=== PATIENT | male | born 1960 | race Caucasian/White ===

== ENCOUNTER 2024-06-24 14:06 | Inpatient (IN) | payer OTHER, SELFPAY ==
[2024-06-24 11:05] VITALS: BP 115/74
[2024-06-24 11:28] LABS: % Basophils 1.2 % (0-2); % Eosinophils 1.8 % (0-6); % Immature Granulocytes 0.4 % (0-0.5); % Lymphocytes 8.2 % (20.5-51.1); % Monocytes 16.8 % (1.7-9.3); % Neutrophils 71.6 % (42.2-75.2); Absolute Basophils 0.1 10^3/uL (0-0.2); Absolute Eosinophils 0.1 10^3/uL (0-0.7); Absolute Lymphocytes 0.5 10^3/uL (1.2-3.4); Absolute Neutrophils 4.1 10^3/uL (1.4-6.5); Hematocrit 31.5 % (39.0-52.0); Hemoglobin 8.9 g/dL (13.0-18.0); Mean Corp Hgb Conc. 28.3 g/dL (33.0-37.0); Mean Corpuscular Hgb 19.8 pg (27.0-31.0); Mean Platelet Volume 8.9 fL (7.4-10.4); Nucleated Red Blood Cells % 0.7 % (-); Platelet Count 213 10^3/uL (130-400); Red Cell Dist. Width 21.5 % (11.5-14.5); White Blood Cell Count 5.7 10^3/uL (4.8-10.8)
[2024-06-24 11:33] LABS: INR 1.63; PT 19.6 Sec (11.4-14.6)
[2024-06-24 11:48] LABS: ALT (SGPT) 35 U/L (0-50); AST (SGOT) 47 U/L (17-59); Albumin 3.7 g/dl (3.5-5.0); Alkaline Phosphatase 178 U/L (38-126); Blood Urea Nitrogen 34 mg/dl (9-20); Carbon Dioxide 24 mmol/L (22-30); Chloride 97 mmol/L (98-107); Glucose 88 mg/dl (70-99); Potassium 4.4 mmol/L (3.5-5.1); Sodium 131 mmol/L (135-145); Total Bilirubin 1.6 mg/dl (0.2-1.3); Total Protein 6.9 g/dl (6.3-8.2); eGFR 44.46
[2024-06-24 11:52] LABS: NT-proBNP 2160 pg/ml
--- NOTE | 2024-06-24 11:59 | ED.GENMED ---
History of Present Illness
<Mercy Ramírez PA-C - Last Filed: 06/24/24 18:10>
General
Chief Complaint: Breathing Problem
Source: patient
Exam Limitations: none
Time Seen by Provider: 06/24/24 11:30
Nursing documentation reviewed up to this point in time: agreed with
History of Present Illness
History of Present Illness:
This is a 64-year-old male with past medical history of A-fib on Eliquis, pacemaker in place, CHF, presents emergency department today with concerns of shortness of breath, generalized weakness, and lower extremity edema. Patient reports this has
been going on for months but notes that the past 2 weeks or so that his symptoms have gotten acutely worse. Patient currently follows with a confidential secretary from [facility]. He saw his confidential secretary around 4 weeks ago and described the symptoms and
they increase his Lasix to 40 mg twice daily and they also started him on Jardiance as well and notes that this does not improve his symptoms and if anything he feels worse. Patient states that the swelling now goes up to his thighs bilaterally.
He denies chest pain. He denies any wheezing
Past History
<Mercy Ramírez PA-C - Last Filed: 06/24/24 18:10>
Past History
ED Past Medical History: Cancer and Other
ED Past Surgical History: Other
Social History
Drug: None
Living: with family
Employment: Employed
Review of Systems
<Mercy Ramírez PA-C - Last Filed: 06/24/24 18:10>
Review of Systems
All Other Systems: ROS reviewed and negative except as documented in HPI and ROS
Phy Exam
<Mercy Ramírez PA-C - Last Filed: 06/24/24 18:10>
Physical Exam
Physical Exam:
General: Patient is well appearing and in no acute distress; non-toxic
Skin: Warm and dry, no rashes or lesions
Head: Normocephalic, atraumatic
Eyes: Sclera non-icteric. EOMs intact.
Cardiac: Regular rate and rhythm, no murmurs
Peripheral Vascular: Bilateral lower extremity edema extending up to mid thigh
Pulm: Normal respiratory effort, no wheezes, rales, rhonchi
Abdomen: No abdominal tenderness to palpation
Neuro: CN II-XII intact, no focal neurologic deficits.
Psychiatric: Appropriate mood and affect.
Scores
<Mercy Ramírez PA-C - Last Filed: 06/24/24 18:10>
Heart Failure Risk
Heart Failure Risk Score: Yes
History of Stroke or TIA: No
History of intubation for respiratory distress: No
Heart rate on ED arrival >/= 110: No
SaO2 <90% on arrival on room air: No
HR >/=110 during 3min walk test (or too ill to perform test): No
ECG has acute ischemic changes: No
Urea >/=12mmol/L (BUN 33.6mg/dL): Yes
Serum CO2>/=35mmol/L: No
Troponin I or T elevated to [place] Level (0.4mg/dL): No
NT-proBNP >/=5,000ng/L (5,000pg/ml): No
HF Risk Score: 1
Admission Status: MEDIUM RISK 5.1% Consider observation or discharge to home with homecare & f/u visit to PCP/Bugg[facility], or SNF for treatment
Course
<Mercy Ramírez PA-C - Last Filed: 06/24/24 18:10>
Orders/Labs/Results
Orders:
Orders
06/24/24 Lunch
2 Gram Sodium [Sodium, 2 Gram]
At Your Request: Full Participation
06/24/24 11:01
EKG [Electrocardiogram (*1)] Urgent
Reason for Study: Shortness of Breath
EKG- Treatment ONCE
CR Chest - 2 Views Urgent
Comment:
Reason For Exam: SOB
06/24/24 11:14
Complete Blood Count/With Diff Urgent
Comprehensive Metabolic Panel Urgent
Glycohemoglobin (HgbA1c) Urgent
Pro-BNP [NT-proBNP] Urgent
Prothrombin Time Urgent
TSH Urgent
Total Thyroxine Urgent
Troponin I Urgent
06/24/24 11:48
Interrogate Pacemaker- Treatment ONCE
06/24/24 12:34
Furosemide [Lasix] 40 mg IV NOW STA
06/24/24 13:36
Admit/Transfer Patient As Directed
Co-Sign Provider:
Level of Care: Inpatient admission
Assign to:: Telemetry
Physician / Group: Clark Schulte
Diagnosis: acute on chronic HFpEF
Reason for Telemetry: Acute Heart Failure
Date to Stop Telemetry: 06/27/24
Time to Stop Telemetry: 11:00
Reason for Hospitalization: acute on chronic HFpEF
Expected length of stay greater than two midnights?: Yes
ELOS- Estimated Length of Stay in days: 3
I certify the patient meets the requirements for IP care: Yes
PRN Pain Medication Management As Directed
May give lesser potent ordered pain med per pt: Yes
preference::
Protocol:: Medication orders for pain may be administered in a
manner that supports deferring to patient preference
when the pt is:
- Requesting an ordered lesser potent pain medication.
Least to most potent pain medications are defined
as: acetaminophen < NSAID < tramadol < opioids
(morphine, oxycodone, hydromorphone).
- Requesting a lesser dose of the same medication IF
ORDERED.
- Requesting a less intrusive route of administration
if both routes are prescribed by the provider (PO <
IV).
06/24/24 13:38
Code Status As Directed
Resuscitation Status: Full Code
06/24/24 15:10
Add On- LAB Routine
Tests Added?: TSH; T4; A1c
Echo 2D MMode Color/Doppler Routine
Reason for Study: heart failure
CARDIOLOGY CONSULT Routine
Consulting Provider: Calin Curiel
Was physician already notified: Yes
Reason for consult: AoC HFpEF
HF DIETARY CONSULT Routine
HF EDUCATOR CONSULT Routine
Comment:
Activity As Directed
Activity Level: As Tolerated
Intake/ Output As Directed
Frequency: Per unit guidelines
Patient Education As Directed
Type: CHF folder
Comment: give on admission. Document in Interdisciplinary Education record
Sleep Apnea Assessment by RN As Directed
Comment:
Physician Instructions:
Vital Signs As Directed
Frequency: Other
Additional Instructions:: Q12 or per unit guidelines if more frequent.
Weight As Directed
Frequency: Daily
Type of Scale: Standing Scale
Comment: Daily morning weight. If unable to stand, use balanced bed scale.
Weight As Directed
Frequency: Once
Type of Scale: Standing Scale
Comment: Upon Admission. If unable to stand, use balanced bed scale.
Pulse Ox/cont/shift [RESP] Routine
Quantity: 1
Special Instructions: Daily pulse oximetry at rest. If greater than 92% at rest also obtain pulse oximetry
while ambulating as tolerated.
06/24/24 15:51
Acetaminophen [Tylenol] 650 mg PO Q4HPRN PRN
06/24/24 16:00
Furosemide [Lasix] 80 mg IV BID AT 0800,1600
06/24/24 20:00
Apixaban [Eliquis] 5 mg PO BID
Metoprolol [Lopressor] 50 mg PO BID
Potassium Chloride [KCl] 20 meq PO BID
06/25/24 06:00
Cardiovascular Evaluation IN AM
Complete Blood Count/No Diff IN AM
Comprehensive Metabolic Panel IN AM
Magnesium IN AM
06/25/24 08:00
Dapagliflozin [Farxiga] 10 mg PO DAILY
Multivitamin [Theragran] 1 tablet PO DAILY
mesalamine [Lialda] See Dose Instructions PO DAILY
06/27/24 11:00
DC Protocol for Telemetry ONCE
Abnormal Lab Results
06/24/24
11:14
RBC 4.50 L 10^6/uL
(4.70-6.10)
Hgb 8.9 L g/dL
(13.0-18.0)
Hct 31.5 L %
(39.0-52.0)
MCV 70.0 L fL
(80.0-94.0)
MCH 19.8 L pg
(27.0-31.0)
MCHC 28.3 L g/dL
(33.0-37.0)
RDW 21.5 H %
(11.5-14.5)
Absolute Lymphs (auto) 0.5 L 10^3/uL
(1.2-3.4)
Absolute Monos (auto) 1.0 H 10^3/uL
(0.1-0.6)
Lymphocytes % 8.2 L %
(20.5-51.1)
Monocytes % 16.8 H %
(1.7-9.3)
PT 19.6 H Sec
(11.4-14.6)
Sodium 131 L mmol/L
(135-145)
Chloride 97 L mmol/L
(98-107)
BUN 34 H mg/dl
(9-20)
Creatinine 1.7 H mg/dL
(0.7-1.3)
Total Bilirubin 1.6 H mg/dl
(0.2-1.3)
Alkaline Phosphatase 178 H U/L
(38-126)
06/24/24 11:14
06/24/24 11:14
Vital Signs
Initial and Last Documented VS:
Initial Vital Signs
Pulse Resp BP Pulse Ox
87 20 115/74 94
06/24/24 11:05 06/24/24 11:05 06/24/24 11:05 06/24/24 11:05
Last Documented Vital Signs
Temp Pulse Resp BP Pulse Ox
97.4 F 66 18 125/79 93
06/24/24 15:58 06/24/24 15:58 06/24/24 15:58 06/24/24 15:58 06/24/24 15:58
<Efrain Littlejohn, DO - Last Filed: 06/24/24 12:12>
Orders/Labs/Results
Orders:
Orders
06/24/24 Lunch
2 Gram Sodium [Sodium, 2 Gram]
At Your Request: Full Participation
06/24/24 11:01
EKG [Electrocardiogram (*1)] Urgent
Reason for Study: Shortness of Breath
EKG- Treatment ONCE
CR Chest - 2 Views Urgent
Comment:
Reason For Exam: SOB
06/24/24 11:14
Complete Blood Count/With Diff Urgent
Comprehensive Metabolic Panel Urgent
Glycohemoglobin (HgbA1c) Urgent
Pro-BNP [NT-proBNP] Urgent
Prothrombin Time Urgent
TSH Urgent
Total Thyroxine Urgent
Troponin I Urgent
06/24/24 11:48
Interrogate Pacemaker- Treatment ONCE
06/24/24 12:34
Furosemide [Lasix] 40 mg IV NOW STA
06/24/24 13:36
Admit/Transfer Patient As Directed
Co-Sign Provider:
Level of Care: Inpatient admission
Assign to:: Telemetry
Physician / Group: Clark Schulte
Diagnosis: acute on chronic HFpEF
Reason for Telemetry: Acute Heart Failure
Date to Stop Telemetry: 06/27/24
Time to Stop Telemetry: 11:00
Reason for Hospitalization: acute on chronic HFpEF
Expected length of stay greater than two midnights?: Yes
ELOS- Estimated Length of Stay in days: 3
I certify the patient meets the requirements for IP care: Yes
PRN Pain Medication Management As Directed
May give lesser potent ordered pain med per pt: Yes
preference::
Protocol:: Medication orders for pain may be administered in a
manner that supports deferring to patient preference
when the pt is:
- Requesting an ordered lesser potent pain medication.
Least to most potent pain medications are defined
as: acetaminophen < NSAID < tramadol < opioids
(morphine, oxycodone, hydromorphone).
- Requesting a lesser dose of the same medication IF
ORDERED.
- Requesting a less intrusive route of administration
if both routes are prescribed by the provider (PO <
IV).
06/24/24 13:38
Code Status As Directed
Resuscitation Status: Full Code
06/24/24 15:10
Add On- LAB Routine
Tests Added?: TSH; T4; A1c
Echo 2D MMode Color/Doppler Routine
Reason for Study: heart failure
CARDIOLOGY CONSULT Routine
Consulting Provider: Calin Curiel
Was physician already notified: Yes
Reason for consult: AoC HFpEF
HF DIETARY CONSULT Routine
HF EDUCATOR CONSULT Routine
Comment:
Activity As Directed
Activity Level: As Tolerated
Intake/ Output As Directed
Frequency: Per unit guidelines
Patient Education As Directed
Type: CHF folder
Comment: give on admission. Document in Interdisciplinary Education record
Sleep Apnea Assessment by RN As Directed
Comment:
Physician Instructions:
Vital Signs As Directed
Frequency: Other
Additional Instructions:: Q12 or per unit guidelines if more frequent.
Weight As Directed
Frequency: Daily
Type of Scale: Standing Scale
Comment: Daily morning weight. If unable to stand, use balanced bed scale.
Weight As Directed
Frequency: Once
Type of Scale: Standing Scale
Comment: Upon Admission. If unable to stand, use balanced bed scale.
Pulse Ox/cont/shift [RESP] Routine
Quantity: 1
Special Instructions: Daily pulse oximetry at rest. If greater than 92% at rest also obtain pulse oximetry
while ambulating as tolerated.
06/24/24 15:51
Acetaminophen [Tylenol] 650 mg PO Q4HPRN PRN
06/24/24 16:00
Furosemide [Lasix] 80 mg IV BID AT 0800,1600
06/24/24 20:00
Apixaban [Eliquis] 5 mg PO BID
Metoprolol [Lopressor] 50 mg PO BID
Potassium Chloride [KCl] 20 meq PO BID
06/25/24 06:00
Cardiovascular Evaluation IN AM
Complete Blood Count/No Diff IN AM
Comprehensive Metabolic Panel IN AM
Magnesium IN AM
06/25/24 08:00
Dapagliflozin [Farxiga] 10 mg PO DAILY
Multivitamin [Theragran] 1 tablet PO DAILY
mesalamine [Lialda] See Dose Instructions PO DAILY
06/27/24 11:00
DC Protocol for Telemetry ONCE
Abnormal Lab Results
06/24/24
11:14
RBC 4.50 L 10^6/uL
(4.70-6.10)
Hgb 8.9 L g/dL
(13.0-18.0)
Hct 31.5 L %
(39.0-52.0)
MCV 70.0 L fL
(80.0-94.0)
MCH 19.8 L pg
(27.0-31.0)
MCHC 28.3 L g/dL
(33.0-37.0)
RDW 21.5 H %
(11.5-14.5)
Absolute Lymphs (auto) 0.5 L 10^3/uL
(1.2-3.4)
Absolute Monos (auto) 1.0 H 10^3/uL
(0.1-0.6)
Lymphocytes % 8.2 L %
(20.5-51.1)
Monocytes % 16.8 H %
(1.7-9.3)
PT 19.6 H Sec
(11.4-14.6)
Sodium 131 L mmol/L
(135-145)
Chloride 97 L mmol/L
(98-107)
BUN 34 H mg/dl
(9-20)
Creatinine 1.7 H mg/dL
(0.7-1.3)
Total Bilirubin 1.6 H mg/dl
(0.2-1.3)
Alkaline Phosphatase 178 H U/L
(38-126)
06/24/24 11:14
06/24/24 11:14
Vital Signs
Initial and Last Documented VS:
Initial Vital Signs
Pulse Resp BP Pulse Ox
87 20 115/74 94
06/24/24 11:05 06/24/24 11:05 06/24/24 11:05 06/24/24 11:05
Last Documented Vital Signs
Temp Pulse Resp BP Pulse Ox
97.4 F 66 18 125/79 93
06/24/24 15:58 06/24/24 15:58 06/24/24 15:58 06/24/24 15:58 06/24/24 15:58
<Mercy Ramírez PA-C - Last Filed: 06/24/24 18:10>
MDM/Problems Addressed
Differential Diagnosis Includes:
ddx include acute heart failure, symptomatic anemia, malignancy, ACS, pneumonia
MDM/Problems Addressed:
64-year-old male presents emergency department today with concerns of bilateral lower extremity edema dyspnea upon exertion, and generalized weakness for the past few months acutely worsening the past few weeks. He has been unresponsive to
increases in his medication at home. Patient states that he barely able to get dressed without significant some shortness of breath. Here in emergency department his proBNP is elevated he is fluid overloaded on exam he has mild interstitial edema
on chest x-ray. Will admit for IV diuresis
<Mercy Ramírez PA-C - Last Filed: 06/24/24 18:10>
*Critical Care Note
Total Time (30-74mins, 75-104mins- exclusive of procedures): Not Applicable
ED Attending Note
<Mercy Ramírez PA-C - Last Filed: 06/24/24 18:10>
-
Portions of this chart may have been created with voice recognition software.� Occasional wrong word or��sound alike� substitutions may have occurred due to the inherent limitations of voice recognition software.
<Efrain Littlejohn DO - Last Filed: 06/24/24 12:12>
ED Attending Note
Patient seen and examined by attending physician: Yes
I performed the substantive portion of visit, reviewed & personally made and approve the management plan that is documented in note by myself or TERRA.: Yes
ED Attending Note:
Seen with JOE examined independently 64-year-old male with AVR x 2 heart failure presents with fatigue shortness of breath dyspnea on exertion despite his meds being titrated by his confidential secretary here looks like he has acute on chronic anemia, pain
hard on his chest x-ray
Discharge Plan
Departure
Patient Disposition: Admit
Date of Disposition: 06/24/24
Time of Disposition: 12:44
Presentation/result/management discussed w/ accepting MD/DO: Hospitalist
Patient with high blood pressure during this ER visit?: No
Condition: Fair
Discharge Problem:
Acute on chronic heart failure, Acute kidney injury, Anemia
Interventions
Interventions:
*Risk Screen - Suicide Last Done: 06/24/24 12:11
*General Assessment Last Done: 06/24/24 12:11
*Neglect/Abuse Screening Last Done: 06/24/24 12:11
*ED- Fall Risk Assessment Last Done: 06/24/24 12:11
*ED COVID-19 Vaccine History Last Done: 06/24/24 12:11
*Nursing Disposition Last Done: 06/24/24 15:09
ED- Cardiac Assessment Last Done: 06/24/24 12:15
ED- Neurological Assessment Last Done: 06/24/24 12:14
ED- Pulmonary Assessment Last Done: 06/24/24 12:24
Discharge Date and Time
Discharge Date/Time: 06/24/24 15:10
[2024-06-24 12:11] VITALS: BP 112/72
[2024-06-24 12:13] LABS: Anisocytosis 2+; Hypochromasia 3+; Normal RBC Morphology No; Polychromasia 2+
[2024-06-24 12:14] LABS: Acanthocytes 1+; Ovalocytes 1+
[2024-06-24 12:15] VITALS: BP 112/72
[2024-06-24 12:17] LABS: Troponin I 0.022 ng/ml
[2024-06-24] MEDS: LASIX 40 MG IV (13:16)
--- NOTE | 2024-06-24 14:20 | CON.CAR ---
Addendum entered and electronically signed by Calin Curiel MD 06/24/24 20:31:
64-year-old man admitted with acute on chronic HFimpEF. He underwent surgical bioprosthetic aortic valve replacement in 2012, subsequently with heart failure with improved EF, initially in 2012 EF was 15 to 20% and subsequently 50 to 55% December
2020. He required TAVR and SAVR in August 2023. Pacemaker implantation 2021.
PMH: Ulcerative colitis, anemia with history of GI bleeding and now with persistent/permanent A-fib, HFimpEF, nonobstructive CAD at catheterization
PSH: SAVR May 2012, TAVR in SAVR August 2023, history of LV thrombectomy 2012, pacemaker 2021 (Medtronic), arthroscopic knee surgery, jaw surgery, herniorrhaphy
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
Outpatient meds: Apixaban, Jardiance, furosemide 80 twice daily, mesalamine, metoprolol tartrate 50 twice daily, potassium 20 twice daily
125/79, pulse 66, respiratory 18, sats 93%, Weight is 97.9 kg, no acute distress, lungs relatively clear, regular rate and rhythm, JVD elevated, soft systolic murmur, distant heart tones, abdomen benign, 1+ to 2+ edema
EKG: Atrial fibrillation, ventricular pacing
Chest x-ray: Massive cardiomegaly, rule out pericardial effusion, vascular congestion
Echo 06/24/2024: Moderate LVH, D-shaped septum, septal hypokinesis/contraction abnormality with severe inferoapical hypokinesis, EF 45-50%, MAC, mild MR, severely dilated left atrium, TAVR in SAVR, peak/mean gradient 12/6, trace AI could be
underestimated, severely dilated and hypokinetic RV, pacing wires, severe TR, moderate right atrial dilatation, pulmonary systolic pressure 56 mmHg, aorta is 4.5 cm
Hemoglobin 8.9, was 12.9 years ago, sodium 131, BUN and creatinine 34 and 1.7, troponin 0.02, proBNP 2160
Impression:
Acute on chronic heart failure with mildly reduced EF
TAVR in SAVR 2023
Nonischemic cardiomyopathy with improved EF, initial EF 15 to 20% prior to SAVR
RV dysfunction with moderate to severe pulmonary hypertension and severe tricuspid regurgitation
High-grade heart block with Medtronic pacemaker
Permanent atrial fibrillation
Ulcerative colitis with bleeding (which is why mechanical valve was not placed in 2012)
History of GI bleed
Nonobstructive CAD by catheterization 2012
Plan:
He presents with acute on chronic heart failure with mildly reduced EF, possibly related in large part to RV dysfunction, pulmonary hypertension and tricuspid regurgitation which might relate to pacemaker. His right heart is deteriorated
substantially since echo of 2020, and pulmonary artery systolic pressure has risen somewhat. It seems unlikely that he is WHO class I. I wonder if tricuspid regurgitation from pacing lead is playing a role in RV dysfunction.
Given this, will be difficult to optimize his volume status in the setting of right heart dysfunction.
For now, continue IV furosemide and dapagliflozin. Not clear that he is a good candidate for spironolactone given his presumed CKD although we do not know if there is an element of DOMI.
Unclear that tricuspid valve intervention would be of value in this situation. Unclear that transesophageal echo would be of much value. His IVC is dramatically dilated. We will continue to follow.
Will obtain old records.
Original Note:
Consultation
Consultation Request
Date/Time Consultation Requested: 06/24/2024, 1400
Date/Time Consultation Performed: 06/24/2024, 1420
Requesting Provider: Mercy Ramírez PA-C
Performing Provider: ERWIN Monroy for Dr. Curiel
Reason for Consultation: FERGUSON and fatigue
Medical History
-
Chief Complaint: FERGUSON, fatigue
History of Present Illness:
64-year-old male with history of bioprosthetic AVR at [facility] on 05/27/2012 with LV thrombus detected on SAMARIA prior to surgery and resected during surgery, EF 15 to 20% prior to AVR, improvement in LV function to EF 50 to 55% on echo 12/2020,
subsequent valve in valve TAVR August [address] [facility], atrial flutter/fibrillation status post multiple cardioversions, now with permanent atrial fibrillation, syncope with bradycardia and heart block status post permanent pacemaker 2021 (Medtronic)
at [facility], anemia w/ GI bleed due to ulcerative colitis 2007, Echo at that time of pacemaker in 2021 showed EF 65% with stable bioprosthetic valve mean gradient 12 mmHg. He was previously followed by Dr. Bellamy and was last seen in May
2022. More recently he has been followed by Dr. Josh Prater at [facility]. Patient reports he has not felt much better since the TAVR in August 2023 with increasing shortness of breath with exertion and lower extremity edema. He has had a 10 pound
weight gain over the past month with doubling of outpatient diuretic to Lasix 80 mg twice daily 3 weeks ago. He was subsequently started on Jardiance. He tells me his annual pacemaker check last week showed permanent atrial fibrillation. He
lives alone and was seen by family members 4 days ago who were concerned about his health and advised him to get medical care. He tells me he had a few things to get taking care of over the past few days but that his brother dropped him off here at
the ED for evaluation today.
ED evaluation:
Chest x-ray mild interstitial cardiogenic pulmonary edema, previous valve in valve TAVR
EKG: V paced
BUN/creatinine 34/1.7, NA 131, K4.4, hemoglobin 8.9
proBNP 2160
Troponin 0.022,
Past medical history:
Bioprosthetic AVR 05/27/2012 at [facility]
TAVR August 2023, [facility]
LV thrombus 2012 resected at time of bioprosthetic AV
Atrial fibrillation, now permanent
-A-fib prior to surgery and 2012, status post-SAMARIA cardioversion 07/2012
-Cardioversion 2020
Syncope with heart block status post permanent pacemaker 2021, Medtronic, at [facility]
Ulcerative colitis
Anemia
Heart failure with reduced EF
cardiomyopathy
Nonobstructive CAD per cath 05/2012
GI bleed
Past Medical History
Past Medical History: Other (As above)
Past Surgical History: Other (Bioprosthetic AVR 2012, pacemaker 02/2022, torn meniscus repair 2015, jaw surgery , right inguinal hernia repair 1993)
Social History
Tobacco: Former Smoker (Quit 20 years ago)
Alcohol: Occasional (A beer a couple times a week)
Living: Alone
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
Family History
Family History: Other (Father with hypertension, CAD)
Allergies / Home Medications
Allergy/AdvReac Type Severity Reaction Status Date / Time
amoxicillin Allergy Unknown Unknown Verified 12/24/20 07:28
�Medication �Instructions �Recorded �Confirmed �Type
metoprolol tartrate 50 mg tablet 50 mg PO BID 07/11/12 06/24/24 History
mesalamine 1.2 gram tablet,delayed 4.8 g PO DAILY 04/12/16 06/24/24 History
release (Lialda)
apixaban 5 mg tablet (Eliquis) 5 mg PO BID 12/24/20 06/24/24 History
acetaminophen 650 mg 1,300 mg PO [id number] PRN mild pain 06/24/24 06/24/24 History
tablet,extended release (Tylenol 8
Hour)
empagliflozin 10 mg tablet 10 mg PO DAILY 06/24/24 06/24/24 History
(Jardiance)
furosemide 40 mg tablet (Lasix) 80 mg PO BID 06/24/24 06/24/24 History
potassium chloride 20 mEq 20 meq PO BID 06/24/24 06/24/24 History
tablet,extended release
therapeutic multivitamin 1 tab PO DAILY 06/24/24 06/24/24 History
Review of Systems
-
History Source: Patient
Constitutional: No Symptoms
Physical Exam
Vital Signs
Pulse Resp BP Pulse Ox
63 14 120/83 97
06/24/24 12:15 06/24/24 12:15 06/24/24 13:16 06/24/24 12:15
Lab Results
06/24/24 11:14
06/24/24 11:14
Troponin I 0.022 ng/ml 06/24/24 11:14
Yuv-H-Acuoicicgzw Pept 2160 pg/ml 06/24/24 11:14
GEN: No distress, lying flat in bed awake, Ox3
HEENT: supple, anicteric, mmm
LUNGS: Rales at bases
CV: Reg, S1/S2, 2 out of 6 diastolic murmur at base, 3 out of 6 systolic ejection murmur left lower sternal border and apex
ABD: soft, BS+, NT/ND
EXT: 2+ bilateral lower extremity edema to thighs
NEURO: Gross non-focal
SKIN: No rash
Impression / Plan
-
PCP:
Primary learning developer, previously Dr. Bellamy, currently Dr. Josh Prater at [facility]
Impression:
Acute heart failure\\
Aortic valve disease status post bioprosthetic AVR 2012, #[id number] (at [facility]), subsequent valve in valve TAVR 08/2023 (at [facility])
Lower extremity edema
Dyspnea on exertion
Atrial fibrillation, permanent
Chronic oral anticoagulation
Permanent pacemaker, Medtronic
Nonobstructive CAD per cath 05/2012
Cardiomyopathy
Previous cardiovascular testing:
Echo 12/17/2020: EF 50 to 55%, mod LVH, mildly dilated RV with normal systolic function, severe LAE, well-seated bioprosthetic AV peak/mean 15/9 mmHg, mild to moderate TR, PAP 43 to 48 mmHg, proximal ascending aorta 4.5 cm
Echo 01/25: EF 50-55%, stable AVR, mean gradient 6, PAP 34-39
Echo 01/23, EF 50 to 55%, stable AVR, mean gradient 11
SAMARIA 07/20 EF 45%
Cardiac cath 05/2012, nonobstructive CAD, elevated filling pressures
Plan:
64-year-old male with history of bioprosthetic AVR at [facility] on 05/27/2012 with LV thrombus detected on SAMARIA prior to surgery and resected during surgery, EF 15 to 20% prior to AVR, improvement in LV function to EF 50 to 55% on echo 12/2020,
subsequent valve in valve TAVR August 2024 at [facility], atrial flutter/fibrillation status post multiple cardioversions, now with permanent atrial fibrillation, syncope with bradycardia and heart block status post permanent pacemaker 2021 (Medtronic)
at [facility], anemia w/ GI bleed due to ulcerative colitis 2007, Echo at that time of pacemaker in 2021 showed EF 65% with stable bioprosthetic valve mean gradient 12 mmHg. He was previously followed by Dr. Bellamy and was last seen in May
2022. More recently he has been followed by Dr. Josh Prater at [facility]. Patient reports he has not felt much better since the TAVR in August 2023 with increasing shortness of breath with exertion and lower extremity edema. He has had a 10 pound
weight gain over the past month with doubling of outpatient diuretic to Lasix 80 mg twice daily 3 weeks ago. He was subsequently started on Jardiance. He tells me his annual pacemaker check last week showed permanent atrial fibrillation. He
lives alone and was seen by family members 4 days ago who were concerned about his health and advised him to get medical care. He tells me he had a few things to get taking care of over the past few days but that his brother dropped him off here at
the ED for evaluation today.
1. Acute heart failure
-Volume overloaded on exam with significant lower extremity edema, crackles, proBNP 0 chest x-ray with mild interstitial pulmonary edema. Patient has not been responsive to up titration of outpatient diuretics and advancing of GDMT with recent
addition of Jardiance. Chronically on metoprolol tartrate 50 mg twice daily. Says he was previously on lisinopril but caused high blood pressure (?)
-Admit for IV diuresis
-Check echo
-Get records from current learning developer. I called office and requested.
-Continue Jardiance
-Consider adding JOEY/ARB/ARNI and spironolactone
-Monitor daily BMP and mag
-Daily weights, I/O
2. History of bioprosthetic AVR and valve in valve TAVR
-Check echo to assess status of prosthetic valves
-Getting records from previous learning developer
-SBE prophylaxis
3. Atrial fibrillation
-Pacemaker remotely interrogated in the ED shows that he has been in A-fib for at least the past year. Rates controlled.
-Previous history of cardioversions. Never had ablation. Unclear if he was ever on antiarrhythmic therapy.
-Continue oral anticoagulation with Eliquis. Denies bleeding concerns
-Rate control with metoprolol tartrate. Depending on LV function may switch to metoprolol succinate.
-Monitor on telemetry
-EKG personally reviewed: V paced
4. Hyperlipidemia
Check FLP
-Previously on atorvastatin
5. History of pacemaker
-Placed in 2021 when he presented with syncope and noted to have heart block
-Medtronic dual-chamber device
-Remote interrogation in ED shows permanent atrial fibrillation for at least the past year, V paced 96%, 10 years on battery
Data Reviewed
-
EKG: Tracing Personally Visualized and interpreted
Medical Tests (Nuc Med, Echo etc): Image Personally Visualized and interpreted
Labs: Labs Reviewed by me
--- NOTE | 2024-06-24 14:54 | HPS.HSE ---
Family Physician
-
Family Physician: Mario Merchant
Chief Complaint
-
Shortness of breath; weight gain; fatigue
History of Present Illness
Mario Kelly, 64-year-old male with a complicated cardiac history, has had worsening dyspnea on exertion, progressive weight gain which has been refractory to increased furosemide dosing and fatigue over the past couple of months. He has a history of
dilated aortic root for which he underwent open heart replacement in 2012; this failed and required a TAVR in 2023. He also has a history of atrial fibrillation, and has a pacemaker. Also started on empagliflozin a month or so ago. His furosemide
was increased from 40 mg BID to 80 mg BID a month ago for weight gain, but that did not help. He does not check his weights at home but reports worsening LE edema. Also reports that furosemide has not been making him urinate as much as he used to;
took 80 PO before coming to the ED this morning, and to go to the bathroom only once.
Medical History
Past Medical History
Past Medical History: Reports Other (HFpEF; AFib; pacemaker in place; dilated aortic root; ulcerative colitis; hyperlipidemia)
Past Surgical History: Reports Other (open heart aortic valve replacement 2012; pacemaker implant 2021; TAVR 2023; right inguinal hernia repair 1993; L torn meniscus repair 2015)
Social History
Tobacco: Former Smoker
Alcohol: Occasional
Drug: None
Family History
Family History: Not pertinent
Allergies / Home Medications
Allergies reflects when Allergies were last updated in [facility].
Home Medications with original date entered in [facility]
Allergy/Medication List:
Allergies
Allergy/AdvReac Type Severity Reaction Status Date / Time
amoxicillin Allergy Unknown Unknown Verified 12/24/20 07:28
Home Medications
metoprolol tartrate 50 mg tablet 50 mg PO BID 07/11/12
mesalamine 1.2 gram tablet,delayed release (Lialda) 4.8 g PO DAILY 04/12/16
apixaban 5 mg tablet (Eliquis) 5 mg PO BID 12/24/20
acetaminophen 650 mg tablet,extended release (Tylenol 8 Hour) 1,300 mg PO Q29PEIN PRN mild pain 06/24/24
empagliflozin 10 mg tablet (Jardiance) 10 mg PO DAILY 06/24/24
furosemide 40 mg tablet (Lasix) 80 mg PO BID 06/24/24
potassium chloride 20 mEq tablet,extended release 20 meq PO BID 06/24/24
therapeutic multivitamin 1 tab PO DAILY 06/24/24
Review of Systems
-
Constitutional: Reports Fatigue and Other (weight gain)
EENT: Reports No Symptoms
Respiratory: Reports Other (dyspnea on exertion)
Cardiac: Reports No Symptoms
Abdomen/GI: Reports No Symptoms
: Reports No Symptoms
Musculoskeletal: Reports No Symptoms
Skin: Reports No Symptoms
Neurological: Reports No Symptoms
Endocrine: Reports No Symptoms
Hematologic/Lymphatic: Reports No Symptoms
Psych: Reports No Symptoms
Physical Exam
Vital Signs
Vital Signs
Pulse Resp BP Pulse Ox
63 14 120/83 97
06/24/24 12:15 06/24/24 12:15 06/24/24 13:16 06/24/24 12:15
Physical Exam
General: No Apparent Distress and Comfortable
HEENT: NormoCephalic, Anicteric, Moist mucous membranes and Atraumatic
Respiratory: Non Labored Respirations and Other (decreased breath sound bilaterally at bases)
Cardiac: S1/S2 and Regular Rhythm; No Murmur, Rub or Gallop
GI: Soft, Non Tender and Distended
Musculoskeletal: No Clubbing, No Cyanosis, Edema, Left Lower Extremity (3+) and Edema, Right Lower Extremity (3+)
Skin: Warm, Dry and IV/Catheter Site
Neuro: Awake, Alert, Oriented, No Motor Deficits and No Sensory Deficits
Hematologic/Lymphatic: No Lymphadenopathy
Psych: Calm and Intact Judgment/Insight
Laboratory Results
-
06/24/24 11:14
06/24/24 11:14
Laboratory Results
PT 19.6 Sec (11.4-14.6) H 06/24/24 11:14
INR 1.63 06/24/24 11:14
Total Bilirubin 1.6 mg/dl (0.2-1.3) H 06/24/24 11:14
AST 47 U/L (17-59) 06/24/24 11:14
ALT 35 U/L (0-50) 06/24/24 11:14
Alkaline Phosphatase 178 U/L (38-126) H 06/24/24 11:14
Troponin I 0.022 ng/ml 06/24/24 11:14
Impression/Plan
-
Acute on chronic heart failure with preserved ejection fraction
- Hypervolumia on exam; pro-BNP 2160, CXR with pulmonary edema and severe cardiomegaly.
- IV furosemide 80 mg BID.
- Follow I&O and daily weight.
- 2 gram sodium diet.
- Continue SGLT2 and metoprolol.
- Check echocardiogram.
- Cardiology consultation.
Aortic valvular disease
History of aortic root dilation
Status-post open heart valve replacement 2012
Status-post TAVR 2023
- Echocardiogram.
- Follows cardiology team at [facility].
Permanent atrial fibrillation
Sinus bradycardia
Status-post pacemaker placement
- Continue metoprolol and apixaban.
- Follow on telemetry.
Hypokalemia
- Continue potassium supplementation.
- Follow CMP and Mg; replete as needed.
Hyponatremia
- Mild, and likely hypervolumic.
- Follow CMP.
Elevated creatinine
- Baseline unclear, although he denies CKD.
- If this is an DOMI, likely cardiorenal and should respond to diuresis.
- Follow CMP.
Microcytic anemia
- Of unclear etiology.
- Check iron studies and lysis labs.
Hyperbilirubinemia
Elevated alkaline phosphatase
- Of unclear etiology.
- Follow CMP.
Primary hypertension
- Normotensive and stable.
- Continue metoprolol and diuresis.
Hyperlipidemia
- Check lipids.
- Previously on statin for a couple of days and did not like how he felt.
Ulcerative colitis
- Stable and not in a flare.
- Continue mesalamine.
Chronic back pain
- Continue acetaminophen as needed.
Thromboprophylaxis
- Apixaban.
Code status
- Full.
[2024-06-24 15:57] LABS: Total Thyroxine 5.72 ug/dl (5.5-11.0)
[2024-06-24 15:58] VITALS: BP 125/79; BMI 29.3
[2024-06-24 16:11] LABS: TSH 4.63 uIU/ml (0.47-4.68)
--- NOTE | 2024-06-24 19:19 | PTCARENOTE ---
Received patient from ED, ambulated from strecher to bed. AAOx3, VSS. denies SOB, pain or discomfort. Oriented to unit.
[2024-06-24 19:59] VITALS: BP 121/72
[2024-06-24] MEDS: ELIQUIS 5 MG PO (20:16)
[2024-06-24] MEDS: LOPRESSOR 50 MG PO (20:16)
[2024-06-24] MEDS: KCL 20 MEQ PO (20:17)
[2024-06-24 23:55] VITALS: BP 126/67
[2024-06-25 03:35] VITALS: BP 119/74
--- NOTE | 2024-06-25 04:24 | DOWNTIME ---
There was a [employer] Client Insurance Clerk Downtime on 06/25/2024 from 0100 to 06/26/2023 at 0420 . Downtime documentation of patient's care, including medication administrations, has been reconciled in the electronic record per guidelines. Refer to the
patient's paper chart under the miscellaneous tab to see printed paper medication records and downtime forms.
[2024-06-25 06:00] VITALS: BMI 28.7
[2024-06-25 07:30] VITALS: BP 112/69
[2024-06-25 08:20] LABS: Hematocrit 30.7 % (39.0-52.0); Hemoglobin 8.8 g/dL (13.0-18.0); Mean Corp Hgb Conc. 28.7 g/dL (33.0-37.0); Mean Corpuscular Hgb 19.9 pg (27.0-31.0); Mean Corpuscular Volume 69.3 fL (80.0-94.0); Mean Platelet Volume 9.5 fL (7.4-10.4); Platelet Count 183 10^3/uL (130-400); Red Blood Cell Count 4.43 10^6/uL (4.70-6.10); Red Cell Dist. Width 21.1 % (11.5-14.5); Reticulocyte Count 2.1 % (0.4-2.8); White Blood Cell Count 4.9 10^3/uL (4.8-10.8)
[2024-06-25 08:48] LABS: ALT (SGPT) 32 U/L (0-50); AST (SGOT) 41 U/L (17-59); Albumin 3.5 g/dl (3.5-5.0); Alkaline Phosphatase 177 U/L (38-126); Blood Urea Nitrogen 34 mg/dl (9-20); Calcium 8.7 mg/dl (8.4-10.2); Carbon Dioxide 23 mmol/L (22-30); Chloride 99 mmol/L (98-107); Estimated Creatinine Clearance 59 ml/min; Glucose 78 mg/dl (70-99); HDL Cholesterol 22 mg/dl; Iron 27 ug/dl (49-181); LDH 328 U/L (120-246); LDL Cholesterol, Calculated 50 mg/dl; Magnesium 2.1 mg/dl (1.6-2.3); Potassium 4.1 mmol/L (3.5-5.1); Sodium 131 mmol/L (135-145); Total Bilirubin 1.6 mg/dl (0.2-1.3); Total Cholesterol 85 mg/dl (50-199); Total Protein 6.6 g/dl (6.3-8.2); Triglyceride 66 mg/dl (10-149); Very Low Density Lipoprotein 13 mg/dl (0-30); eGFR 56.13
[2024-06-25 08:57] LABS: Percent Saturation 6 % (20-50); Total Iron Binding Capacity 422 ug/dl (261-462)
[2024-06-25 09:16] LABS: Ferritin 21.2 ng/ml (17.9-464.0)
[2024-06-25 10:00] LABS: Glycohemoglobin (HgbA1c) 5.4 % (4.0-5.6)
--- NOTE | 2024-06-25 10:13 | W.PN.CARDCBS ---
Addendum entered and electronically signed by Cristino Bellamy MD 06/25/24 17:00:
I saw and examined the patient.
The Mapping Pilot's note was reviewed and I agree with the note.
Comment:
GEN: No distress, awake, Ox3
HEENT: supple, anicteric, mmm
LUNGS: CTA, no wheezes/rales
CV: Reg, S1/S2, 1/6 syst LSB, S3+
ABD: soft, BS+, + distended
EXT: +1 edema
NEURO: Gross non-focal
SKIN: No rash
Plan:
Clinically he is improving. I reviewed his echo and I suspect his biggest issue may be his tricuspid regurgitation. I wonder whether this is pacemaker mediated?
Creatinine is at 1 4. Continue Lasix 40 mg IV twice daily. We had a lengthy discussion about expectations of care and trying to optimize him the best we can while hospitalized. I am going to hold his Eliquis and proceed with a right heart cath in
a.m. to better evaluate his PA pressures and pulmonary capillary wedge pressure. I suspect we may need to establish a new dry weight for him.
I discussed this at length with him and his family.
He remains in rate controlled atrial fibrillation.
His trans catheter aortic valve in valve looks excellent via transthoracic echo with low gradient and no significant aortic regurgitation.
Original Note:
Today's Communication / Plan
-
RHC in AM
Hold Eliquis starting tonight
Cont Lasix 40 mg IV BID, but was taking Lasix 80 mg PO BID prior to admission
52 min in face to face and coordination of care
Impression / Plan
-
PCP: Dr. Merchant
Primary literacy specialist: previously Dr. Bellamy, currently Dr. Josh Prater at [facility]
Impression:
Admitted with SOB and edema 06/24/24
Acute HFmrEF
CM EF 45-50% by echo 06/24/24
Aortic valve disease status
s/p bioprosthetic AVR #[id number] [place] at [facility] 2012
then s/p valve in valve TAVR at [facility] 08/2023
Permanent Afib
Atrial fibrillation, permanent
Chronic Eliquis OAC
s/p Medtronic PPM
Nonobstructive CAD per cath 05/2012
Cardiomyopathy
SAMARIA 07/2012: EF 45%
Echo 01/2017, EF 50 to 55%, stable AVR, mean gradient 11
Echo 01/2019: EF 50-55%, stable AVR, mean gradient 6, PAP 34-39
Echo 12/17/20: EF 50 to 55%, mod LVH, mildly dilated RV with normal systolic function, severe LAE, well-seated bioprosthetic AV peak/mean 15/9 mmHg, mild to mod TR, PAP 43 to 48 mmHg, prox ascending aorta 4.5 cm
Echo 06/24/24: EF 45-50%, septal hypokinesis/contraction abnormality with severe inferoapical hypokinesis, mild MR, TAVR in SAVR peak/mean 12/6 mmHg with trace aortic regurgitation that could be underestimated due to acoustic shadowing, severely
dilated and hypokinetic RV with pacing wires identified and evidence of severe TR with marked RA dilatation
Plan:
-Weight is down 5 lbs overnight. Patient reports a previous dry weight of 206 lbs and at one point as low as 198 lbs.
-DOMI with Cre up to 1.7 on admission. Improved to 1.4 on 06/25/24
-Cont Lasix 40 mg IV BID. Patient was taking Lasix 80 mg PO BID prior to admission. Could consider increasing to Lasix 80 mg IV BID if diuresis slows.
-Echo noted above, there is sev TR. Patient reports similar TR, seemed to be new after PPM and there was a thought by her team at [facility] that the TR would improve with AVR, but it never did.
-Given severity of TR and ongoing symptoms talked with patient about RHC in AM and he is agreeable, will schedule.
-Patient was taking Lopressor 50 mg BID prior to admission and it has been continued, but with EF down at 45% will change to Coreg 6.25 mg BID, ordered by me 06/25/24
-Will hold off on adding JOEY/ARB/ARNI/aldosterone antagonist due to DOMI on admission
-Outpatient dose of Jardiance 10 mg daily changed to Farxiga 10 mg daily due to formulary changes at , but will resume Jardiance at d/c.
-TAVR in SAVR with trace aortic regurgitation on echo.
-Patient with at least persistent if not permanent Afib. Device check in the ER showed Afib for the last year and he had previous CV, but unclear if he ever tried AAD. No h/o ablation.
-Outpatient dose of Eliquis 5 mg BID (age 64, wt 95.8 kg, Cre 1.4) was continued, but will hold for RHC in AM
-LDL 50 and patient is not chronically on statin.
HPI: 64-year-old male with history of bioprosthetic AVR at [facility] on 05/27/2012 with LV thrombus detected on SAMARIA prior to surgery and resected during surgery, EF 15 to 20% prior to AVR, improvement in LV function to EF 50 to 55% on echo
12/2020, subsequent valve in valve TAVR August 2024 at [facility], atrial flutter/fibrillation status post multiple cardioversions, now with permanent atrial fibrillation, syncope with bradycardia and heart block status post permanent pacemaker 2021
(Medtronic) at [facility], anemia w/ GI bleed due to ulcerative colitis 2007, Echo at that time of pacemaker in 2021 showed EF 65% with stable bioprosthetic valve mean gradient 12 mmHg. He was previously followed by Dr. Bellamy and was last seen
in May 2022. More recently he has been followed by Dr. Josh Prater at [facility]. Patient reports he has not felt much better since the TAVR in August 2023 with increasing shortness of breath with exertion and lower extremity edema. He has had
a 10 pound weight gain over the past month with doubling of outpatient diuretic to Lasix 80 mg twice daily 3 weeks ago. He was subsequently started on Jardiance. He tells me his annual pacemaker check last week showed permanent atrial
fibrillation. He lives alone and was seen by family members 4 days ago who were concerned about his health and advised him to get medical care. He tells me he had a few things to get taking care of over the past few days but that his brother
dropped him off here at the ED for evaluation today.
Progress Note - Quantitative Equity Head
Subjective
Date of Service: June 25, 2024
He is less SOB, less edema, not at baseline
Objective
Labs:
06/25/24 07:18
06/25/24 07:18
Labs
Hgb 8.8 g/dL (13.0-18.0) L 06/25/24 07:18
Hct 30.7 % (39.0-52.0) L 06/25/24 07:18
Plt Count 183 10^3/uL (130-400) 06/25/24 07:18
PT 19.6 Sec (11.4-14.6) H 06/24/24 11:14
INR 1.63 06/24/24 11:14
Sodium 131 mmol/L (135-145) L 06/25/24 07:18
Potassium 4.1 mmol/L (3.5-5.1) 06/25/24 07:18
BUN 34 mg/dl (9-20) H 06/25/24 07:18
Creatinine 1.4 mg/dL (0.7-1.3) H 06/25/24 07:18
Glucose 78 mg/dl (70-99) 06/25/24 07:18
Troponins
06/24/24
11:14
Troponin I 0.022
Vital Signs and I&O:
Vital Signs
Temp Pulse Resp BP Pulse Ox
97.7 F 62 18 112/69 99
06/25/24 07:30 06/25/24 07:30 06/25/24 07:30 06/25/24 07:30 06/25/24 07:30
Vital Signs
Temp Pulse Resp BP Pulse Ox
97.7 F 62 18 112/69 99
06/25/24 07:30 06/25/24 07:30 06/25/24 07:30 06/25/24 07:30 06/25/24 07:30
Intake & Output
06/23/24 06/24/24 06/25/24 06/26/24
06:59 06:59 06:59 06:59
Intake Total 480 / 480
Balance 480 / 480
Physical Exam
Physical Exam
GEN: NAD. AAOx3
HEENT: MMM
LUNGS: RA. CTA B/L, no audible wheeze
CV: V paced on tele. Reg, systolic murmur
ABD: mildly distended
EXT: Trace to +1 B/L LE edema
NEURO: Gross non-focal
SKIN: No rash
[2024-06-25] MEDS: FARXIGA 10 MG PO (10:16)
[2024-06-25] MEDS: ELIQUIS 5 MG PO (10:17)
[2024-06-25] MEDS: LOPRESSOR 50 MG PO ×2 (10:17→19:56)
[2024-06-25] MEDS: KCL 20 MEQ PO ×2 (10:18→19:58)
[2024-06-25] MEDS: THERAGRAN 1 TABLET PO (10:18)
[2024-06-25] MEDS: LASIX 40 MG IV ×2 (10:18→16:57)
--- NOTE | 2024-06-25 10:30 | W.PN.HOSP.TC ---
Addendum entered and electronically signed by Clark Schulte DO 06/25/24 12:41:
CDI: History of chronic HFpEF, echo here with RV failure and new mild reduction of LVEF
Original Note:
Today's Communication/Plan
-
* IV diuresis.
* I&Os, daily weights.
* Oral iron.
Assessment / Plan
Assessment / Plan
Assessment
Mario Kelly, 64-year-old male with a complicated cardiac history, has had worsening dyspnea on exertion, progressive weight gain which has been refractory to increased furosemide dosing and fatigue over the past couple of months. He has a history of
dilated aortic root for which he underwent open heart replacement in 2012; this failed and required a TAVR in 2023. He also has a history of atrial fibrillation, and has a pacemaker. Also started on empagliflozin a month or so ago. His furosemide
was increased from 40 mg BID to 80 mg BID a month ago for weight gain, but that did not help. He does not check his weights at home but reports worsening LE edema. Also reports that furosemide has not been making him urinate as much as he used to;
took 80 PO before coming to the ED this morning, and to go to the bathroom only once.
Impression and plan
Acute on (known) chronic heart failure with preserved ejection fraction
Mildly reduced ejection fraction on echo this admission
- Hypervolemia on exam; pro-BNP 2160, CXR with pulmonary edema and severe cardiomegaly.
- IV furosemide 40 mg BID.
- Follow I&O and daily weight.
- 2 gram sodium diet.
- Continue SGLT2 and metoprolol.
- Echocardiogram with mildly reduced EF at 45-50%.
- Cardiology following.
Severe tricuspid regurgitation
Right pressure/ventricular volume overload likely secondary to above
- Per echocardiogram.
- Cardiology following.
Aortic valvular disease
History of aortic root dilation
Status-post SAVR 2012
Status-post [id number] 2024
- Echocardiogram with stable findings.
- Follows cardiology team at [facility].
Permanent atrial fibrillation
Sinus bradycardia
Status-post pacemaker placement
- Continue metoprolol and apixaban.
- Follow on telemetry.
Hypokalemia
- Continue potassium supplementation.
- Follow CMP and Mg; replete as needed.
Hyponatremia
- Mild, and likely hypervolumic.
- Follow CMP.
Elevated creatinine, improving
- Baseline unclear, although he denies CKD.
- If this is an DOMI, likely cardiorenal and should respond to diuresis.
- Follow CMP.
Iron deficiency anemia
- Of unclear etiology; possibly in setting of UC
- Oral iron daily this admission, then -- after discharge.
Hyperbilirubinemia
Elevated alkaline phosphatase
- Of unclear etiology.
- Follow CMP.
Primary hypertension
- Normotensive and stable.
- Continue metoprolol and diuresis.
Hyperlipidemia
- Check lipids.
- Previously on statin for a couple of days and did not like how he felt.
Ulcerative colitis
- Stable and not in a flare.
- Continue mesalamine.
Chronic back pain
- Continue acetaminophen as needed.
Thromboprophylaxis
- Apixaban.
Code status
- Full.
Anticipated Discharge: 24 - 48 hours
Subjective/Interval History
-
Date of Service: June 25, 2024
Stable overnight and urinating more.
Objective Data
-
Labs:
Laboratory Results
06/25/24
07:18
WBC 4.9
Hgb 8.8 L
Hct 30.7 L
Plt Count 183
Sodium 131 L
Potassium 4.1
Chloride 99
Carbon Dioxide 23
BUN 34 H
Creatinine 1.4 H
Glucose 78
Calcium 8.7
Total Bilirubin 1.6 H
AST 41
ALT 32
Alkaline Phosphatase 177 H
Vital Signs:
Vital Signs
Temp Pulse Resp BP Pulse Ox
97.7 F 62 18 112/69 99
06/25/24 07:30 06/25/24 10:17 06/25/24 07:30 06/25/24 10:17 06/25/24 07:30
I&O
06/24/24 06/25/24 06/26/24
06:59 06:59 06:59
Intake Total 480 / 480
Balance 480 / 480
Review of Systems
-
History Source: Patient
Constitutional: Reports No Symptoms
EENT: Reports No Symptoms Reported
Respiratory: Reports No Symptoms
Cardiac: Reports No Symptoms
Abdomen/GI: Reports No Symptoms
Genitourinary: Reports No Symptoms
Musculoskeletal: Reports No Symptoms
Skin: Reports No Symptoms
Neuro: Reports No Symptoms
Endocrine: Reports No Symptoms
Hematologic / Lymphatic: Reports No Symptoms
Allergy / Immunology: Reports No Symptoms
Physical Exam
-
General: No Apparent Distress and Comfortable
HEENT: Normocephalic, Atraumatic, Moist Mucous Membranes and No Ptosis
Respiratory: Clear to Auscultation and Non Labored Respirations
Cardiac: Regular Rhythm and S1/S2
GI: Soft, Nontender, Nondistended and No Hepatosplenomegaly
Genito-urinary: No Costovertebral Tender
Musculoskeletal: No Clubbing, No Cyanosis, Edema, Right Lower Extrem (2+) and Edema, Left Lower Extrem (2+)
Skin: Warm, Dry and IV Access / Catheter Site
Neuro: Awake, Alert, Oriented, No Motor Deficits and No Sensory Deficits
Hematologic / Lymphatic: No Lymphadenopathy
Psych: Calm
--- NOTE | 2024-06-25 11:11 | PN.CDI ---
CDI
- -
CDI:
Physician Documentation Request
Admit Date: 06/24/24 14:06
Dear Doctor Traci,
Patient is admitted for the management of heart failure.
Cardiology consultation refers to the heart failure as ' Acute on chronic heart failure with mildly reduced EF'
Hospitalist progress note as 'Acute on chronic heart failure with preserved ejection fraction'
06/24 Echo EF 45-50%
In an attempt to clarify potentially conflicting documentation, please clarify the type of CHF you are evaluating, treating or monitoring.
Type
Systolic
Diastolic
Combined Systolic/Diastolic
Other
Use of terms such as suspected, likely, concern for, or probable (associated with a specific diagnosis that is being evaluated, monitored, or treated as if it exists) are acceptable and can be coded in the inpatient setting, when documented at the
time of discharge.
Thank you,
Gege Zimmerman RN, BSN
CDI Specialist
tiger text
Please use your independent medical judgment in providing your response.
[2024-06-25 11:12] VITALS: BP 129/77
--- NOTE | 2024-06-25 12:57 | W.CARD.DEVCH ---
Cardiac Device Check
-
Device: Pacemaker
Racing Secretary And Handicapper: Medtronic
The patient's device was interrogated with assistance of the device signs sales representative followed by a complete physician review. The device had normal function. No abnormalities seen.
Remote interrogation in ED shows permanent atrial fibrillation for at least the past year, V paced 96%, 10 years on battery
[2024-06-25 15:10] VITALS: BP 109/70
[2024-06-25] MEDS: FERRLECIT 110 MG IV (15:12)
--- NOTE | 2024-06-25 16:16 | CM ---
Patient seen bedside, initial assessment completed. Admitted for shortness of breath; weight gain; fatigue.
Patient reports that he lives alone in single story home- 1 step to enter from front and through the garage. Patient is independent w/ ambulating, no device required. Patient has a shower chair and grab bars in the bathroom. No SNF/VN/PT hx. No
current home or OP services at this time.
Address, points of contact and insurance verified
PCP: Mario Starkey
Pharmacy: [facility]
Plan: Anticipate home; no needs
[2024-06-25 19:22] VITALS: BP 110/68
[2024-06-25 23:23] VITALS: BP 121/70
[2024-06-26] VITALS (14 sets, daily range): BP systolic 102–124; BP diastolic 57–75; BMI 28.3
--- NOTE | 2024-06-26 08:35 | ITS.CL.CATH ---
Casket Inspector - Catheterization
Cardiac Catheterization
Procedure Report:
RIGHT HEART CATHETERIZATION
Date of Procedure: June 26, 2024
Referring: Dr. Abner Bellamy
INDICATION: Shortness of breath and renal insufficiency with severe tricuspid regurgitation
Hemodynamics (mmHg):
RA (m) : 23
RV (s/d,m) : 58/13, 17
PA (s/d, m) : 55/20, 33
PCWP (m) : 22
Noninvasive BP: 116/68, 88
Cardiac Output: 4.9 L/min and Cardiac Index : 2.2 L/min/m-2
Systemic vascular resistance: 13.2 Wood units or 1061 [id number](-5)
Pulmonary vascular resistance: 2.2 Wood units or 180 [id number](-5)
RADIATION SUMMARY: Fluoro Time (min): 1.5, Dose (mGy): 23, DAP (Gy.cm2) : 4.1
CONCLUSION:
1. Modestly elevated right and left ventricular filling pressures
Copy to: Dr. Abner Bellamy
[2024-06-26 08:54] LABS: Hematocrit 29.7 % (39.0-52.0); Hemoglobin 8.3 g/dL (13.0-18.0); Mean Corp Hgb Conc. 27.9 g/dL (33.0-37.0); Mean Corpuscular Hgb 19.6 pg (27.0-31.0); Platelet Count 184 10^3/uL (130-400); Red Blood Cell Count 4.24 10^6/uL (4.70-6.10); Red Cell Dist. Width 21.4 % (11.5-14.5); White Blood Cell Count 5.1 10^3/uL (4.8-10.8)
[2024-06-26 09:14] LABS: Blood Urea Nitrogen 30 mg/dl (9-20); Calcium 8.8 mg/dl (8.4-10.2); Carbon Dioxide 27 mmol/L (22-30); Chloride 101 mmol/L (98-107); Estimated Creatinine Clearance 63 ml/min; Glucose 90 mg/dl (70-99); Sodium 135 mmol/L (135-145); eGFR > 60.00
--- NOTE | 2024-06-26 10:13 | PTCARENOTE ---
Received report from Helen in manager lab. Pt arrived back to rm [id number] at 0830. Pt AAOX3, denying any pain or SOB. Remains V-paced on telemetry. Right femoral site CDI, positive pulse, no noted hematoma, right leg pink, warm, site checks protocol
initiated. Instructed pt on bedrest order x 2 hrs- pt verbalized understanding. Call anguiano within reach, will monitor closely.
--- NOTE | 2024-06-26 10:27 | W.PN.HOSP.TC ---
Today's Communication/Plan
-
* IV diuresis.
* I&Os, daily weights.
* IV iron.
* Cath today.
Assessment / Plan
Assessment / Plan
Assessment
Mario Kelly, 64-year-old male with a complicated cardiac history, has had worsening dyspnea on exertion, progressive weight gain which has been refractory to increased furosemide dosing and fatigue over the past couple of months. He has a history of
dilated aortic root for which he underwent open heart replacement in 2012; this failed and required a TAVR in 2023. He also has a history of atrial fibrillation, and has a pacemaker. Also started on empagliflozin a month or so ago. His furosemide
was increased from 40 mg BID to 80 mg BID a month ago for weight gain, but that did not help. He does not check his weights at home but reports worsening LE edema. Also reports that furosemide has not been making him urinate as much as he used to;
took 80 PO before coming to the ED this morning, and to go to the bathroom only once.
Impression and plan
Acute on (known) chronic heart failure with preserved ejection fraction
Mildly reduced ejection fraction on echo this admission
- Hypervolemia on exam; pro-BNP 2160, CXR with pulmonary edema and severe cardiomegaly.
- IV furosemide 40 mg BID.
- Follow I&O and daily weight.
- 2 gram sodium diet.
- Continue SGLT2 and metoprolol.
- Echocardiogram with mildly reduced EF at 45-50%.
- Cardiology following.
Severe tricuspid regurgitation
Right pressure/ventricular volume overload likely secondary to above
- Per echocardiogram.
- Cardiology following.
Aortic valvular disease
History of aortic root dilation
Status-post SAVR 2012
Status-post [id number] 2023
- Echocardiogram with stable findings.
- Follows cardiology team at [facility].
Permanent atrial fibrillation
Sinus bradycardia
Status-post pacemaker placement
- Continue metoprolol and apixaban.
- Follow on telemetry.
Hypokalemia
- Continue potassium supplementation.
- Follow CMP and Mg; replete as needed.
Hyponatremia
- Mild, and likely hypervolumic.
- Follow CMP.
Elevated creatinine, improving
- Baseline unclear, although he denies CKD.
- If this is an DOMI, likely cardiorenal and should respond to diuresis.
- Follow CMP.
Iron deficiency anemia
- Of unclear etiology; possibly in setting of UC
- Oral iron daily this admission, then -W- after discharge.
Hyperbilirubinemia
Elevated alkaline phosphatase
- Of unclear etiology.
- Follow CMP.
Primary hypertension
- Normotensive and stable.
- Continue metoprolol and diuresis.
Hyperlipidemia
- Check lipids.
- Previously on statin for a couple of days and did not like how he felt.
Ulcerative colitis
- Stable and not in a flare.
- Continue mesalamine.
Chronic back pain
- Continue acetaminophen as needed.
Thromboprophylaxis
- Apixaban.
Code status
- Full.
Anticipated Discharge: 24 - 48 hours
Subjective/Interval History
-
Date of Service: June 26, 2024
Doing well and stable.
Objective Data
-
Labs:
Laboratory Results
06/26/24
08:37
WBC 5.1
Hgb 8.3 L
Hct 29.7 L
Plt Count 184
Sodium 135
Potassium 4.0
Chloride 101
Carbon Dioxide 27
BUN 30 H
Creatinine 1.3
Glucose 90
Calcium 8.8
Vital Signs:
Vital Signs
Temp Pulse Resp BP Pulse Ox
97.9 F 63 18 123/64 96
06/26/24 09:30 06/26/24 09:30 06/26/24 09:30 06/26/24 09:30 06/26/24 09:30
I&O
06/25/24 06/26/24 06/27/24
06:59 06:59 06:59
Intake Total 480 / 480 1080 / 1080
Output Total 1900 / 1900
Balance 480 / 480 -820 / -820
Review of Systems
-
History Source: Patient
Constitutional: Reports No Symptoms
EENT: Reports No Symptoms Reported
Respiratory: Reports No Symptoms
Cardiac: Reports No Symptoms
Abdomen/GI: Reports No Symptoms
Genitourinary: Reports No Symptoms
Musculoskeletal: Reports No Symptoms
Skin: Reports No Symptoms
Neuro: Reports No Symptoms
Endocrine: Reports No Symptoms
Hematologic / Lymphatic: Reports No Symptoms
Allergy / Immunology: Reports No Symptoms
Physical Exam
-
General: No Apparent Distress and Comfortable
HEENT: Normocephalic, Atraumatic, Moist Mucous Membranes and No Ptosis
Respiratory: Clear to Auscultation and Non Labored Respirations
Cardiac: Regular Rhythm and S1/S2
GI: Soft, Nontender, Nondistended and No Hepatosplenomegaly
Genito-urinary: No Costovertebral Tender
Musculoskeletal: No Clubbing, No Cyanosis, Edema, Right Lower Extrem (2+) and Edema, Left Lower Extrem (2+)
Skin: Warm, Dry and IV Access / Catheter Site
Neuro: Awake, Alert, Oriented, No Motor Deficits and No Sensory Deficits
Hematologic / Lymphatic: No Lymphadenopathy
Psych: Calm
[2024-06-26] MEDS: FARXIGA 10 MG PO (10:40)
[2024-06-26] MEDS: KCL 20 MEQ PO ×2 (10:40→20:22)
[2024-06-26] MEDS: THERAGRAN 1 TABLET PO (10:40)
[2024-06-26] MEDS: LOPRESSOR 50 MG PO ×2 (10:40→20:22)
[2024-06-26] MEDS: LASIX 40 MG IV ×2 (10:40→16:38)
[2024-06-26] MEDS: FLUSH (NSS) 1 FLUSH IV (10:41)
[2024-06-26] MEDS: FERRLECIT 110 MG IV (15:31)
--- NOTE | 2024-06-26 15:33 | PTCARENOTE ---
Admin IV Iron for PATEL Ariza. Pt has IV in right AC, started infusion without incident.
[2024-06-27 03:54] VITALS: BP 111/66
[2024-06-27 06:00] VITALS: BMI 27.6
[2024-06-27 07:00] VITALS: BP 112/71
[2024-06-27 07:23] LABS: Hematocrit 29.7 % (39.0-52.0); Hemoglobin 8.5 g/dL (13.0-18.0); Mean Corp Hgb Conc. 28.6 g/dL (33.0-37.0); Mean Corpuscular Hgb 19.9 pg (27.0-31.0); Mean Corpuscular Volume 69.6 fL (80.0-94.0); Mean Platelet Volume 9.6 fL (7.4-10.4); Platelet Count 213 10^3/uL (130-400); Red Blood Cell Count 4.27 10^6/uL (4.70-6.10); Red Cell Dist. Width 21.5 % (11.5-14.5); White Blood Cell Count 5.6 10^3/uL (4.8-10.8)
[2024-06-27 08:33] LABS: Blood Urea Nitrogen 28 mg/dl (9-20); Calcium 8.7 mg/dl (8.4-10.2); Carbon Dioxide 26 mmol/L (22-30); Chloride 100 mmol/L (98-107); Estimated Creatinine Clearance 63 ml/min; Glucose 84 mg/dl (70-99); Potassium 4.6 mmol/L (3.5-5.1); Sodium 133 mmol/L (135-145); eGFR > 60.00
[2024-06-27] MEDS: KCL 20 MEQ PO ×2 (09:15→20:03)
[2024-06-27] MEDS: THERAGRAN 1 TABLET PO (09:15)
[2024-06-27] MEDS: LOPRESSOR 50 MG PO ×2 (09:15→20:03)
[2024-06-27] MEDS: FARXIGA 10 MG PO (09:16)
[2024-06-27] MEDS: LASIX 40 MG IV ×2 (09:16→15:39)
--- NOTE | 2024-06-27 10:25 | W.PN.HOSP.TC ---
Today's Communication/Plan
-
* Resume apixaban.
* IV diuresis.
* I&Os, daily weights.
* IV iron.
Assessment / Plan
Assessment / Plan
Assessment
Mario Kelly, 64-year-old male with a complicated cardiac history, has had worsening dyspnea on exertion, progressive weight gain which has been refractory to increased furosemide dosing and fatigue over the past couple of months. He has a history of
dilated aortic root for which he underwent open heart replacement in 2012; this failed and required a TAVR in 2023. He also has a history of atrial fibrillation, and has a pacemaker. Also started on empagliflozin a month or so ago. His furosemide
was increased from 40 mg BID to 80 mg BID a month ago for weight gain, but that did not help. He does not check his weights at home but reports worsening LE edema. Also reports that furosemide has not been making him urinate as much as he used to;
took 80 PO before coming to the ED this morning, and to go to the bathroom only once.
Impression and plan
Acute on (known) chronic heart failure with preserved ejection fraction
Mildly reduced ejection fraction on echo this admission
- Hypervolemia on exam; pro-BNP 2160, CXR with pulmonary edema and severe cardiomegaly.
- IV furosemide 40 mg BID.
- Follow I&O and daily weight.
- 2 gram sodium diet.
- Continue SGLT2 and metoprolol.
- Echocardiogram with mildly reduced EF at 45-50%.
- Need to establish his dry weight (patient does not know).
- Cardiology following.
Severe tricuspid regurgitation
Right pressure/ventricular volume overload likely secondary to above
- Per echocardiogram.
- Needs to be addressed, possibly as outpatient after discharge.
- Cardiology following.
Aortic valvular disease
History of aortic root dilation
Status-post SAVR 2012
Status-post [id number] 2023
- Echocardiogram with stable findings.
- Follows cardiology team at [facility].
Permanent atrial fibrillation
Sinus bradycardia
Status-post pacemaker placement
- Continue metoprolol and apixaban.
- Follow on telemetry.
Hypokalemia
- Continue potassium supplementation.
- Follow CMP and Mg; replete as needed.
Hyponatremia
- Mild, and likely hypervolumic.
- Follow CMP.
Elevated creatinine, improving
- Baseline unclear, although he denies CKD.
- If this is an DOMI, likely cardiorenal and should respond to diuresis.
- Follow CMP.
Iron deficiency anemia
- Of unclear etiology; possibly in setting of UC
- IV iron daily this admission, then oral M-- after discharge.
Hyperbilirubinemia
Elevated alkaline phosphatase
- Of unclear etiology.
- Follow CMP.
Primary hypertension
- Normotensive and stable.
- Continue metoprolol and diuresis.
Hyperlipidemia
- Check lipids.
- Previously on statin for a couple of days and did not like how he felt.
Ulcerative colitis
- Stable and not in a flare.
- Continue mesalamine.
Chronic back pain
- Continue acetaminophen as needed.
Thromboprophylaxis
- Apixaban.
Code status
- Full.
Anticipated Discharge: 24 - 48 hours
Subjective/Interval History
-
Date of Service: June 27, 2024
Legs much less swollen and no longer painful.
Objective Data
-
Labs:
Laboratory Results
06/27/24
06:58
WBC 5.6
Hgb 8.5 L
Hct 29.7 L
Plt Count 213
Sodium 133 L
Potassium 4.6
Chloride 100
Carbon Dioxide 26
BUN 28 H
Creatinine 1.3
Glucose 84
Calcium 8.7
Vital Signs:
Vital Signs
Temp Pulse Resp BP Pulse Ox
97.4 F 69 14 112/71 93
06/27/24 07:00 06/27/24 07:00 06/27/24 07:00 06/27/24 09:15 06/27/24 07:00
I&O
06/26/24 06/27/24 06/28/24
06:59 06:59 06:59
Intake Total 1080 / 1080 1810 / 1810
Output Total 1900 / 1900 3375 / 3375
Balance -820 / -820 -1565 / -1565
Review of Systems
-
History Source: Patient
Constitutional: Reports No Symptoms
EENT: Reports No Symptoms Reported
Respiratory: Reports No Symptoms
Cardiac: Reports No Symptoms
Abdomen/GI: Reports No Symptoms
Genitourinary: Reports No Symptoms
Musculoskeletal: Reports No Symptoms
Skin: Reports No Symptoms
Neuro: Reports No Symptoms
Endocrine: Reports No Symptoms
Hematologic / Lymphatic: Reports No Symptoms
Allergy / Immunology: Reports No Symptoms
Physical Exam
-
General: No Apparent Distress and Comfortable
HEENT: Normocephalic, Atraumatic, Moist Mucous Membranes and No Ptosis
Respiratory: Clear to Auscultation and Non Labored Respirations
Cardiac: Regular Rhythm and S1/S2
GI: Soft, Nontender, Nondistended and No Hepatosplenomegaly
Genito-urinary: No Costovertebral Tender
Musculoskeletal: No Clubbing, No Cyanosis, Edema, Right Lower Extrem (2+) and Edema, Left Lower Extrem (2+)
Skin: Warm, Dry and IV Access / Catheter Site
Neuro: Awake, Alert, Oriented, No Motor Deficits and No Sensory Deficits
Hematologic / Lymphatic: No Lymphadenopathy
Psych: Calm
[2024-06-27 11:00] VITALS: BP 108/68
--- NOTE | 2024-06-27 11:42 | W.PN.CARDCBS ---
Addendum entered and electronically signed by Cristino Bellamy MD 06/27/24 16:26:
I saw and examined the patient.
The Stadium Manager's note was reviewed and I agree with the note.
Comment:
GEN: No distress, awake, Ox3
HEENT: supple, anicteric, mmm
LUNGS: CTA, no wheezes/rales
CV: Irreg, S1/S2, 1/6 syst LSB, no gallop
ABD: soft, BS+, NT/mild distended
EXT: No edema
NEURO: Gross non-focal
SKIN: No rash
Plan:
He continues to diurese and weight down to 203 pounds. Right heart cath results reviewed. Would continue to attempt to diurese another 5 to 10 pounds if possible.
Creatinine overall stable at 1.3. He does have some mild hyponatremia.
Continue rate control strategy for A-fib. Continue metoprolol and Eliquis.
Continue Farxiga.
I suspect the main etiology for his heart failure symptoms is a severe tricuspid regurgitation. This may be pacemaker mediated.
Original Note:
Today's Communication / Plan
-
-cont IV diuresis
Impression / Plan
-
PCP: Dr. Merchant
Primary caterer helper: previously Dr. Bellamy, currently Dr. Josh Prater at [facility]
Impression:
Admitted with SOB and edema 06/24/24
Acute HFmrEF
CM EF 45-50% by echo 06/24/24
Aortic valve disease status
s/p bioprosthetic AVR #27 Berry-Carcamo at 2012
then s/p valve in valve TAVR at [facility] 08/2023
Permanent Afib
Atrial fibrillation, permanent
Chronic Eliquis OAC
s/p Medtronic PPM
Nonobstructive CAD per cath 05/2012
Cardiomyopathy
SAMARIA 07/2012: EF 45%
Echo 01/2017, EF 50 to 55%, stable AVR, mean gradient 11
Echo 01/2019: EF 50-55%, stable AVR, mean gradient 6, PAP 34-39
Echo 12/17/20: EF 50 to 55%, mod LVH, mildly dilated RV with normal systolic function, severe LAE, well-seated bioprosthetic AV peak/mean 15/9 mmHg, mild to mod TR, PAP 43 to 48 mmHg, prox ascending aorta 4.5 cm
Echo 06/24/24: EF 45-50%, septal hypokinesis/contraction abnormality with severe inferoapical hypokinesis, mild MR, TAVR in SAVR peak/mean 12/6 mmHg with trace aortic regurgitation that could be underestimated due to acoustic shadowing, severely
dilated and hypokinetic RV with pacing wires identified and evidence of severe TR with marked RA dilatation
RHC 06/24/2024: RA 23, PA 55/20, PCWP 22, CO 4.9, CI 2.2
Plan:
-RHC 06/24/2024 with elevated filling pressures
-Cont Lasix 40 mg IV BID. Patient was taking Lasix 80 mg PO BID prior to admission.
-Weight is down 5 lbs overnight to 203 lbs, wt down 13 lbs since admit. Patient reports a previous dry weight of 206 lbs and at one point as low as 198 lbs.
-DOMI with Cre up to 1.7 on admission. Improved to 1.3 on 06/27/2024
-Echo noted above, EF 45-50% with sev TR. Patient reports similar TR, seemed to be new after PPM and there was a thought by her team at [facility] that the TR would improve with AVR, but it never did.
-beta alma changed from Metoprolol tartrate to Coreg due to LV dysfxn, on Coreg 6.25 mg bid
-Will hold off on adding JOEY/ARB/ARNI/aldosterone antagonist due to DOMI on admission
-Outpatient dose of Jardiance 10 mg daily changed to Farxiga 10 mg daily due to formulary changes at , but will resume Jardiance at d/c.
-TAVR in SAVR with trace aortic regurgitation on echo.
-Patient with at least persistent if not permanent Afib. Device check in the ER showed Afib for the last year and he had previous CV, but unclear if he ever tried AAD. No h/o ablation.
-Outpatient dose of Eliquis 5 mg BID (age 64, wt 95.8 kg, Cre 1.4)
-LDL 50 and patient is not chronically on statin.
HPI: 64-year-old male with history of bioprosthetic AVR at [facility] on 05/27/2012 with LV thrombus detected on SAMARIA prior to surgery and resected during surgery, EF 15 to 20% prior to AVR, improvement in LV function to EF 50 to 55% on echo
12/2020, subsequent valve in valve TAVR August 2024 at [facility], atrial flutter/fibrillation status post multiple cardioversions, now with permanent atrial fibrillation, syncope with bradycardia and heart block status post permanent pacemaker 2021
(Medtronic) at [facility], anemia w/ GI bleed due to ulcerative colitis 2007, Echo at that time of pacemaker in 2021 showed EF 65% with stable bioprosthetic valve mean gradient 12 mmHg. He was previously followed by Dr. Bellamy and was last seen
in May 2022. More recently he has been followed by Dr. Josh Prater at [facility]. Patient reports he has not felt much better since the TAVR in August 2023 with increasing shortness of breath with exertion and lower extremity edema. He has had
a 10 pound weight gain over the past month with doubling of outpatient diuretic to Lasix 80 mg twice daily 3 weeks ago. He was subsequently started on Jardiance. He tells me his annual pacemaker check last week showed permanent atrial
fibrillation. He lives alone and was seen by family members 4 days ago who were concerned about his health and advised him to get medical care. He tells me he had a few things to get taking care of over the past few days but that his brother
dropped him off here at the ED for evaluation today.
Progress Note - Dye Boarding Machine Operator
Subjective
Date of Service: June 27, 2024
LE edema and FERGUSON improved
elevated R&L heart filling pressures on RHC 06/26/2024
Objective
Labs:
06/27/24 06:58
06/27/24 06:58
Labs
Hgb 8.5 g/dL (13.0-18.0) L 06/27/24 06:58
Hct 29.7 % (39.0-52.0) L 06/27/24 06:58
Plt Count 213 10^3/uL (130-400) 06/27/24 06:58
PT 19.6 Sec (11.4-14.6) H 06/24/24 11:14
INR 1.63 06/24/24 11:14
Sodium 133 mmol/L (135-145) L 06/27/24 06:58
Potassium 4.6 mmol/L (3.5-5.1) 06/27/24 06:58
BUN 28 mg/dl (9-20) H 06/27/24 06:58
Creatinine 1.3 mg/dL (0.7-1.3) 06/27/24 06:58
Glucose 84 mg/dl (70-99) 06/27/24 06:58
Troponins
06/24/24
11:14
Troponin I 0.022
Vital Signs and I&O:
Vital Signs
Temp Pulse Resp BP Pulse Ox
98.1 F 67 18 108/68 97
06/27/24 11:00 06/27/24 11:00 06/27/24 11:00 06/27/24 11:00 06/27/24 11:00
Vital Signs
Temp Pulse Resp BP Pulse Ox
98.1 F 67 18 108/68 97
06/27/24 11:00 06/27/24 11:00 06/27/24 11:00 06/27/24 11:00 06/27/24 11:00
Intake & Output
06/25/24 06/26/24 06/27/24 06/28/24
06:59 06:59 06:59 06:59
Intake Total 480 / 480 1080 / 1080 1810 / 1810
Output Total 1900 / 1900 3375 / 3375
Balance 480 / 480 -820 / -820 -1565 / -1565
Physical Exam
Physical Exam
GEN: No distress, awake, Ox3
HEENT: supple, anicteric, mmm
LUNGS: ralesB/L bases
CV: Reg, S1/S2, 2/6 syst LLSB and apex
ABD: soft, BS+, NT/ND
EXT: tr LE edema
NEURO: Gross non-focal
SKIN: No rash
--- NOTE | 2024-06-27 13:20 | CM ---
Chart reviewed. Care ongoing at this time.
Plan is for patient to d/c home, no needs
[2024-06-27 15:00] VITALS: BP 110/69
[2024-06-27] MEDS: FERRLECIT 110 MG IV (15:39)
[2024-06-27 19:32] VITALS: BP 93/54
[2024-06-27] MEDS: ELIQUIS 5 MG PO (20:03)
[2024-06-27 23:29] VITALS: BP 108/64
[2024-06-28] VITALS (7 sets, daily range): BP systolic 93–114; BP diastolic 55–70; BMI 27.6
[2024-06-28] MEDS: ANESTHETIC LOZENGE 1 LOZENGE PO (00:03)
[2024-06-28] MEDS: ROBITUSSIN 100 MG PO (00:03)
[2024-06-28 08:04] LABS: Blood Urea Nitrogen 25 mg/dl (9-20); Calcium 8.6 mg/dl (8.4-10.2); Carbon Dioxide 28 mmol/L (22-30); Chloride 99 mmol/L (98-107); Estimated Creatinine Clearance 63 ml/min; Glucose 80 mg/dl (70-99); Potassium 4.2 mmol/L (3.5-5.1); Sodium 133 mmol/L (135-145); eGFR > 60.00
--- NOTE | 2024-06-28 08:39 | W.PN.CARDCBS ---
Today's Communication / Plan
-
He continues to diurese and weight down almost another lb, remains 203 pounds. Right heart cath results with PCWP 22.
-Would continue to attempt to diurese another 5 to 10 pounds if possible.
-His HF symptoms appear related to severe TR, may be pacemaker mediated.
-Patient reports similar TR, seemed to be new after PPM, felt by team at [facility] that the TR would improve with AVR, but it never did.
-Cont Lasix 40 mg IV BID. Patient was taking Lasix 80 mg PO BID prior to admission.
-Wt down 13 lbs since admit. Patient reports a previous dry weight of 206 lbs and at one point as low as 198 lbs.
Creatinine remains stable at 1.3. Remains mildly hyponatremic.
Continue rate control strategy for A-fib.
-Continue metoprolol and Eliquis.
Impression / Plan
-
.
PCP: Dr. Merchant
Primary ore crusher: previously Dr. Bellamy, currently Dr. Josh Prater at [facility]
Impression:
Admitted with SOB and edema 06/24/24
Acute HFmrEF
CM EF 45-50% by echo 06/24/24
Aortic valve disease status
s/p bioprosthetic AVR #27 Berry-Carcamo at [facility] 2012
then s/p valve in valve TAVR at [facility] 08/2023
Permanent Afib
Atrial fibrillation, permanent
Chronic Eliquis OAC
s/p Medtronic PPM
Nonobstructive CAD per cath 05/2012
Cardiomyopathy
SAMARIA 07/2012: EF 45%
Echo 01/2017, EF 50 to 55%, stable AVR, mean gradient 11
Echo 01/2019: EF 50-55%, stable AVR, mean gradient 6, PAP 34-39
Echo 12/17/20: EF 50 to 55%, mod LVH, mildly dilated RV with normal systolic function, severe LAE, well-seated bioprosthetic AV peak/mean 15/9 mmHg, mild to mod TR, PAP 43 to 48 mmHg, prox ascending aorta 4.5 cm
Echo 06/24/24: EF 45-50%, septal hypokinesis/contraction abnormality with severe inferoapical hypokinesis, mild MR, TAVR in SAVR peak/mean 12/6 mmHg with trace aortic regurgitation that could be underestimated due to acoustic shadowing, severely
dilated and hypokinetic RV with pacing wires identified and evidence of severe TR with marked RA dilatation
RHC 06/24/2024: RA 23, PA 55/20, PCWP 22, CO 4.9, CI 2.2
-LDL 50 and patient is not chronically on statin.
Plan:
He continues to diurese and weight down almost another lb, remains 203 pounds. Right heart cath results with PCWP 22.
-Would continue to attempt to diurese another 5 to 10 pounds if possible.
-His HF symptoms appear related to severe TR, may be pacemaker mediated.
-Patient reports similar TR, seemed to be new after PPM, felt by team at [facility] that the TR would improve with AVR, but it never did.
-Cont Lasix 40 mg IV BID. Patient was taking Lasix 80 mg PO BID prior to admission.
-Wt down 13 lbs since admit. Patient reports a previous dry weight of 206 lbs and at one point as low as 198 lbs.
Creatinine remains stable at 1.3. Remains mildly hyponatremic.
Continue rate control strategy for A-fib.
-Continue metoprolol and Eliquis.
Continue Farxiga. Outpatient dose of Jardiance 10 mg daily changed to Farxiga 10 mg daily due to formulary changes at , but will resume Jardiance at d/c.
HPI: 64-year-old male with history of bioprosthetic AVR at [facility] on 05/27/2012 with LV thrombus detected on SAMARIA prior to surgery and resected during surgery, EF 15 to 20% prior to AVR, improvement in LV function to EF 50 to 55% on echo
12/2020, subsequent valve in valve TAVR August 2024 at [facility], atrial flutter/fibrillation status post multiple cardioversions, now with permanent atrial fibrillation, syncope with bradycardia and heart block status post permanent pacemaker 2021
(Medtronic) at [facility], anemia w/ GI bleed due to ulcerative colitis 2007, Echo at that time of pacemaker in 2021 showed EF 65% with stable bioprosthetic valve mean gradient 12 mmHg. He was previously followed by Dr. Bellamy and was last seen
in May 2022. More recently he has been followed by Dr. Josh Prater at [facility]. Patient reports he has not felt much better since the TAVR in August 2023 with increasing shortness of breath with exertion and lower extremity edema. He has had
a 10 pound weight gain over the past month with doubling of outpatient diuretic to Lasix 80 mg twice daily 3 weeks ago. He was subsequently started on Jardiance. He tells me his annual pacemaker check last week showed permanent atrial
fibrillation. He lives alone and was seen by family members 4 days ago who were concerned about his health and advised him to get medical care. He tells me he had a few things to get taking care of over the past few days but that his brother
dropped him off here at the ED for evaluation today.
Progress Note - Supervisor Speech
Subjective
Date of Service: June 28, 2024
Pt seen and examined. Breathing better. No cp.
Objective
Labs:
06/27/24 06:58
06/28/24 06:30
Labs
Hgb 8.5 g/dL (13.0-18.0) L 06/27/24 06:58
Hct 29.7 % (39.0-52.0) L 06/27/24 06:58
Plt Count 213 10^3/uL (130-400) 06/27/24 06:58
PT 19.6 Sec (11.4-14.6) H 06/24/24 11:14
INR 1.63 06/24/24 11:14
Sodium 133 mmol/L (135-145) L 06/28/24 06:30
Potassium 4.2 mmol/L (3.5-5.1) 06/28/24 06:30
BUN 25 mg/dl (9-20) H 06/28/24 06:30
Creatinine 1.3 mg/dL (0.7-1.3) 06/28/24 06:30
Glucose 80 mg/dl (70-99) 06/28/24 06:30
Vital Signs and I&O:
Vital Signs
Temp Pulse Resp BP Pulse Ox
97.5 F 67 13 114/70 96
06/28/24 07:00 06/28/24 07:00 06/28/24 07:00 06/28/24 07:00 06/28/24 07:00
Vital Signs
Temp Pulse Resp BP Pulse Ox
97.5 F 67 13 114/70 96
06/28/24 07:00 06/28/24 07:00 06/28/24 07:00 06/28/24 07:00 06/28/24 07:00
Intake & Output
06/26/24 06/27/24 06/28/24 06/29/24
06:59 06:59 06:59 06:59
Intake Total 1080 / 1080 1810 / 1810 1440 / 1440
Output Total 1900 / 1900 3375 / 3375 2255 / 2255
Balance -820 / -820 -1565 / -1565 -815 / -815
Physical Exam
Physical Exam
General: No acute distress, AAOX3
Neck: Negative JVD
Heart: Irregularly irregular, Negative S3 positive S1/S2, Negative S4, No murmur
Lungs: CTA b/l, negative wheezes/rales/rhonchi
Abd: Positive BS, NT/ND, neg rebound/rigidity/guarding
Ext: Negative cyanosis/clubbing. mild edema
Neuro: nonfocal
[2024-06-28] MEDS: KCL 20 MEQ PO ×2 (10:37→19:58)
[2024-06-28] MEDS: LASIX 40 MG IV ×2 (10:37→15:42)
[2024-06-28] MEDS: LOPRESSOR 50 MG PO ×2 (10:37→19:58)
[2024-06-28] MEDS: THERAGRAN 1 TABLET PO (10:37)
[2024-06-28] MEDS: ELIQUIS 5 MG PO ×2 (10:37→19:56)
[2024-06-28] MEDS: FLUSH (NSS) 2 FLUSH IV (10:38)
[2024-06-28] MEDS: FARXIGA 10 MG PO (12:13)
--- NOTE | 2024-06-28 13:42 | W.PN.HOSP.TC ---
Today's Communication/Plan
-
Continue IV diuresis
Uptitrate GDMT as possible
IV iron
OOB as possible
Assessment / Plan
Assessment / Plan
#Acute on chronic CHF
#H/O HFpEF with new BiV failure
#Severe tricuspid regurgitation
#Pulmonary hypertension
-Has known HFpEF with previous bicuspid AV requiring replacement x 2; TTE with LVEF 45%, RV dysfunction
-Suspicion for pacemaker associated disruption of the tricuspid valve contributing to RV overload
-Home medications included SGLT2i and loop diuretic, diuretics progressively increased recently
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
-On IV Lasix 40 mg twice daily with adequate diuresis, persistent net negative I's/O's been downtrending weight
-Per cardiology, dry weight may be as low as 198 pounds per previous documentation
-Remains in warm and wet phenotype, on room air
Plan
-Continue with IV Lasix 40 mg twice daily, trend BMP + I's and O's + weight
-Continue with SGLT2 inhibitor and beta-alma, consider low-dose ACEi for GDMT
-Continue with IV iron per ferric HF trial
-May ultimately require intervention to tricuspid valve though likely as OP
-Continue with telemetry
-Monitor on RA
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
#History of critical aortic stenosis due to bicuspid aortic valve
#Aortic root dilation/thoracic aortic aneurysm
-Echocardiogram here without significant progression
-Follows with [facility] cardiology though wants to transition back to [facility]
#Permanent atrial fibrillation
-No known history of ablation or other EP intervention
-Home medications include metoprolol and Eliquis
-No signs of RVR at this time
#Iron deficiency anemia
#Ulcerative colitis without flare
-Home medications include mesalamine for maintenance; no signs of UC flare
-Receiving IV iron as above, hemoglobin stable
-Will transition oral iron after 5 days Ferrlecit
-Will need outpatient colonoscopy in other age-related cancer
#Dyslipidemia
-No known ASCVD history
-He remains on statin therapy
#S/p PPM for high-grade AV block
#Chronic low back pain on
DVT prophylaxis: Home Eliquis
Diet: 2 g sodium restricted
CODE STATUS: Full code
Disposition: Home when medically stable
Anticipated Discharge: > 48 hours
Subjective/Interval History
-
Date of Service: June 28, 2024
Seen and examined at the bedside. No acute events reported overnight. AFVSS on room air
Renal function stable, volume status appears improved daily. Net negative I's and O's with downtrending weight
Denies any new complaints today. States he would like to transition back to [facility] cardiology after discharge
Objective Data
-
Labs:
Laboratory Results
06/28/24
06:30
Sodium 133 L
Potassium 4.2
Chloride 99
Carbon Dioxide 28
BUN 25 H
Creatinine 1.3
Glucose 80
Calcium 8.6
Vital Signs:
Vital Signs
Temp Pulse Resp BP Pulse Ox
97.4 F 70 12 107/63 95
06/28/24 11:00 06/28/24 11:00 06/28/24 11:00 06/28/24 11:00 06/28/24 11:00
I&O
06/27/24 06/28/24 06/29/24
06:59 06:59 06:59
Intake Total 1810 / 1810 1440 / 1440
Output Total 3375 / 3375 2255 / 2255
Balance -1565 / -1565 -815 / -815
Review of Systems
-
History Source: Patient
All other systems: Reviewed and negative
Physical Exam
-
General: Well Developed, Well Nourished, No Apparent Distress and Comfortable
HEENT: Normocephalic, Atraumatic and Moist Mucous Membranes
Respiratory: Clear to Auscultation and Non Labored Respirations
Cardiac: Regular Rhythm, S1/S2, Murmur and JVD; Negative Rub or Gallop
GI: Soft, Nontender, Nondistended and Normal Bowel Sounds
Musculoskeletal: No Clubbing, No Cyanosis and No Edema
Skin: Warm, Dry and Lesions (Telangiectatic lesions on bilateral buccal skin); Negative Rash
Neuro: AO x 3 and Nonfocal/Grossly Intact
Psych: Calm
Data Reviewed
-
Labs: Labs Reviewed by me and Discussed with Patient
[2024-06-28] MEDS: FERRLECIT 110 MG IV (15:40)
[2024-06-29] VITALS (7 sets, daily range): BP systolic 94–113; BP diastolic 56–71; BMI 27.3
[2024-06-29 06:34] LABS: Blood Urea Nitrogen 26 mg/dl (9-20); Calcium 8.8 mg/dl (8.4-10.2); Carbon Dioxide 29 mmol/L (22-30); Chloride 99 mmol/L (98-107); Estimated Creatinine Clearance 59 ml/min; Glucose 87 mg/dl (70-99); Magnesium 2.1 mg/dl (1.6-2.3); Potassium 4.3 mmol/L (3.5-5.1); Sodium 134 mmol/L (135-145); eGFR 56.13
[2024-06-29] MEDS: KCL 20 MEQ PO ×2 (08:12→20:59)
[2024-06-29] MEDS: THERAGRAN 1 TABLET PO (08:12)
[2024-06-29] MEDS: FARXIGA 10 MG PO (08:12)
[2024-06-29] MEDS: ELIQUIS 5 MG PO ×2 (08:12→20:59)
[2024-06-29] MEDS: LOPRESSOR 50 MG PO ×2 (08:12→21:02)
[2024-06-29] MEDS: LASIX 40 MG IV ×2 (10:30→16:32)
--- NOTE | 2024-06-29 11:55 | W.PN.HOSP.TC ---
Today's Communication/Plan
-
Anticipate transition to oral Lasix within next 24 hours
Continue with SGLT2 inhibitor
Encourage out of bed activity
Consider low-dose JOEY if hemodynamics allow
Trend BMP
Assessment / Plan
Assessment / Plan
#Acute on chronic CHF
#H/O HFpEF with new BiV failure
#Severe tricuspid regurgitation
#Pulmonary hypertension
-Has known HFpEF with previous bicuspid AV requiring replacement x 2; TTE with LVEF 45%, RV dysfunction
-Suspicion for pacemaker associated disruption of the tricuspid valve contributing to RV overload
-Home medications included SGLT2i and loop diuretic, diuretics progressively increased recently
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
-On IV Lasix 40 mg twice daily with adequate diuresis, persistent net negative I's/O's been downtrending weight
-Per cardiology, dry weight may be as low as 198 pounds per previous documentation
-Remains in warm and wet phenotype, on room air
Plan
-Continue with IV Lasix 40 mg twice daily, trend BMP + I's and O's + weight
-Continue with SGLT2 inhibitor and beta-alma; consider low-dose ACEi for GDMT
-Continue with IV iron per ferric HF trial
-May ultimately require intervention to tricuspid valve though likely as OP
-Continue with telemetry
-Monitor on RA
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
#History of critical aortic stenosis due to bicuspid aortic valve
#Aortic root dilation/thoracic aortic aneurysm
-Echocardiogram here without significant progression
-Follows with [facility] cardiology though wants to transition back to [place]
#Permanent atrial fibrillation
-No known history of ablation or other EP intervention
-Home medications include metoprolol and Eliquis
-No signs of RVR at this time
#Iron deficiency anemia
#Ulcerative colitis without flare
-Home medications include mesalamine for maintenance; no signs of UC flare
-Receiving IV iron as above, hemoglobin stable
-Will transition oral iron after 5 days Ferrlecit
-Will need outpatient colonoscopy in other age-related cancer
#Dyslipidemia
-No known ASCVD history
-He remains on statin therapy
#S/p PPM for high-grade AV block
#Chronic low back pain on
DVT prophylaxis: Home Eliquis
Diet: 2 g sodium restricted
CODE STATUS: Full code
Disposition: Home when medically stable
Anticipated Discharge: 24 - 48 hours
Subjective/Interval History
-
Date of Service: June 29, 2024
Seen and examined at the bedside. No acute events reported overnight. AFVSS this morning
Creatinine with slight increase to 1.4. Patient states he was able to walk 4 times around the halls yesterday, minimal shortness of breath or fatigue
As of this morning he feels well and denies any new complaints
Objective Data
-
Labs:
Laboratory Results
06/29/24
05:46
Sodium 134 L
Potassium 4.3
Chloride 99
Carbon Dioxide 29
BUN 26 H
Creatinine 1.4 H
Glucose 87
Calcium 8.8
Vital Signs:
Vital Signs
Temp Pulse Resp BP Pulse Ox
97.9 F 66 16 108/63 100
06/29/24 11:00 06/29/24 11:00 06/29/24 11:00 06/29/24 11:00 06/29/24 11:00
I&O
06/28/24 06/29/24 06/30/24
06:59 06:59 06:59
Intake Total 1440 / 1440 710 / 710
Output Total 2255 / 2255 2450 / 2450
Balance -815 / -815 -1740 / -1740
Review of Systems
-
History Source: Patient
All other systems: Reviewed and negative
Physical Exam
-
General: Well Developed, Well Nourished, No Apparent Distress and Appears Chronically Ill
HEENT: Normocephalic, Atraumatic and Moist Mucous Membranes
Respiratory: Clear to Auscultation and Non Labored Respirations
Cardiac: Regular Rhythm, S1/S2, Murmur and JVD; Negative Rub or Gallop
GI: Soft, Nontender, Nondistended and Normal Bowel Sounds
Musculoskeletal: No Clubbing, No Cyanosis and Other (1+ lower extremity edema)
Skin: Warm, Dry and Normal Turgor; Negative Rash
Neuro: AO x 3 and Nonfocal/Grossly Intact; Negative Tremors
Psych: Calm
Data Reviewed
-
Labs: Labs Reviewed by me and Discussed with Patient
[2024-06-29] MEDS: NON-FORMULARY ITEM 4.8 GRAMS PO (13:03)
[2024-06-29] MEDS: FERRLECIT 110 MG IV (13:04)
--- NOTE | 2024-06-29 13:34 | W.PN.CARDCBS ---
Today's Communication / Plan
-
Will attempt to diurese with IV Lasix for another 24 hours. Creatinine at 1.4 and will continue to follow.
Increase activity.
Continue metoprolol, Eliquis, and Farxiga.
Hopeful for discharge in a.m.
Impression / Plan
-
.
PCP: Dr. Merchant
Primary housekeeping coordinator: previously Dr. Bellamy, currently Dr. Josh Prater at [facility]
Impression:
Admitted with SOB and edema 06/24/24
Acute HFmrEF
CM EF 45-50% by echo 06/24/24
Aortic valve disease status
s/p bioprosthetic AVR #27 [place] at [facility] 2012
then s/p valve in valve TAVR at [facility] 08/2023
Permanent Afib
Atrial fibrillation, permanent
Chronic Eliquis OAC
s/p Medtronic PPM
Nonobstructive CAD per cath 05/2012
Cardiomyopathy
SAMARIA 07/2012: EF 45%
Echo 01/2017, EF 50 to 55%, stable AVR, mean gradient 11
Echo 01/2019: EF 50-55%, stable AVR, mean gradient 6, PAP 34-39
Echo 12/17/20: EF 50 to 55%, mod LVH, mildly dilated RV with normal systolic function, severe LAE, well-seated bioprosthetic AV peak/mean 15/9 mmHg, mild to mod TR, PAP 43 to 48 mmHg, prox ascending aorta 4.5 cm
Echo 06/24/24: EF 45-50%, septal hypokinesis/contraction abnormality with severe inferoapical hypokinesis, mild MR, TAVR in SAVR peak/mean 12/6 mmHg with trace aortic regurgitation that could be underestimated due to acoustic shadowing, severely
dilated and hypokinetic RV with pacing wires identified and evidence of severe TR with marked RA dilatation
RHC 06/24/2024: RA 23, PA 55/20, PCWP 22, CO 4.9, CI 2.2
-LDL 50 and patient is not chronically on statin.
Plan:
He continues to diurese and weight down to 201. Right heart cath results with PCWP 22.
-Would continue to attempt to diurese to 199 if possible
-His HF symptoms appear related to severe TR, may be pacemaker mediated.
-Patient reports similar TR, seemed to be new after PPM, felt by team at [facility] that the TR would improve with AVR, but it never did.
-Cont Lasix 40 mg IV BID. Patient was taking Lasix 80 mg PO BID prior to admission.
-Wt down 13 lbs since admit. Patient reports a previous dry weight of 206 lbs and at one point as low as 198 lbs.
Creatinine up to 1.4. follow. Remains mildly hyponatremic.
Continue rate control strategy for A-fib.
-Continue metoprolol and Eliquis.
Continue Farxiga. Outpatient dose of Jardiance 10 mg daily changed to Farxiga 10 mg daily due to formulary changes at , but will resume Jardiance at d/c.
HPI: 64-year-old male with history of bioprosthetic AVR at [facility] on 05/27/2012 with LV thrombus detected on SAMARIA prior to surgery and resected during surgery, EF 15 to 20% prior to AVR, improvement in LV function to EF 50 to 55% on echo
12/2020, subsequent valve in valve TAVR August [address] [facility], atrial flutter/fibrillation status post multiple cardioversions, now with permanent atrial fibrillation, syncope with bradycardia and heart block status post permanent pacemaker 2021
(Medtronic) at [facility], anemia w/ GI bleed due to ulcerative colitis 2007, Echo at that time of pacemaker in 2021 showed EF 65% with stable bioprosthetic valve mean gradient 12 mmHg. He was previously followed by Dr. Bellamy and was last seen
in May 2022. More recently he has been followed by Dr. Josh Prater at [facility]. Patient reports he has not felt much better since the TAVR in August 2023 with increasing shortness of breath with exertion and lower extremity edema. He has had
a 10 pound weight gain over the past month with doubling of outpatient diuretic to Lasix 80 mg twice daily 3 weeks ago. He was subsequently started on Jardiance. He tells me his annual pacemaker check last week showed permanent atrial
fibrillation. He lives alone and was seen by family members 4 days ago who were concerned about his health and advised him to get medical care. He tells me he had a few things to get taking care of over the past few days but that his brother
dropped him off here at the ED for evaluation today.
Progress Note - Traveling Operator
Subjective
Date of Service: June 29, 2024
Overall is feeling better. Still with some abdominal bloating.
Objective
Labs:
06/27/24 06:58
06/29/24 05:46
Labs
Hgb 8.5 g/dL (13.0-18.0) L 06/27/24 06:58
Hct 29.7 % (39.0-52.0) L 06/27/24 06:58
Plt Count 213 10^3/uL (130-400) 06/27/24 06:58
PT 19.6 Sec (11.4-14.6) H 06/24/24 11:14
INR 1.63 06/24/24 11:14
Sodium 134 mmol/L (135-145) L 06/29/24 05:46
Potassium 4.3 mmol/L (3.5-5.1) 06/29/24 05:46
BUN 26 mg/dl (9-20) H 06/29/24 05:46
Creatinine 1.4 mg/dL (0.7-1.3) H 06/29/24 05:46
Glucose 87 mg/dl (70-99) 06/29/24 05:46
Vital Signs and I&O:
Vital Signs
Temp Pulse Resp BP Pulse Ox
97.9 F 66 16 108/63 100
03/23/25 11:00 06/29/24 11:00 06/29/24 11:00 06/29/24 11:00 06/29/24 11:00
Vital Signs
Temp Pulse Resp BP Pulse Ox
97.9 F 66 16 108/63 100
06/29/24 11:00 06/29/24 11:00 06/29/24 11:00 06/29/24 11:00 06/29/24 11:00
Intake & Output
06/27/24 06/28/24 06/29/24 06/30/24
06:59 06:59 06:59 06:59
Intake Total 1810 / 1810 1440 / 1440 710 / 710
Output Total 3375 / 3375 2255 / 2255 2450 / 2450
Balance -1565 / -1565 -815 / -815 -1740 / -1740
Physical Exam
Physical Exam
GEN: No distress, awake, Ox3
HEENT: supple, anicteric, mmm
LUNGS: CTA, no wheezes/rales
CV: Irreg, S1/S2, 1/6 syst LSB, no gallop
ABD: soft, BS+, NT/ND
EXT: No edema
NEURO: Gross non-focal
SKIN: No rash
[2024-06-30 03:55] VITALS: BP 103/62
[2024-06-30 06:00] VITALS: BMI 26.9
[2024-06-30 07:25] VITALS: BP 109/67
[2024-06-30 08:45] LABS: Blood Urea Nitrogen 25 mg/dl (9-20); Carbon Dioxide 27 mmol/L (22-30); Chloride 99 mmol/L (98-107); Estimated Creatinine Clearance 59 ml/min; Glucose 133 mg/dl (70-99); Magnesium 2.1 mg/dl (1.6-2.3); Potassium 4.5 mmol/L (3.5-5.1); Sodium 135 mmol/L (135-145); eGFR 56.13
[2024-06-30] MEDS: KCL 20 MEQ PO (08:54)
[2024-06-30] MEDS: FARXIGA 10 MG PO (08:54)
[2024-06-30] MEDS: THERAGRAN 1 TABLET PO (08:54)
[2024-06-30] MEDS: NON-FORMULARY ITEM 4.8 GRAMS PO (08:54)
[2024-06-30] MEDS: ELIQUIS 5 MG PO (08:54)
[2024-06-30] MEDS: LOPRESSOR 50 MG PO (08:54)
[2024-06-30] MEDS: LASIX 80 MG PO (08:56)
[2024-06-30] MEDS: LASIX IV (09:04)
[2024-06-30 11:11] VITALS: BP 110/71
--- NOTE | 2024-06-30 12:44 | W.PN.HOSP.TC ---
Addendum entered and electronically signed by Primo Aviles MD, Resident 06/30/24 16:30:
CDI: Acute kidney injury, resolved
Addendum entered and electronically signed by Nnamdi Higginbotham MD 06/30/24 15:39:
Transition to oral diuretic reticulocyte's and continue SGLT2 inhibitor. Follow heart failure diet outpatient cardiology in PCP follow-up.
Original Note:
Today's Communication/Plan
-
* Switch to oral furosemide.
* Anticipated discharge today.
Assessment / Plan
Assessment / Plan
Assessment
Mario Kelly, 64-year-old male with a complicated cardiac history, has had worsening dyspnea on exertion, progressive weight gain which has been refractory to increased furosemide dosing and fatigue over the past couple of months. He has a history of
dilated aortic root for which he underwent open heart replacement in 2012; this failed and required a TAVR in 2023. He also has a history of atrial fibrillation, and has a pacemaker. Also started on empagliflozin a month or so ago. His furosemide
was increased from 40 mg BID to 80 mg BID a month ago for weight gain, but that did not help. He does not check his weights at home but reports worsening LE edema. Also reports that furosemide has not been making him urinate as much as he used to;
took 80 PO before coming to the ED this morning, and to go to the bathroom only once.
Impression and plan
Acute on (known) chronic heart failure with preserved ejection fraction
Mildly reduced ejection fraction on echo this admission
- Hypervolemia on exam; pro-BNP 2160, CXR with pulmonary edema and severe cardiomegaly.
- IV furosemide 40 mg BID; transition to oral.
- Follow I&O and daily weight.
- 2 gram sodium diet.
- Continue SGLT2 and metoprolol.
- Echocardiogram with mildly reduced EF at 45-50%.
- Need to establish his dry weight (patient does not know).
- Cardiology following.
Severe tricuspid regurgitation
Right pressure/ventricular volume overload likely secondary to above
- Per echocardiogram.
- Needs to be addressed, possibly as outpatient after discharge.
- Cardiology following.
Aortic valvular disease
History of aortic root dilation
Status-post SAVR 2012
Status-post [id number] 2023
- Echocardiogram with stable findings.
- Follows cardiology team at [facility].
Permanent atrial fibrillation
Sinus bradycardia
Status-post pacemaker placement
- Continue metoprolol and apixaban.
- Follow on telemetry.
Hypokalemia
- Continue potassium supplementation.
- Follow CMP and Mg; replete as needed.
Hyponatremia
- Mild, and likely hypervolumic.
- Follow CMP.
Elevated creatinine, improving
- Baseline unclear, although he denies CKD.
- If this is an DOMI, likely cardiorenal and should respond to diuresis.
- Follow CMP.
Iron deficiency anemia
- Of unclear etiology; possibly in setting of UC
- IV iron daily this admission, then oral -- after discharge.
Hyperbilirubinemia
Elevated alkaline phosphatase
- Of unclear etiology.
- Follow CMP.
Primary hypertension
- Normotensive and stable.
- Continue metoprolol and diuresis.
Hyperlipidemia
- Check lipids.
- Previously on statin for a couple of days and did not like how he felt.
Ulcerative colitis
- Stable and not in a flare.
- Continue mesalamine.
Chronic back pain
- Continue acetaminophen as needed.
Thromboprophylaxis
- Apixaban.
Code status
- Full.
Anticipated Discharge: Today
Subjective/Interval History
-
Date of Service: June 30, 2024
Stable.
Objective Data
-
Labs:
Laboratory Results
06/30/24
07:52
Sodium 135
Potassium 4.5
Chloride 99
Carbon Dioxide 27
BUN 25 H
Creatinine 1.4 H
Glucose 133 H
Calcium 9.0
Vital Signs:
Vital Signs
Temp Pulse Resp BP Pulse Ox
98.1 F 65 18 110/71 98
06/30/24 11:11 06/30/24 11:11 06/30/24 11:11 06/30/24 11:11 06/30/24 11:11
I&O
06/29/24 06/30/24 07/01/24
06:59 06:59 06:59
Intake Total 710 / 710 1070 / 1070
Output Total 2450 / 2450 2625 / 2625
Balance -1740 / -1740 -1555 / -1555
Review of Systems
-
History Source: Patient
All other systems: Reviewed and negative
Physical Exam
-
General: Well Developed, Well Nourished, No Apparent Distress and Appears Chronically Ill
HEENT: Normocephalic, Atraumatic and Moist Mucous Membranes
Respiratory: Clear to Auscultation and Non Labored Respirations
Cardiac: Regular Rhythm, S1/S2, Murmur and JVD; Negative Rub or Gallop
GI: Soft, Nontender, Nondistended and Normal Bowel Sounds
Musculoskeletal: No Clubbing, No Cyanosis and Other (1+ lower extremity edema)
Skin: Warm, Dry and Normal Turgor; Negative Rash
Neuro: AO x 3 and Nonfocal/Grossly Intact; Negative Tremors
Psych: Calm
--- NOTE | 2024-06-30 13:13 | W.DCSUMMARY ---
Documented by User: Primo Aviles MD, Resident 06/30/24 14:46
Discharge Summary
Discharge Data
Date of Admission: 06/24/24
Date of Discharge: 06/30/24
-
Pending Results: No
Hospital Course
Primary discharge diagnosis
* Acute mildly reduced ejection fraction
* Severe tricuspid regurgitation
* Right pressure/ventricular volume overload secondary to above
Secondary discharge diagnoses
- Aortic valvular disease
- History of aortic root dilation
- Status-post SAVR 2012
- Status-post [id number] 2023
- Permanent atrial fibrillation
- Sinus bradycardia
- Status-post pacemaker placement
- Hypokalemia
- Hyponatremia
- Hyperbilirubinemia
- Elevated alkaline phosphatase
- Primary hypertension
- Hyperlipidemia
- Ulcerative colitis
- Chronic back pain
Hospital course
Mario Kelly, 64-year-old male with a complicated cardiac history, was admitted to the hospital on 06-24-24 with dyspnea on exertion, increased bilateral lower extremity swelling, progressive weight gain which has been refractory to increased
furosemide dosing and fatigue over the past couple of months. Echocardiogram was consistent with and EF of 45-50%, severe tricuspid regurgitation, severely dilated and hypokinetic right ventricle. Cathaterization was consistent with modestly
elevated biventricular filling pressures. He received intravenous diuresis, and lost about 20 lbs this admission. He remained hemodynamically stable throughout the admission, and blood work unremarkable. Importance of medication adherence as an
outpatient was strongly emphasized. Follow-up with primary and cardiology in under 1 week. Recommended to consider an JOEY/ARB as an outpatient if tolerated.
Discharge Plan
-
Patient Disposition: Home (Routine Discharge)
Discharge Diagnosis/Procedures: Acute heart failure with mildly reduced ejection fraction
Severe tricuspid regurgitation
Right pressure/ventricular volume overload likely secondary to above
Aortic valvular disease
History of aortic root dilation
Status-post SAVR 2012
Status-post [id number] 2023
Permanent atrial fibrillation
Sinus bradycardia
Status-post pacemaker placement
Condition: Good
Diet: 2 Gram Sodium and Restrict fluids to 64 oz
Activity: No restrictions
Driving Restrictions: As prior to admission
Bathing Restrictions: None
Blood Work: BMP and Mg in 1 week
Others Tests: Advanced heart failure consultation outpatient.
Specialty Instructions: Weigh Daily- Call MD for wt gain/loss 3 lbs overnight/5 lbs in 1 week
Instructions: *PCP/Other Consumer Lender Heart Failure Instructions
Referrals:
Mario Merchant MD [Family Provider] - in less than 1 week
Cristino Bellamy MD [Active] - 07/02/24 11:20 am (You are scheduled to see Dr. Bellamy physician drafter assistant, Verena, in the [facility] office on 07/02/2024 at 11:20 AM. Please call [phone] if you need to reschedule)
Additional Discharge Medication Instructions: -Your previous dose of Lopressor (metoprolol tartrate) 50 mg twice a day was changed to Toprol XL (metoprolol succinate) 25 mg twice a day to help with heart failure
Prescriptions:
New
metoprolol succinate [Toprol XL] 25 mg tablet extended release 24 hr
25 mg PO BID Qty: 60 11RF
Continued
mesalamine [Lialda] 1.2 GM tablet,delayed release (DR/EC)
4.8 g PO DAILY
Eliquis 5 MG tablet
5 mg PO BID
furosemide [Lasix] 40 mg Tablet
80 mg PO BID
therapeutic multivitamin Tablet
1 tab PO DAILY
acetaminophen [Tylenol 8 Hour] 650 mg Tablet Extended Release
1,300 mg PO [id number] PRN (Reason: mild pain)
potassium chloride 20 mEq Tablet Extended Release
20 meq PO BID
Jardiance 10 mg Tablet
10 mg PO DAILY
Discontinued
metoprolol tartrate 50 MG tablet
50 mg PO BID
Discharge Orders:
Discharge Patient (As Directed); Ordered 06/30/24
Ordered By: Primo Aviles
Discharge Date and Time
Print Language: AUSTRALIAN

Documented by User: Nnamdi Higginbotham MD 06/30/24 15:38
Discharge Summary
Discharge Data
Date of Admission: 06/24/24
Date of Discharge: 06/30/24
Discharge Plan
-
Patient Disposition: Home (Routine Discharge)
Discharge Diagnosis/Procedures: Acute heart failure with mildly reduced ejection fraction
Severe tricuspid regurgitation
Right pressure/ventricular volume overload likely secondary to above
Aortic valvular disease
History of aortic root dilation
Status-post SAVR 2012
Status-post [id number] 2023
Permanent atrial fibrillation
Sinus bradycardia
Status-post pacemaker placement
Condition: Good
Diet: 2 Gram Sodium and Restrict fluids to 64 oz
Activity: No restrictions
Driving Restrictions: As prior to admission
Bathing Restrictions: None
Blood Work: BMP and Mg in 1 week
Others Tests: Advanced heart failure consultation outpatient.
Specialty Instructions: Weigh Daily- Call MD for wt gain/loss 3 lbs overnight/5 lbs in 1 week
Instructions: *PCP/Other Consumer Lender Heart Failure Instructions
Referrals:
Mario Merchant MD [Family Provider] - in less than 1 week
Cristino Bellamy MD [Active] - 07/02/24 11:20 am (You are scheduled to see Dr. Bellamy physician drafter assistant, Verena, in the [facility] office on 07/02/2024 at 11:20 AM. Please call [phone] if you need to reschedule)
Additional Discharge Medication Instructions: -Your previous dose of Lopressor (metoprolol tartrate) 50 mg twice a day was changed to Toprol XL (metoprolol succinate) 25 mg twice a day to help with heart failure
Prescriptions:
New
metoprolol succinate [Toprol XL] 25 mg tablet extended release 24 hr
25 mg PO BID Qty: 60 11RF
Continued
mesalamine [Lialda] 1.2 GM tablet,delayed release (DR/EC)
4.8 g PO DAILY
Eliquis 5 MG tablet
5 mg PO BID
furosemide [Lasix] 40 mg Tablet
80 mg PO BID
therapeutic multivitamin Tablet
1 tab PO DAILY
acetaminophen [Tylenol 8 Hour] 650 mg Tablet Extended Release
1,300 mg PO [id number] PRN (Reason: mild pain)
potassium chloride 20 mEq Tablet Extended Release
20 meq PO BID
Jardiance 10 mg Tablet
10 mg PO DAILY
Discontinued
metoprolol tartrate 50 MG tablet
50 mg PO BID
Discharge Orders:
Discharge Patient (As Directed); Ordered 06/30/24
Ordered By: Primo Aviles
Discharge Date and Time
Print Language: AUSTRAL[place]
--- NOTE | 2024-06-30 13:47 | W.PN.CARDCBS ---
Addendum entered and electronically signed by Marisol López DO 06/30/24 17:39:
I saw and examined the patient.
The Car Jockey's note was reviewed and I agree with the note.
Comment: Patient was seen and examined. Overall states that he is walking the halls several times with mild shortness of breath or chest pain. On room air. Transition to oral Lasix as of this morning
General: No acute distress, AAOX3
Heart: Irregularly irregular positive S1/S2,Positive pacemaker
Lungs: CTA b/l, negative wheezes/rales/rhonchi
Abd: Positive BS, NT/ND, neg rebound/rigidity/guarding
Ext: Trace pedal edema
Neuro: nonfocal
Plan:
HFmrEF
- echocardiogram this admission noting EF 45-50% with stable TAVR and SAVR and peak/mean transaortic gradients 12/6 mmHg and trace AI with mild MR with RV dilatation and dysfunction and severe TR.
- Right heart catheterization 06/24/2024 with PA pressures 55/20, wedge 22, RA 23, cardiac index 2.2.
- He has done well with IV diuretics and appears relatively euvolemic. He has lost approximately 14 pounds
-Transition to Lasix 80 mg twice daily with plans for outpatient follow-up in the office and repeat lab work.
- Continue optimization of goal-directed medical therapy and heart failure monitoring.
- History of persistent atrial fibrillation over the last year on Eliquis anticoagulation. Will continue rate control strategy for now and discuss options as an outpatient.
-Consider outpatient pulmonary evaluation for sleep apnea if not recently done
-Stable for discharge home with outpatient cardiac follow-up
Original Note:
Today's Communication / Plan
-
Changed Lopressor to Toprol XL
Lasix 80 mg PO BID
1 week HF f/u appt made as patient not going home with VN
Impression / Plan
-
PCP: Dr. Merchant
Primary finance teacher: previously Dr. Bellamy, currently Dr. Josh Prater at [facility] and asking to switch back to Dr. Bellamy
Impression:
Admitted with SOB and edema 06/24/24
Acute HFmrEF
CM EF 45-50% by echo 06/24/24
Aortic valve disease status
s/p bioprosthetic AVR #[id number] [facility] at [facility] 2012
then s/p valve in valve TAVR at [facility] 08/2023
Permanent Afib
Atrial fibrillation, permanent
Chronic Eliquis OAC
s/p Medtronic PPM
Nonobstructive CAD per cath 05/2012
Cardiomyopathy
SAMARIA 07/2012: EF 45%
Echo 01/2017, EF 50 to 55%, stable AVR, mean gradient 11
Echo 01/2019: EF 50-55%, stable AVR, mean gradient 6, PAP 34-39
Echo 12/17/20: EF 50 to 55%, mod LVH, mildly dilated RV with normal systolic function, severe LAE, well-seated bioprosthetic AV peak/mean 15/9 mmHg, mild to mod TR, PAP 43 to 48 mmHg, prox ascending aorta 4.5 cm
Echo 06/24/24: EF 45-50%, septal hypokinesis/contraction abnormality with severe inferoapical hypokinesis, mild MR, TAVR in SAVR peak/mean 12/6 mmHg with trace aortic regurgitation that could be underestimated due to acoustic shadowing, severely
dilated and hypokinetic RV with pacing wires identified and evidence of severe TR with marked RA dilatation
[facility] 06/24/2024: RA 23, PA 55/20, PCWP 22, CO 4.9, CI 2.2
Plan:
-Weight is down 19 lbs this admission and patient has symptomatically improved. Patient reports that lowest dry weight in the past was 198 lbs and he weighs 197 lbs on 06/30/24.
-Cont daily weights at home, this was written on d/c instructions for patient
-Cre as high as 1.7 this admission and then improved with diuresis. Cre 1.4 on 06/30/24. Patient was following at [facility] for the last several years and so will need to establish new baselines, but suspect he has CKD.
-Recommend Lasix 80 mg PO BID upon d/c to home, this was his preadmission dose as well and then he diuresed nicely with Lasix 40 mg IV BID
-Patient had RHC 06/24/24 and PCWP was 22 and CI 2.2.
-Echo noted above, there is sev TR. Patient reports similar TR, seemed to be new after PPM and there was a thought by his team at [facility] that the TR would improve with AVR, but it never did.
-Patient was taking Lopressor 50 mg BID prior to admission and it has been continued, but with EF down at 45% will change to Toprol XL 25 mg BID on 06/30/24. Changed on d/c instructions, instructions written for patient and e-scribed to his pharmacy
-Will hold off on adding JOEY/ARB/ARNI/aldosterone antagonist due to DOMI on admission
-Outpatient dose of Jardiance 10 mg daily changed to Farxiga 10 mg daily due to formulary changes at , but will resume Jardiance at d/c.
-TAVR in SAVR with trace aortic regurgitation on echo.
-Patient with at least persistent if not permanent Afib. Device check in the ER showed Afib for the last year and he had previous CV, but unclear if he ever tried AAD. No h/o ablation.
-Outpatient dose of Eliquis 5 mg BID (age 64, wt 95.8 kg, Cre 1.4) was continued
-LDL 50 and patient is not chronically on statin.
-Stable for d/c from cardiac perspective, reviewed with hospitalist resident
HPI: 64-year-old male with history of bioprosthetic AVR at [facility] on 05/27/2012 with LV thrombus detected on SAMARIA prior to surgery and resected during surgery, EF 15 to 20% prior to AVR, improvement in LV function to EF 50 to 55% on echo
12/2020, subsequent valve in valve TAVR August 2024 at [facility], atrial flutter/fibrillation status post multiple cardioversions, now with permanent atrial fibrillation, syncope with bradycardia and heart block status post permanent pacemaker 2021
(Medtronic) at [facility], anemia w/ GI bleed due to ulcerative colitis 2007, Echo at that time of pacemaker in 2021 showed EF 65% with stable bioprosthetic valve mean gradient 12 mmHg. He was previously followed by Dr. Bellamy and was last seen
in May 2022. More recently he has been followed by Dr. Josh Prater at [facility]. Patient reports he has not felt much better since the TAVR in August 2023 with increasing shortness of breath with exertion and lower extremity edema. He has had
a 10 pound weight gain over the past month with doubling of outpatient diuretic to Lasix 80 mg twice daily 3 weeks ago. He was subsequently started on Jardiance. He tells me his annual pacemaker check last week showed permanent atrial
fibrillation. He lives alone and was seen by family members 4 days ago who were concerned about his health and advised him to get medical care. He tells me he had a few things to get taking care of over the past few days but that his brother
dropped him off here at the ED for evaluation today.
Progress Note - Manager Er
Subjective
Date of Service: June 30, 2024
Feeling better compared to admission
Objective
Labs:
06/27/24 06:58
06/30/24 07:52
Labs
Hgb 8.5 g/dL (13.0-18.0) L 06/27/24 06:58
Hct 29.7 % (39.0-52.0) L 06/27/24 06:58
Plt Count 213 10^3/uL (130-400) 06/27/24 06:58
PT 19.6 Sec (11.4-14.6) H 06/24/24 11:14
INR 1.63 06/24/24 11:14
Sodium 135 mmol/L (135-145) 06/30/24 07:52
Potassium 4.5 mmol/L (3.5-5.1) 06/30/24 07:52
BUN 25 mg/dl (9-20) H 06/30/24 07:52
Creatinine 1.4 mg/dL (0.7-1.3) H 06/30/24 07:52
Glucose 133 mg/dl (70-99) H 06/30/24 07:52
Vital Signs and I&O:
Vital Signs
Temp Pulse Resp BP Pulse Ox
98.1 F 65 18 110/71 98
06/30/24 11:11 06/30/24 11:11 06/30/24 11:11 06/30/24 11:11 06/30/24 11:11
Vital Signs
Temp Pulse Resp BP Pulse Ox
98.1 F 65 18 110/71 98
06/30/24 11:11 06/30/24 11:11 06/30/24 11:11 06/30/24 11:11 06/30/24 11:11
Intake & Output
06/28/24 06/29/24 06/30/24 07/01/24
06:59 06:59 06:59 06:59
Intake Total 1440 / 1440 710 / 710 1070 / 1070
Output Total 2255 / 2255 2450 / 2450 2625 / 2625
Balance -815 / -815 -1740 / -1740 -1555 / -1555
Physical Exam
Physical Exam
GEN: NAD. AAOx3
HEENT: MMM
LUNGS: RA.
CV: V paced on tele.
ABD: ND
EXT: No edema
NEURO: Gross non-focal
SKIN: No rash
--- NOTE | 2024-06-30 15:08 | CM ---
Chart reviewed. Patient is stable for d/c today
No CM needs identified at this time
Plan: Home; no needs
--- NOTE | 2024-06-30 15:34 | PN.CDI ---
CDI
- -
CDI:
Physician Documentation Request
Admit Date: 06/24/24 14:06
Dear Doctor Traci
Hospitalist progress notes stes 'elevated creatinine improving, .....he denies CKD, FI this is an DOMI likely cardiorenal.....'
eGFR and creatinine results:
06/24/24 06/25/24 06/26/24
11:14 07:18 08:37
Creatinine 1.7 H 1.4 H 1.3
eGFR 44.46 56.13 > 60.00
06/27/24 06/28/24 06/29/24
06:58 06:30 05:46
Creatinine 1.3 1.3 1.4 H
eGFR > 60.00 > 60.00 56.13
06/30/24
07:52
Creatinine 1.4 H
eGFR 56.13
If possible, Please clarify which of the following accurately represents the patient's renal status:
____ - Acute renal failure (with type, if appropriate on chronic kidney disease (CKD) - please provide stage - see criteria)
____ - Acute kidney injury (non-traumatic) - only
____ - CKD, please provide stage - see criteria
____ - Other
Criteria for DOMI*
1 Increase in serum creatinine by > or = to 0.3 mg/dL (> or = to 26.5 micromol/L) within 48 hours, OR
2 Increase in serum creatinine to > or = to 1.5 times baseline, which is known or presumed to have occurred within 7 days, OR
3 Urine volume < 0.5 nL/kg/hour for six hours
Stages of Chronic Kidney Disease*
Level Description GFR
G1 Normal or High >90
G2 Mildly decreased 60-89
G3a Mildly to moderately decreased 45-59
G3b Moderately to severely decreased 30-44
G4 Severely decreased 15-29
G5 Kidney failure <15
Use of terms such as suspected, likely, concern for, or probable (associated with a specific diagnosis that is being evaluated, monitored, or treated as if it exists) are acceptable and can be coded in the inpatient setting, when documented at the
time of discharge.
Thank you,
Gege Zimmerman RN BSN
CDI Specialist
tiger text
Please use your independent medical judgment in providing your response.
*Source: Kidney Disease: Improving Global Outcomes (KDIGO) 2012
[2024-06-30 15:40] VITALS: BP 98/61
--- NOTE | 2024-07-01 10:19 | W.HF.CON ---
Heart Failure
- LV Function
Left ventricular function study result: LV Ejection fraction 41-49%
Ejection Fraction Percentage: 45-50
- ARNI
Patient already on ARNI: No
Heart Failure ARNI Not Indicated: LV Ejection Fraction >/= 40%
- ACEI/ARB
Patient already on ACEI/ARB: No
Heart Failure ACEI/ARB Not Indicated: LV Ejection Fraction > 40%
- Beta Idalmis
Patient already on Evidence Based Beta Idalmis: Yes
- Mineralocorticord Receptor Antagonist
Patient already on MRA: No
Heart Failure MRA Not Indicated: LV Ejection Fraction > 40%
- SGLT-2 Inhibitor
Patient already on SGLT-2 Inhibitor: Yes
- Afib Anticoagulation
Patient already on Anticoagulation for Afib: Yes
- NYHA CHF Classification
NYHA CHF Classification Level: Class III - Symptoms w/ min exertion, interferes w/ nml daily activity
- ACC/AHA Stage
ACC/AHA Stage: Stage C: Symptomatic Heart Failure
== END 2024-06-30 17:05 | disposition home or self-care (01) | DRG 286 ==
LOC: 4 EAST ACU 14:06
PROVIDERS: Internal Medicine Interventional Cardiology; Physician Assistant Medical; Student in an Organized Health Care Education/Training Program; ADMITTING PHYSICIAN Internal Medicine; ATTENDING PHYSICIAN Hospitalist; CONSULT PHYSICIAN Internal Medicine Cardiovascular Disease; EMERGENCY PHYSICIAN Emergency Medicine; FAMILY PHYSICIAN Family Medicine
PROC: 4B02XSZ Measurement of Cardiac Pacemaker, External Approach (ICD-10-PCS; 2024-06-25)
PROC: 4A023N6 Measurement of Cardiac Sampling and Pressure, Right Heart, Percutaneous Approach (ICD-10-PCS; 2024-06-26)
DX: I13.0 Hypertensive heart and chronic kidney disease with heart failure and stage 1 through stage 4 chronic kidney disease, or unspecified chronic kidney disease (principal); I50.21 Acute systolic (congestive) heart failure; I50.32 Chronic diastolic (congestive) heart failure; I48.21 Permanent atrial fibrillation; E87.1 Hypo-osmolality and hyponatremia; R17 Unspecified jaundice; N17.9 Acute kidney failure, unspecified; N18.9 Chronic kidney disease, unspecified; R00.1 Bradycardia, unspecified; Z95.0 Presence of cardiac pacemaker; E78.5 Hyperlipidemia, unspecified; Z95.3 Presence of xenogenic heart valve; D50.9 Iron deficiency anemia, unspecified; Z87.891 Personal history of nicotine dependence; I77.810 Thoracic aortic ectasia; Z79.01 Long term (current) use of anticoagulants; Z79.84 Long term (current) use of oral hypoglycemic drugs; Z79.899 Other long term (current) drug therapy; I25.10 Atherosclerotic heart disease of native coronary artery without angina pectoris; Z82.49 Family history of ischemic heart disease and other diseases of the circulatory system; I42.8 Other cardiomyopathies; I08.3 Combined rheumatic disorders of mitral, aortic and tricuspid valves; E87.6 Hypokalemia; R74.8 Abnormal levels of other serum enzymes; G89.29 Other chronic pain; I45.9 Conduction disorder, unspecified; I27.20 Pulmonary hypertension, unspecified; Z88.0 Allergy status to penicillin
CPT/HCPCS: 71046; 80048; 80053; 80061; 82728; 83036; 83540; 83550; 83615; 83735; 83880; 84436; 84443; 84484; 85025; 85027; 85045; 85610; 93005; 93306; 93451; 96374; 97161; 99285; C1894; J2916

== ENCOUNTER 2024-08-12 23:14 | Inpatient (IN) | payer OTHER, SELFPAY ==
[2024-08-12 15:40] VITALS: BMI 23.6
[2024-08-12 15:45] VITALS: BP 112/64
--- NOTE | 2024-08-12 15:45 | ED.GENMED ---
ED Provider Triage
<Talia Rivas PA-C - Last Filed: 08/12/24 15:53>
-
Attestation: A medical screening examination has been initiated by a qualified medical provider. Based on the assessment performed at this time, it has been determined that an emergent medical condition may exist and the patient has been informed
that further medical evaluation and possible additional diagnostic testing may be needed.
HPI: 64-year-old male presenting with bilateral lower extremity swelling. Swelling and pain started on 07/30 and has been progressively worsening. He reports driving back from [place] on 07/28 with very minimal breaks prior to onset of leg swelling.
Patient admitted at a hospital in [place] from 08/07-08/09 and discharged after IV diuresis. Patient reports little improvement in symptoms. Patient having trouble ambulating due to pain. Patient denies fever, chills, chest pain, shortness of breath.
He is currently anticoagulated on Eliquis and compliant with medication.
GENERAL: Alert , in no apparent distress
EYE: No visual abnormalities.
NECK: Trachea midline
ENT: No visible abnormalities.
LUNGS: No acute respiratory distress
NEUROLOGICAL: Alert and oriented
SKIN: Skin intact. No visible changes.
MUSCULOSKELETAL: Pitting edema bilateral lower extremities.
PSYCH: Normal and appropriate interaction.
Will check labs, proBNP, ultrasound of bilateral lower extremities to rule out DVT.
This is a medical evaluation conducted in person to initiate diagnostic evaluation and provide initial therapeutics. Please see further documentation by the treating clinician.
History of Present Illness
<Talia Rivas PA-C - Last Filed: 08/12/24 15:53>
General
Chief Complaint: Swelling
Time Seen by Provider: 08/12/24 17:26
<Karl Barajas PA-C - Last Filed: 08/12/24 20:25>
General
Source: patient
Exam Limitations: none
History of Present Illness
History of Present Illness:
64-year-old male presents with increasing leg swelling and discomfort. He has a history of CHF, A-fib on Eliquis. He notes a recent car trip back from [place]. He was admitted to a hospital in [place], [place] last week for fluid retention. He states
he was getting IV diuretics. He was discharged about 4 days ago but since then has had increasing swelling in his legs. He denies orthopnea. No chest pain. He denies cough fever or shortness of breath. Last admission was in June of this year
which was for volume overload and acute kidney injury. At that time he had an ejection fraction of 40 to 45%
Past History
<Talia Rivas PA-C - Last Filed: 08/12/24 15:53>
Past History
ED Past Medical History: Cancer and Other
ED Past Surgical History: Other
Social History
Drug: None
Living: with family
Employment: Employed
Phy Exam
<Karl Barajas PA-C - Last Filed: 08/12/24 20:25>
Physical Exam
Physical Exam:
General: Well-appearing male no acute respiratory distress
HEENT normocephalic atraumatic
Heart: Regular rate and rhythm
Lungs: No obvious rales
Extremities significant pitting edema spreading into the mid shins bilaterally. There are dopplerable pulses to bilateral feet
Skin: Warm no rash
Scores
<Karl Barajas PA-C - Last Filed: 08/12/24 20:25>
Heart Failure Risk
Heart Failure Risk Score: Not Applicable
Course
<Talia Rivas PA-C - Last Filed: 08/12/24 15:53>
Orders/Labs/Results
Orders:
Orders
08/12/24 15:48
US Periph Venous LOWER Ext Seth Urgent
Comment: recent travel
Reason For Exam: b/l lower extremity swelling
08/12/24 16:01
Complete Blood Count/With Diff Urgent
Comprehensive Metabolic Panel Urgent
NT-proBNP Urgent
08/12/24 18:04
CR Chest - 2 Views Urgent
Comment:
Reason For Exam: volume overloaded
08/12/24 20:21
Furosemide [Lasix] 80 mg IV NOW STA
Abnormal Lab Results
08/12/24
16:01
RBC 3.89 L 10^6/uL
(4.70-6.10)
Hgb 10.8 L g/dL
(13.0-18.0)
Hct 33.3 L %
(39.0-52.0)
MCHC 32.4 L g/dL
(33.0-37.0)
RDW 25.8 H %
(11.5-14.5)
Abs Immat Gran (auto) 0.1 H 10^3/uL
(0-0.05)
Absolute Neuts (auto) 7.4 H 10^3/uL
(1.4-6.5)
Absolute Lymphs (auto) 0.6 L 10^3/uL
(1.2-3.4)
Absolute Monos (auto) 1.0 H 10^3/uL
(0.1-0.6)
Neutrophils % 78.6 H %
(42.2-75.2)
Lymphocytes % 6.3 L %
(20.5-51.1)
Monocytes % 10.6 H %
(1.7-9.3)
BUN 39 H mg/dl
(9-20)
Total Bilirubin 1.6 H mg/dl
(0.2-1.3)
Alkaline Phosphatase 227 H U/L
(38-126)
08/12/24 16:01
08/12/24 16:01
Vital Signs
Initial and Last Documented VS:
Initial Vital Signs
Temp Pulse Resp BP Pulse Ox
98 F 60 16 112/64 100
08/12/24 15:45 08/12/24 15:45 08/12/24 15:45 08/12/24 15:45 08/12/24 15:45
Last Documented Vital Signs
Temp Pulse Resp BP Pulse Ox
98 F 62 16 117/70 97
08/12/24 15:45 08/12/24 17:55 08/12/24 17:55 08/12/24 17:55 08/12/24 17:55
<Karl Barajas PA-C - Last Filed: 08/12/24 20:25>
Orders/Labs/Results
Orders:
Orders
08/12/24 15:48
US Periph Venous LOWER Ext Seth Urgent
Comment: recent travel
Reason For Exam: b/l lower extremity swelling
08/12/24 16:01
Complete Blood Count/With Diff Urgent
Comprehensive Metabolic Panel Urgent
NT-proBNP Urgent
08/12/24 18:04
CR Chest - 2 Views Urgent
Comment:
Reason For Exam: volume overloaded
08/12/24 20:21
Furosemide [Lasix] 80 mg IV NOW STA
Abnormal Lab Results
08/12/24
16:01
RBC 3.89 L 10^6/uL
(4.70-6.10)
Hgb 10.8 L g/dL
(13.0-18.0)
Hct 33.3 L %
(39.0-52.0)
MCHC 32.4 L g/dL
(33.0-37.0)
RDW 25.8 H %
(11.5-14.5)
Abs Immat Gran (auto) 0.1 H 10^3/uL
(0-0.05)
Absolute Neuts (auto) 7.4 H 10^3/uL
(1.4-6.5)
Absolute Lymphs (auto) 0.6 L 10^3/uL
(1.2-3.4)
Absolute Monos (auto) 1.0 H 10^3/uL
(0.1-0.6)
Neutrophils % 78.6 H %
(42.2-75.2)
Lymphocytes % 6.3 L %
(20.5-51.1)
Monocytes % 10.6 H %
(1.7-9.3)
BUN 39 H mg/dl
(9-20)
Total Bilirubin 1.6 H mg/dl
(0.2-1.3)
Alkaline Phosphatase 227 H U/L
(38-126)
08/12/24 16:01
08/12/24 16:01
Vital Signs
Initial and Last Documented VS:
Initial Vital Signs
Temp Pulse Resp BP Pulse Ox
98 F 60 16 112/64 100
08/12/24 15:45 08/12/24 15:45 08/12/24 15:45 08/12/24 15:45 08/12/24 15:45
Last Documented Vital Signs
Temp Pulse Resp BP Pulse Ox
98 F 62 16 117/70 97
08/12/24 15:45 08/12/24 17:55 08/12/24 17:55 08/12/24 17:55 08/12/24 17:55
[place];Karl Barajas PA-C - Last Filed: 08/12/24 20:25>
MDM/Problems Addressed
Differential Diagnosis Includes:
Leg swelling and calf pain. Consider volume overload versus DVT however unlikely as he is on Eliquis. 2 weeks ago patient had extended car trip from [place]. Is uncertain whether or not he was taking his Lasix at that time. He states he has not
missed any doses of his Eliquis however. Ultrasound of the legs pending to evaluate for DVT. BNP is higher than it has been. Chest x-ray pending. Patient does admit to taking his Lasix 80 mg twice a day over the past week without any significant
difference.
<Karl Barajas PA-C - Last Filed: 08/12/24 20:25>
*Critical Care Note
Total Time (30-74mins, 75-104mins- exclusive of procedures): Not Applicable
<Karl Barajas PA-C - Last Filed: 08/12/24 20:25>
Update Note
Update Note:
BNP elevated. Chest x-ray shows cardiomegaly with mild interstitial edema. Despite use of Lasix twice a day his legs continue to swell and cause pain. Venous ultrasound is negative for DVT. Suspect CHF. Lasix ordered. Admit to hospital
ED Attending Note
<Talia Rivas PA-C - Last Filed: 08/12/24 15:53>
-
Portions of this chart may have been created with voice recognition software.� Occasional wrong word or��sound alike� substitutions may have occurred due to the inherent limitations of voice recognition software.
Discharge Plan
Departure
Patient Disposition: Admit
Date of Disposition: 08/12/24
Time of Disposition: 20:24
Presentation/result/management discussed w/ accepting MD/DO: Hospitalist
Discharge Problem:
CHF (congestive heart failure)
Prescriptions:
No Action
mesalamine [Lialda] 1.2 GM tablet,delayed release (DR/EC)
4.8 g PO DAILY
Eliquis 5 MG tablet
5 mg PO BID
furosemide [Lasix] 40 mg Tablet
80 mg PO BID
therapeutic multivitamin Tablet
1 tab PO DAILY
acetaminophen [Tylenol 8 Hour] 650 mg Tablet Extended Release
1,300 mg PO [id number] PRN (Reason: mild pain)
potassium chloride 20 mEq Tablet Extended Release
20 meq PO BID
Jardiance 10 mg Tablet
10 mg PO DAILY
metoprolol succinate [Toprol XL] 25 mg tablet extended release 24 hr
25 mg PO BID Qty: 60 11RF
Referrals:
Mario Merchant MD [Family Provider] -
Interventions
Interventions:
*Risk Screen - Suicide Last Done: 08/12/24 15:45
*General Assessment Last Done: 08/12/24 15:45
*Neglect/Abuse Screening Last Done: 08/12/24 15:45
*ED- Fall Risk Assessment Last Done: 08/12/24 18:49
*ED COVID-19 Vaccine History Last Done: 08/12/24 18:49
ED- Pulmonary Assessment Last Done: 08/12/24 18:49
ED-Skin Assessment Last Done: 08/12/24 18:49
Discharge Date and Time
Print Language: TURKMEN
[2024-08-12 16:21] LABS: % Basophils 1.2 % (0-2); % Eosinophils 2.8 % (0-6); % Immature Granulocytes 0.5 % (0-0.5); % Lymphocytes 6.3 % (20.5-51.1); % Monocytes 10.6 % (1.7-9.3); % Neutrophils 78.6 % (42.2-75.2); Absolute Basophils 0.1 10^3/uL (0-0.2); Absolute Eosinophils 0.3 10^3/uL (0-0.7); Absolute Immature Granulocytes 0.1 10^3/uL (0-0.05); Absolute Lymphocytes 0.6 10^3/uL (1.2-3.4); Absolute Neutrophils 7.4 10^3/uL (1.4-6.5); Hematocrit 33.3 % (39.0-52.0); Hemoglobin 10.8 g/dL (13.0-18.0); Mean Corp Hgb Conc. 32.4 g/dL (33.0-37.0); Mean Corpuscular Hgb 27.8 pg (27.0-31.0); Mean Corpuscular Volume 85.6 fL (80.0-94.0); Nucleated Red Blood Cells % 0 % (-); Platelet Count 352 10^3/uL (130-400); Red Blood Cell Count 3.89 10^6/uL (4.70-6.10); Red Cell Dist. Width 25.8 % (11.5-14.5); White Blood Cell Count 9.4 10^3/uL (4.8-10.8)
[2024-08-12 16:30] LABS: NT-proBNP 4610 pg/ml
[2024-08-12 16:36] LABS: ALT (SGPT) 39 U/L (0-50); AST (SGOT) 55 U/L (17-59); Albumin 3.5 g/dl (3.5-5.0); Alkaline Phosphatase 227 U/L (38-126); Blood Urea Nitrogen 39 mg/dl (9-20); Calcium 8.9 mg/dl (8.4-10.2); Carbon Dioxide 25 mmol/L (22-30); Chloride 100 mmol/L (98-107); Glucose 89 mg/dl (70-99); Potassium 3.9 mmol/L (3.5-5.1); Sodium 138 mmol/L (135-145); Total Bilirubin 1.6 mg/dl (0.2-1.3); eGFR > 60.00
[2024-08-12 16:46] LABS: Anisocytosis 1+; Normal RBC Morphology No
[2024-08-12 16:47] LABS: Macrocytosis 1+
[2024-08-12 16:48] LABS: Hypochromasia 1+; Ovalocytes 1+
[2024-08-12 16:49] LABS: Polychromasia Slight
[2024-08-12 17:55] VITALS: BP 117/70
[2024-08-12 20:50] VITALS: BP 123/73
[2024-08-12] MEDS: LASIX 80 MG IV (20:55)
[2024-08-12 21:50] VITALS: BP 115/72
--- NOTE | 2024-08-12 21:54 | HPS.HSE ---
Addendum entered and electronically signed by Rex Woodward DO 08/12/24 23:40:
Patient seen and examined independently. Agree with findings and plan as set forth by ERIWN Whalen.
Patient is a 64y M with PMH significant for cardiomyopathy, HFmrEF, A-Fib and TAVR who presents to ED complaining of LE swelling, weakness and ambulatory dysfunction. Patient was hospitalized here in June for CHF and diuresed about 20 lbs at
that time. He states that he flew to [place] in July to purchase a vehicle. He drive back to [place] on 07/28 with few stops along the way. He admits to eating fast food during his trip for convenience. Patient drove to his home in [facility] (outside
of [place]). he noted discomfort in his feet, difficulty walking and swelling. He was seen at Urgent Care and then hospitalized at [facility] where he was diuresed for a few days.
Patient drove to [place] this AM (he is followed by Cardiology here) and presented to the ED.
Ass:
Acute on Chronic HFmrEF
LE Edema
Benign Hypertension
Aortic Valve Disease s/p AVR and then TAVR
Permanent Atrial Fibrillation
Ulcerative Colitis
Chronic Anemia
Plan:
Admit for further evaluation and treatment.
US negative for DVT in the ED.
IV diuresis with Lasix 40mg BID and follow daily weights, I/Os, etc.
Cardiology evaluation for additional recommendations.
Check ABIs.
Continue usual CV med regimen.
Education re: CHF, fluid and salt restrictions, etc.
Follow for clinical improvement.
Addendum entered and electronically signed by ERWIN Whalen 08/12/24 23:22:
#Bilateral great toe/second toes bluish in color unclear possible PAD/PVD
Will check bilateral arterial Dopplers and FARHEEN ultrasound
Original Note:
Family Physician
-
Family Physician: Mario Merchant
Chief Complaint
-
Bilateral leg edema, shortness of breath
History of Present Illness
64-year-old male complaining of bilateral lower extremity swelling that started on 07/30 and has been progressively worsening. He reports he flew down to [place] about a 4-hour flight did not get up and walk around he then drove an hour and a half to
buy a low rider truck. He states he rented a car and slept in the parking lot and then bought the truck in the a.m. while parked in the parking lot he states he ate fast food. He reports driving back from [place] on 07/28 with minimal breaks only to
stop at a gas station to get a set up snack and void. He had brief admission in [place] on was discharged after IV diuresis. He reports little improvement in symptoms he has been having trouble ambulating due to pain. He has +2 nonpitting
edema to bilateral feet just below legs with burst capillary vessels. His great toes and second toes are slight bluish in color, slightly cool and with less sensation he states.
The patient had recent admission 06/24 - 06/30/2024 with [facility], bilateral lower leg edema, progressive weight gain refractory to increase furosemide over the past couple months he was noted to have EF of 45 to 50%, severe TR severely dilated and
hypokinetic right ventricle. He had heart cath consistent with modestly elevated biventricular filling pressures he was treated with IV diuresis and lost 20 pounds during that admission. Metoprolol succinate 25 XL twice daily was added to his drug
regimen in place of metoprolol tartrate 50 mg twice daily. It was emphasized strict medication adherence and follow-up with cardiology. Patient has past medical history of chronic CHF reduced EF 45-50%, severe TR, aortic valvular disease, aortic
root dilation, status post AVR 2012 and TAVR in 2023, permanent A-fib, sinus bradycardia, permanent pacemaker, hyperbilirubinemia elevated alk phos, HTN�benign, HLD, ulcerative colitis, chronic back pain, chronic anemia microcytic/normocytic
Medical History
Past Medical History
Past Medical History: Reports Other (HFpEF; AFib; pacemaker in place; dilated aortic root; ulcerative colitis; hyperlipidemia)
Past Surgical History: Reports Other (open heart aortic valve replacement 2012; pacemaker implant 2021; TAVR 2023; right inguinal hernia repair 1993; L torn meniscus repair 2015)
Social History
Tobacco: Former Smoker (25 years 2-3 ppd quit 21 years ago)
Alcohol: Binge drinker (Patient drinks 4 beers every Sunday)
Drug: None
Personal: Single
Living: Alone
Employment: Retired
Family History
Family History: Other (Mother living healthy father living age 89 hypertension)
Allergies / Home Medications
Allergies reflects when Allergies were last updated in [facility].
Home Medications with original date entered in [facility]
Allergy/Medication List:
Allergies
Allergy/AdvReac Type Severity Reaction Status Date / Time
amoxicillin Allergy Unknown Verified 06/24/24 15:45
Home Medications
mesalamine 1.2 gram tablet,delayed release (Lialda) 4.8 g PO DAILY Gastrointestinal Issue 04/12/16
apixaban 5 mg tablet (Eliquis) 5 mg PO BID Blood Clot Prevention/Tx 12/24/20
acetaminophen 650 mg tablet,extended release (Tylenol 8 Hour) 1,300 mg PO [id number] PRN mild pain 06/24/24
empagliflozin 10 mg tablet (Jardiance) 10 mg PO DAILY Diabetes 06/24/24
furosemide 40 mg tablet (Lasix) 80 mg PO BID Fluid Retention/Swelling 06/24/24
potassium chloride 20 mEq tablet,extended release 20 meq PO BID Electrolyte Repletion 06/24/24
ascorbic acid (vitamin C) 1,000 mg tablet 1,000 mg PO DAILY 08/12/24
aspirin 81 mg tablet,delayed release (Zhao Low Dose Aspirin) 81 mg PO DAILY 08/12/24
metoprolol succinate 25 mg tablet,extended release 24 hr (Toprol XL) 50 mg PO BID Heart Failure 08/12/24
Review of Systems
-
History Source: Patient
A 12 point ROS was completed and negative except as noted: Yes
Constitutional: Reports Weight Gain; Denies Chills
EENT: Denies Sore Throat or Runny Nose
Respiratory: Reports Trouble Breathing (sob); Denies Cough
Cardiac: Denies Chest Pain, Diaphoresis or Palpitations
Abdomen/GI: Denies Abdominal Pain, Nausea, Vomiting, Diarrhea, Constipated, Bloody Stools or Black Stools
: Denies Dysuria, Frequency, Flank Pain, Incontinence, Difficulty Voiding, Urgency or Bleeding
Musculoskeletal: Reports Joint Pain and Edema (+2 nonpitting edema knees to feet with fine red rash just under skin likely capillary bursting due to edema, bilateral great toes and second toes slightly bluish and cold but with sensation)
Skin: Denies Itching or Rash
Neurological: Denies Dizzy or Headache
Endocrine: Reports No Symptoms
Hematologic/Lymphatic: Reports No Symptoms
Psych: Reports Calm
Physical Exam
Vital Signs
Vital Signs
Temp Pulse Resp BP Pulse Ox
98.2 F 62 10 123/73 98
08/12/24 20:50 08/12/24 21:15 08/12/24 21:15 08/12/24 20:55 08/12/24 20:50
Physical Exam
General: Comfortable, Conversant and Pain; No Fever or Chills
HEENT: NormoCephalic, Anicteric, Moist mucous membranes, PERRLA, [place] Conjunctivae and No Ptosis
Respiratory: Clear; No Wheezes, Rales or Rhonchi
Cardiac: S1/S2, Regular Rhythm, Murmur and Peripheral Edema (+2 nonpitting edema knees to feet with fine red rash just under skin likely capillary bursting due to edema, bilateral great toes and second toes slightly bluish and cold but with
sensation); No Rub or Gallop
GI: Soft, Non Tender, Non Distended, Normal Bowel Sounds and No Hepatosplenomegaly
Rectal: Deferred by Provider
Genito-urinary: Deferred by me
Musculoskeletal: No Clubbing, No Cyanosis, Edema, Left Lower Extremity (+2 nonpitting edema knees to feet with fine red rash just under skin likely capillary bursting due to edema, bilateral great toes and second toes slightly bluish and cold but
with sensation) and Edema, Right Lower Extremity (+2 nonpitting edema knees to feet with fine red rash just under skin likely capillary bursting due to edema, bilateral great toes and second toes slightly bluish and cold but with sensation); No
Edema, Left Upper Extremity or Edema, Right Upper Extremity
Skin: Warm and Dry; No Rash
Neuro: AO x 3, No Motor Deficits, Nonfocal/grossly intact, Cranial Nerves Intact and No Sensory Deficits; No Slurred Speech, Facial Droop, Tremors or Sedated
Psych: Calm
Laboratory Results
-
08/12/24 16:01
08/12/24 16:01
Laboratory Results
Total Bilirubin 1.6 mg/dl (0.2-1.3) H 08/12/24 16:01
AST 55 U/L (17-59) 08/12/24 16:01
ALT 39 U/L (0-50) 08/12/24 16:01
Alkaline Phosphatase 227 U/L (38-126) H 08/12/24 16:01
Data Reviewed
-
Lab Data: Labs Reviewed by me
Impression/Plan
-
Impression/plan:
Admit to telemetry
#Acute on chronic heart failure with reduced ejection fraction
BNP 4610 > 2160 on 06/24/2024
Wt 81.2Kg< 89.7kg june 2024
- -Intake and output, daily weights
-2 g sodium diet
-Continue Toprol XL 25 mg twice daily
-IV Lasix 80 mg given in ER, Iv lasix 40 mg bid ( patient on prior furosemide 80 mg twice daily)
- Consult [facility] cardiology
- Patient counseled on fluid restriction, salt restriction, binge drinking beer he stated he rather not live then not be able to drink I advised him to spread out his 12 drinks over 7 days versus over 3 however I did financial counselor him on cessation of
alcohol use and the damage it causes
CXR:
1. Severe cardiomegaly with suggestion of mild interstitial cardiogenic pulmonary edema.
2. Mildly decreased bilateral lung volumes with mild subsegmental atelectasis/scarring in the lower lungs.
3. Left-sided cardiac pacemaker in place.
4. Previous aortic valve replacement.
Peripheral vascular ultrasound: Negative DVT
#Binge alcohol use
Patient typically drinks 4 beers every Sunday last drink was on Sunday 2 days ago
- Patient counseled on fluid restriction, salt restriction, binge drinking beer he stated 'I rather not live then not be able to drink and eat how I want' I advised him to spread out his 12 drinks over 7 days versus over 3, however I did financial counselor him
on cessation of alcohol use and the damage it causes
-MSAS screen with protocol, iv thiamine folate, prn ativan
#HTN�benign
BP 123/73
-Continue Toprol XL 25 mg twice daily
#HLD
- Patient was placed on statin during recent admission did not like how he felt therefore stopped
#Aortic valvular disease/severe TR
#History of aortic root dilation
#Status-post open heart valve replacement 2012
#Status-post TAVR 2023, prior AVR 2012
- - Follows cardiology team at [facility].
2D echo 06/24/2024:
EF 45-50%, moderate LVH, RV pressure/volume overload
Septal hypokinesis/contraction abnormality with severe inferoapical hypokinesis
Thickened mitral leaflets, mitral annular calcification, mild regurgitation and severely dilated left atrium
TAVR in SAVR, peak/mean gradient 12/6 mmHg, trace aortic regurgitation
Severely dilated and hypokinetic right ventricle with pacing wires
Severe tricuspid regurgitation with marked right atrial dilatation,
PASP 56 mmHg
The aorta at the sinuses of Valsalva is 4.5 cm
#PULM HTN
#Permanent atrial fibrillation
-Continue metoprolol XL 25 mg twice daily, Eliquis 5 mg twice daily
#Sinus bradycardia
Status-post pacemaker placement
#Normocytic anemia
#Microcytic anemia/Iron deficiency anemia new Dx June 2024
#History of ULCERATIVE COLITIS without flare
Iron 23, TIBC 6%June admission
- Received 5 days of IV iron
-Recommend outpatient colonoscopy
- Continue Lialda
#Hyperbilirubinemia
#Elevated alkaline phosphatase
- Of unclear etiology.
- AST 227 > was 177 on 06/25/2024
#Chronic back pain
- Continue acetaminophen as needed.
DVT prophylaxis
- Continue Eliquis 5 mg twice daily
DNR per patient states his emergency contact is now his brother Ildefonso Kelly instead of his mother due to her age
[2024-08-13] VITALS (9 sets, daily range): BP systolic 99–124; BP diastolic 53–73; BMI 25.6
[2024-08-13] MEDS: THIAMINE INJECTION 200 MG IV ×4 (01:59→23:13)
[2024-08-13 02:35] LABS: INR 1.64; PT 19.6 Sec (11.4-14.6)
[2024-08-13 02:36] LABS: APTT 47.5 Sec (23.4-35.0)
[2024-08-13 02:41] LABS: GGTP 217 U/L (15-73); Magnesium 2.3 mg/dl (1.6-2.3); Phosphorus 4.9 mg/dl (2.5-4.5)
[2024-08-13 02:48] LABS: B-Hydroxybutyrate 2.56 mmol/L (0.02-0.27)
--- NOTE | 2024-08-13 02:49 | PTCARENOTE ---
pt arrived from ED via stretcher accompanied by ED staff. pt ambulated from stretcher to bed with RW with standby assist. VSS, no complaints at this time. call anguiano within reach, will continue to monitor.
[2024-08-13 03:13] LABS: Alcohol None Detected
[2024-08-13 04:34] LABS: Urine Albumin Negative (Neg - Trace); Urine Bilirubin Negative (Negative); Urine Character Clear (Clear); Urine Color Yellow; Urine Glucose Negative (Negative); Urine Ketone 1+ (Negative); Urine Leukocyte Negative (Negative); Urine Nitrite Negative (Negative); Urine Occult Blood Negative (Negative); Urine Specific Gravity 1.015 (<1.030); Urine Urobilinogen Negative (Neg - 1+)
[2024-08-13 05:15] LABS: Amphetamines Negative (Negative); Barbiturates Negative (Negative); Benzodiazepines Negative (Negative); Buprenorphine Negative (Negative); Cocaine Negative (Negative); Marijuana Negative (Negative); Methadone Negative (Negative); Methamphetamines Negative (Negative); Opiates Negative (Negative); Phencyclidine Negative (Negative); Tricyclic Antidepressants Negative (Negative)
[2024-08-13 07:26] LABS: % Basophils 1.2 % (0-2); % Immature Granulocytes 0.7 % (0-0.5); % Lymphocytes 9.3 % (20.5-51.1); % Monocytes 11.3 % (1.7-9.3); % Neutrophils 72.5 % (42.2-75.2); Absolute Basophils 0.1 10^3/uL (0-0.2); Absolute Eosinophils 0.3 10^3/uL (0-0.7); Absolute Lymphocytes 0.6 10^3/uL (1.2-3.4); Absolute Monocytes 0.7 10^3/uL (0.1-0.6); Absolute Neutrophils 4.4 10^3/uL (1.4-6.5); Hematocrit 32.5 % (39.0-52.0); Hemoglobin 10.3 g/dL (13.0-18.0); Mean Corp Hgb Conc. 31.7 g/dL (33.0-37.0); Mean Corpuscular Hgb 27.4 pg (27.0-31.0); Mean Corpuscular Volume 86.4 fL (80.0-94.0); Nucleated Red Blood Cells % 0 % (-); Platelet Count 309 10^3/uL (130-400); Red Blood Cell Count 3.76 10^6/uL (4.70-6.10); Red Cell Dist. Width 25.9 % (11.5-14.5)
[2024-08-13 07:52] LABS: ALT (SGPT) 29 U/L (0-50); AST (SGOT) 35 U/L (17-59); Alkaline Phosphatase 187 U/L (38-126); Blood Urea Nitrogen 34 mg/dl (9-20); Calcium 8.8 mg/dl (8.4-10.2); Carbon Dioxide 23 mmol/L (22-30); Chloride 104 mmol/L (98-107); Estimated Creatinine Clearance 68 ml/min; Glucose 69 mg/dl (70-99); Potassium 3.7 mmol/L (3.5-5.1); Sodium 137 mmol/L (135-145); Total Bilirubin 1.4 mg/dl (0.2-1.3); Total Protein 5.9 g/dl (6.3-8.2); eGFR > 60.00
--- NOTE | 2024-08-13 08:41 | W.PN.HOSP.TC ---
Addendum entered and electronically signed by Huber Roger MD 08/13/24 22:39:
Attending Addendum-
I saw and evaluated the patient. I reviewed the resident�s note and agree with findings and plan as documented in the resident�s note. Sub: feels that swelling has decreased but more to go. Denies SOB CP palps. Full 12 point ROS reviewed and
negative except as documented Exam: Vitals reviewed in chart GEN-NAD heart RRR 06/12 SM @ RUSB abd obese soft NT ND LE 2+ pitting edema
#Acute on chronic heart failure mid-range ejection fraction exacerbation
- Intake and output, daily weights fluid restrict
-Continue Toprol XL 25 mg twice daily
-increase IV Lasix to 80 BID (patient on prior furosemide 80 mg twice daily)
- echo 06/2024- ef 45-50%
- cards input appreciated
-cont jardiance->farxiga
#AUD
-MSAS screen with protocol, iv thiamine folate, prn ativan
#HTN�benign
-Continue Toprol XL 25 mg twice daily
#Aortic valvular disease/severe TR
#History of aortic root dilation
#Status-post TAVR 2023, prior AVR 2012
- Follows cardiology team at [facility].
#PULM HTN
#Permanent atrial fibrillation
-Continue metoprolol XL 25 mg twice daily, Eliquis 5 mg twice daily
# SSS
Status-post pacemaker placement
#Microcytic anemia/Iron deficiency anemia new June 2024
#History of ULCERATIVE COLITIS without flare- Continue mesalamine
#Chronic back pain
- Continue acetaminophen as needed.
DVT prophylaxis
- Continue Eliquis 5 mg twice daily
CODE- full->DNR
PCP-Blore
ACP
Patient consented to discuss, was alone, time spent explanation of advance directives, changes in health status, patient�s health care wishes if the patient becomes unable to make health decisions, goals of care, code status, and prognosis 'If i
cant live with good QOL i dont want to live at all' change to DNR- 16 minutes
Time spent coordinating care, review of plan of care with resident, personally reviewed previous records in EMR, med rec, labs, radiology, d/w nursing, total time documented is exclusive of any additional time listed that was spent in advance care
planning discussion -�53 minutes
Original Note:
Today's Communication/Plan
-
Continue diuresis
Cardiology consult
Assessment / Plan
Assessment / Plan
Impression
Patient is a 64-year-old male with past medical history of cardiomyopathy, heart failure with mildly reduced ejection fraction, atrial fibrillation, bradycardia with pacemaker in place, history of TAVR and ulcerative colitis. Presented in emergency
with bilateral swelling of legs. Working diagnosis acute exacerbation of heart failure.
Assessment and plan
1. Acute exacerbation of heart failure with mildly reduced ejection fraction
History of chronic heart failure with mildly reduced ejection fraction of 45 to 45%
History of bioprosthetic aortic valve replacement in 2012 and TAVR in 2023
Presented with increased work of breathing and bilateral lower extremity edema
Received 80 mg of Lasix in ER-currently breathing comfortably on room air
Last echo June 2024, ejection fraction 40 to 45% weight 188 pounds, which is below his baseline of 198
Continue Lasix 40 mg twice daily
Regarding GDMT, patient is not on any JOEY/ARB/aldosterone receptor agonist due to DOMI on previous admission
On [facility], metoprolol succinate extended release
Continue to monitor daily weights, input and output
Cardiology recs appreciated
2. Bilateral lower extremity edema
Started post long trip to [place], with minimal breaks, and salty food
Patient remained compliant to his Lasix dose of 80 mg twice daily
Bilateral pitting edema of legs with red rash on both legs along with itching, possibly due to fluid retention
No DVT --confirmed with peripheral vascular ultrasound
Continue diuresis
3. Permanent atrial fibrillation
Past history of paroxysmal atrial fibrillation and flutter-had multiple cardioversions
And permanent atrial fibrillation from a year
On rate control with metoprolol and anticoagulation with Eliquis
Heart rate stable
4.Alcohol use disorder
Drinks 4 beers every Sunday
Does not want to quit
Patient on MSAS protocol-last drink 2 days ago
Continue to monitor for any withdrawal signs
Other medical conditions.
Ulcerative colitis-stable on mesalamine
Chronic anemia-hemoglobin 10.3-continue to monitor
Essential hypertension-continue home medications
Hyperlipidemia-patient practicing lifestyle modifications, discontinued atorvastatin
DVT prophylaxis-Eliquis
CODE STATUS-DNR
Anticipated Discharge: 24 - 48 hours
Subjective/Interval History
-
Date of Service: August 13, 2024
Patient feels well, denies any shortness of breath, orthopnea, abdominal pain, fever or any other issues.
Feels a little bit overwhelmed
Objective Data
-
Labs:
Laboratory Results
08/13/24 08/13/24
02:09 06:40
WBC 6.0
Hgb 10.3 L
Hct 32.5 L
Plt Count 309
PT 19.6 H
INR 1.64
APTT 47.5 H
Sodium 137
Potassium 3.7
Chloride 104
Carbon Dioxide 23
BUN 34 H
Creatinine 1.2
Glucose 69 L
Calcium 8.8
Total Bilirubin 1.4 H
AST 35
ALT 29
Alkaline Phosphatase 187 H
Vital Signs:
Vital Signs
Temp Pulse Resp BP Pulse Ox
97.9 F 64 16 110/53 100
08/13/24 03:42 08/13/24 03:42 08/13/24 03:42 08/13/24 03:42 08/13/24 03:42
I&O
08/12/24 08/13/24 08/14/24
06:59 06:59 06:59
Intake Total 600 / 600
Output Total 1175 / 1175
Balance -575 / -575
Review of Systems
-
All other systems: Reviewed and negative
Physical Exam
-
General: Well Developed, Well Nourished and Other (Sitting propped up in bed, breathing on room air, no increased work of breathing)
HEENT: Normocephalic, Atraumatic, Moist Mucous Membranes and Other (No JVD)
Respiratory: Decreased Breath Sounds (Bilaterally at the lung bases, no wheezes, rales or rhonchi)
Cardiac: Regular Rhythm, JVD (No JVD) and Other (No murmur rub or gallop)
GI: Soft, Nontender and Normal Bowel Sounds
Musculoskeletal: Edema, Right Lower Extrem, Edema, Left Lower Extrem and Other (Nonpitting edema, bilateral red rash in both legs, bluish big toe and second toe on both feet, arthritic changes in both hands)
Skin: Warm and Dry
Neuro: Awake, Oriented and No Motor Deficits
Psych: Calm
[2024-08-13] MEDS: LASIX 40 MG IV (08:44)
[2024-08-13] MEDS: FARXIGA 10 MG PO (08:47)
[2024-08-13] MEDS: VITAMIN C 1000 MG PO (08:47)
[2024-08-13] MEDS: KCL 20 MEQ PO ×2 (08:47→19:31)
[2024-08-13] MEDS: FOLVITE 1 MG PO (08:47)
[2024-08-13] MEDS: ELIQUIS 5 MG PO ×2 (08:48→19:30)
[2024-08-13] MEDS: TOPROL XL PO (08:48)
[2024-08-13] MEDS: ASPIR LOW (ENTERIC COATED) 81 MG PO (08:48)
--- NOTE | 2024-08-13 09:02 | CON.CAR ---
Addendum entered and electronically signed by Clark Ibarra MD 08/13/24 12:09:
I saw and examined the patient.
The WORKERS' COMPENSATION CLAIMS EXAMINER or PA's note was reviewed and I agree with the note.
Comment: General: Well developed, well nourished in NAD.
Neck: Supple, no JVD, HJR, carotids +2 B/L, no bruits bilaterally.
Heart: Non displaced PMI, RRR, no murmurs, No S3, S4, no rubs.
Lungs: Scattered rhonchi at the bases
Extremities: Moderate lower extremity edema bilaterally.
Neuro: Grossly nonfocal, awake, alert and oriented x3.
Mario has a history of chronic systolic CHF and ejection fraction 45 to 50% on echo in June 2024, status post bioprosthetic AVR in 2012 then in valve TAVR are in 2023, permanent A-fib on chronic Eliquis, status post Medtronic pacer. He was admitted
with CHF in June 2024 in August 2024. He flew to [place] to buy a truck and drove home. He reports eating fast food and medical noncompliance on the way home. His lower extremity edema was so painful he used crutches. He was then admitted in [place]
with CHF. He Felicia drove to [place] and is admitted for CHF. Will increase Lasix to 80 mg IV twice daily as he is on 80 mg p.o. twice daily at home. Will need to follow renal function closely with creatinine of 1.2.
Original Note:
Consultation
Consultation Request
Date/Time Consultation Requested: 08/12/24 at 2253
Date/Time Consultation Performed: 08/13/24 at 0937
Requesting Provider: Dr. Roger
Performing Provider: Dr. Ibarra
Reason for Consultation: Acute HF, sev TR
Medical History
-
History of Present Illness:
Patient came to the ER yesterday with increased SOB and was admitted with acute HF and cardiology is now consulted. Patient used to follow with Dr. Bellamy, but moved from the area and started to follow at [facility] and had a tissue AVR there in 2012, he
had nonobstructive CAD at that time. Patient then switched to [facility] and had a PPM placed for bradycardia 02/2022. Patient reports he was recommended a valve in valve TAVR that was performed 08/2023 and at that time he had TR, but there was a
thought that his TR would get better with TAVR. Patient says that his TR never got any better and so he decided to come back to [facility] 06/2024 to re-establish care with our group. Patient was diuresed during his admission for 14 lbs and had a d/c
weight of 197 lbs on 06/30/24. Patient was seen in the office 07/02/24 and was taking Lasix 80 mg PO BID. Patient is compliant with daily weights and weight was 194 to 197 lbs following d/c, then patient took a one-way flight to [place] to buy a truck
07/28/24 and drove himself home in the truck. He reports eating fast food and medication noncompliance in that time. When he returned home he was ambulating with crutches due to painful LE edema and went to an urgent care who referred him to a
hospital in [place] and he was admitted from 08/07/24 until 08/09/24 with acute HF. Patient says he has continued to take Lasix 80 mg PO BID since then, but has not been as good about recording weights and overall has not felt better which resulted in
him bringing himself back to [facility], patient lives 1 hr 45 min from this hospital. Weight on admission was 188 lbs which is below previous dry weight but pro-BNP 4610 is higher than previous. Patient is not sure if he has lost any caloric weight and
he thinks he has been eating like normal. No chest pain.
PM:
Recent admission for acute HF to a hospital in [place], [place] 08/07/24 until 08/09/24
Recent admission for acute HF to [facility] 06/24/24 until 06/30/24
Chronic HFmrEF
NICM EF 45-50% by echo 06/24/24
Aortic valve disease status
s/p bioprosthetic AVR #27 Berry-Carcamo at [facility] 2012
then s/p valve in valve TAVR at [facility] 08/2023
Permanent Afib
Chronic Eliquis OAC
s/p Medtronic PPM place at [facility] 02/2022
Nonobstructive CAD per cath 05/2012
Past Medical History
Past Medical History: Other (As above)
Past Surgical History: Other (Bioprosthetic AVR at [facility] in 2012 and then TAVR at [facility] in 08/2023, pacemaker at [facility] 02/2022, torn meniscus repair 2015, jaw surgery , right inguinal hernia repair 1993)
Social History
Tobacco: Former Smoker (Quit 20 years ago)
Alcohol: Occasional (A beer a couple times a week)
Living: Alone
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
Family History
Family History: Other (Father with hypertension, CAD)
Allergies / Home Medications
Allergy/AdvReac Type Severity Reaction Status Date / Time
amoxicillin Allergy Unknown Verified 06/24/24 15:45
�Medication �Instructions �Recorded �Confirmed �Type
mesalamine 1.2 gram tablet,delayed 4.8 g PO DAILY Gastrointestinal 04/12/16 08/12/24 History
release (Lialda) Issue
apixaban 5 mg tablet (Eliquis) 5 mg PO BID Blood Clot 12/24/20 08/12/24 History
Prevention/Tx
acetaminophen 650 mg 1,300 mg PO [id number] PRN mild pain 06/24/24 08/12/24 History
tablet,extended release (Tylenol 8
Hour)
empagliflozin 10 mg tablet 10 mg PO DAILY Diabetes 06/24/24 08/12/24 History
(Jardiance)
furosemide 40 mg tablet (Lasix) 80 mg PO BID Fluid 06/24/24 08/12/24 History
Retention/Swelling
potassium chloride 20 mEq 20 meq PO BID Electrolyte Repletion 06/24/24 08/12/24 History
tablet,extended release
ascorbic acid (vitamin C) 1,000 mg 1,000 mg PO DAILY 08/12/24 08/12/24 History
tablet
aspirin 81 mg tablet,delayed 81 mg PO DAILY 08/12/24 08/12/24 History
release (Zhao Low Dose Aspirin)
metoprolol succinate 25 mg 50 mg PO BID Heart Failure 08/12/24 08/12/24 History
tablet,extended release 24 hr
(Toprol XL)
Review of Systems
-
History Source: Patient
All other systems: Negative unless noted
Physical Exam
Vital Signs
Temp Pulse Resp BP Pulse Ox
98 F 60 18 99/58 97
08/13/24 07:57 08/13/24 08:48 08/13/24 07:57 08/13/24 08:48 08/13/24 07:57
GEN: NAD. AAOx3
HEENT: MMM
LUNGS: RA. Few bibasilar rales without wheeze
CV: V paced on tele. Reg, 04/14 syst LSB, S3+
ABD: ND
EXT: +1 hard, nonpitting B/L malleolar edema
NEURO: Gross non-focal
SKIN: No rash
Lab Results
08/13/24 06:40
08/13/24 06:40
Zfi-I-Ynioxzjtysk Pept 4610 pg/ml 08/12/24 16:01
Impression / Plan
-
PCP: Dr. Merchant
Primary metrologist: previously Dr. Josh Prater at [facility] and now back to Dr. Bellamy
Impression:
Admitted with acute HF 08/12/24
Recent admission for acute HF to a hospital in [place], [place] 08/07/24 until 08/09/24
Recent admission for acute HF to [facility] 06/24/24 until 06/30/24
Acute on chronic HFmrEF
NICM EF 45-50% by echo 06/24/24
Aortic valve disease status
s/p bioprosthetic AVR #27 Berry-Carcamo at [facility] 2012
then s/p valve in valve TAVR at [facility] 08/2023
Permanent Afib
Chronic Eliquis OAC
s/p Medtronic PPM place at [facility] 02/2022
Nonobstructive CAD per cath 05/2012
SAMARIA 07/2012: EF 45%
Echo 01/2017, EF 50 to 55%, stable AVR, mean gradient 11
Echo 01/2019: EF 50-55%, stable AVR, mean gradient 6, PAP 34-39
Echo 12/17/20: EF 50 to 55%, mod LVH, mildly dilated RV with normal systolic function, severe LAE, well-seated bioprosthetic AV peak/mean 15/9 mmHg, mild to mod TR, PAP 43 to 48 mmHg, prox ascending aorta 4.5 cm
Echo 06/24/24: EF 45-50%, septal hypokinesis/contraction abnormality with severe inferoapical hypokinesis, mild MR, TAVR in SAVR peak/mean 12/6 mmHg with trace aortic regurgitation that could be underestimated due to acoustic shadowing, severely
dilated and hypokinetic RV with pacing wires identified and evidence of severe TR with marked RA dilatation
RHC 06/24/2024: RA 23, PA 55/20, PCWP 22, CO 4.9, CI 2.2
Plan:
-Patient came to the ER yesterday with increased SOB and was admitted with acute HF and cardiology is now consulted. Patient used to follow with Dr. Bellamy, but moved from the area and started to follow at [facility] and had a tissue AVR there in 2012,
he had nonobstructive CAD at that time. Patient then switched to [facility] and had a PPM placed for bradycardia 02/2022. Patient reports he was recommended a valve in valve TAVR that was performed 08/2023 and at that time he had TR, but there was a
thought that his TR would get better with TAVR. Patient says that his TR never got any better and so he decided to come back to [facility] 06/2024 to re-establish care with our group. Patient was diuresed during his admission for 14 lbs and had a d/c
weight of 197 lbs on 06/30/24. Patient was seen in the office 07/02/24 and was taking Lasix 80 mg PO BID. Patient is compliant with daily weights and weight was 194 to 197 lbs following d/c, then patient took a one-way flight to [place] to buy a truck
07/28/24 and drove himself home in the truck. He reports eating fast food and medication noncompliance in that time. When he returned home he was ambulating with crutches due to painful LE edema and went to an urgent care who referred him to a
hospital in [place] and he was admitted from 08/07/24 until 08/09/24 with acute HF. Patient says he has continued to take Lasix 80 mg PO BID since then, but has not been as good about recording weights and overall has not felt better which resulted in
him bringing himself back to [facility], patient lives 1 hr 45 min from this hospital. Weight on admission was 188 lbs which is below previous dry weight but pro-BNP 4610 is higher than previous. Patient is not sure if he has lost any caloric weight and
he thinks he has been eating like normal. No chest pain.
-Check ECG, no ECG checked so far this admission for acute HF. Cont on tele
-Cre 1.3 on admission and now 1.2 on labs reviewed by me. Patient has had DOMI during previous admission with IV diuresis.
-Patient had RHC 06/26/24 and PCWP was 22 mmHg which correlated with a weight of 208 lbs. Patient now weighs 188 lbs on 08/13/24
-Lasix 40 mg IV BID ordered and will increase to 80 mg IV BID starting 08/13/24 PM. Patient was taking Lasix 80 mg PO BID prior to admission
-EF 45-50% by echo 06/24/24. Consider repeating echo given this is his 3rd HF admission in 2 months and to reassess TR and right heart.
-Echo noted above with severe TR. Patient reports TR seemed to be new after PPM and there was a thought by his team at [facility] that the TR would improve with TAVR, but it never did.
-Outpatient dose of Toprol XL 50 mg BID has been continued
-Patient was not taking JOEY/ARB/ARNI/aldosterone antagonist due to DOMI on previous admission. We should try to add losartan 25 mg daily this admission
-Outpatient dose of Jardiance 10 mg daily changed to Farxiga 10 mg daily due to formulary changes at , but will resume Jardiance at d/c.
-TAVR in SAVR with trace aortic regurgitation on echo.
-Patient with permanent Afib. No previous attempts at AAD or ablation as far as patient knows.
-Outpatient dose of Eliquis 5 mg BID (age 64, wt 85.457 kg, Cre 1.2) was continued
-LDL 50 last admission and patient is not chronically on statin.
--- NOTE | 2024-08-13 13:51 | CM ---
Patient seen bedside, initial assessment completed. Patient is a 64y M with PMH significant for cardiomyopathy, HFmrEF, A-Fib and TAVR who presents to ED complaining of LE swelling, weakness and ambulatory dysfunction.
Patient resides alone in a single story home- 1 step to enter. Independent w/ ambulating, no device required. Independent w/ ADLs. Has grab bar and shower chair in the home. No SNF/HC hx reported.
Address, points of contact and insurance verified
PCP: Mario Merchant
Pharmacy: [facility]
Therapy assessed patient, recommending home PT at d/c
Plan: Home w/ HH
[2024-08-13] MEDS: LASIX 80 MG IV (16:59)
[2024-08-13] MEDS: TOPROL XL 50 MG PO (19:34)
[2024-08-14] VITALS (7 sets, daily range): BP systolic 109–123; BP diastolic 64–73; PULSE 82; BMI 25.0
[2024-08-14] MEDS: THIAMINE INJECTION 200 MG IV ×3 (08:27→23:07)
[2024-08-14] MEDS: TOPROL XL 50 MG PO ×2 (08:27→20:04)
[2024-08-14] MEDS: LASIX 80 MG IV ×2 (08:28→15:09)
[2024-08-14] MEDS: KCL 20 MEQ PO ×2 (08:32→20:03)
[2024-08-14] MEDS: FARXIGA 10 MG PO (08:32)
[2024-08-14] MEDS: FOLVITE 1 MG PO (08:32)
[2024-08-14] MEDS: VITAMIN C 1000 MG PO (08:32)
[2024-08-14] MEDS: ASPIR LOW (ENTERIC COATED) 81 MG PO (08:32)
[2024-08-14] MEDS: ELIQUIS 5 MG PO ×2 (08:33→20:04)
--- NOTE | 2024-08-14 08:36 | W.PN.HOSP.TC ---
Addendum entered and electronically signed by Huber Roger MD 08/14/24 23:11:
Attending Addendum-
I saw and evaluated the patient. I reviewed the resident�s note and agree with findings and plan as documented in the resident�s note. Sub: Feels good.Denies SOB CP palps PND orthopnea. Full 12 point ROS reviewed and negative except as documented
Exam: Vitals reviewed in chart GEN-NAD heart RRR 06/12 SM @ RUSB lungs crackles at abses abd obese soft NT ND LE 2+ pitting edema
#Acute on chronic heart failure mid-range ejection fraction exacerbation
- Intake and output, daily weights fluid restrict - down 2 kg
-Continue Toprol XL 25 mg twice daily
- cont IV Lasix to 80 BID (patient on prior furosemide 80 mg twice daily)
- transition to PO lasix in am
- echo 06/2024- ef 45-50%
- cards input appreciated
- cont jardiance->farxiga
- add spironolactone
#AUD
-MSAS protocol-0,
-iv thiamine folate, prn ativan
# Tobacco Abuse
- advised to quit
#HTN�benign
-Continue Toprol XL 25 mg twice daily
#Aortic valvular disease/severe TR
#History of aortic root dilation
#Status-post TAVR 2023, prior AVR 2012
- Follows cardiology team at [facility]
#PULM HTN
#Permanent atrial fibrillation
-Continue metoprolol XL 25 mg twice daily, Eliquis 5 mg twice daily
# SSS
- has pacemaker
- increase basal rate
#Microcytic anemia/Iron deficiency anemia new Dx June 2024
#History of ULCERATIVE COLITIS without flare- Continue mesalamine
#Chronic back pain
- Continue acetaminophen as needed.
DVT prophylaxis
- Continue Eliquis 5 mg twice daily
CODE- full->DNR
PCP-[facility]
Dispo - DC home in am
Time spent coordinating care, review of plan of care with resident, personally reviewed records in EMR, med rec, consults, notes, labs, radiology, d/w nursing � 51 mins
Original Note:
Today's Communication/Plan
-
Continue diuresis
Follow-up CMP
Assessment / Plan
Assessment / Plan
Impression
Patient is a 64-year-old male with past medical history of cardiomyopathy, heart failure with mildly reduced ejection fraction, atrial fibrillation, bradycardia with pacemaker in place, history of TAVR and ulcerative colitis. Presented in emergency
with bilateral swelling of legs. Working diagnosis acute exacerbation of heart failure.
Assessment and plan
1. Acute exacerbation of heart failure with mildly reduced ejection fraction
History of chronic heart failure with mildly reduced ejection fraction of 45 to 45%
History of bioprosthetic aortic valve replacement in 2012 and TAVR in 2023
Presented with increased work of breathing and bilateral lower extremity edema
Received 80 mg of Lasix in ER-currently breathing comfortably on room air
Last echo June 2024, ejection fraction 40 to 45% weight 188 pounds, which is below his baseline of 198
Currently on 80 mg Lasix IV twice daily
Regarding GDMT, patient is not on any JOEY/ARB/aldosterone receptor agonist due to DOMI on previous admission
[facility], metoprolol succinate extended release
Continue to monitor daily weights, input and output
Cardiology recs appreciated
2. Bilateral lower extremity edema
Started post long trip to [place], with minimal breaks, and salty food
Patient remained compliant to his Lasix dose of 80 mg twice daily
Bilateral pitting edema of legs with red rash on both legs along with itching, possibly due to fluid retention
No DVT --confirmed with peripheral vascular ultrasound
Continue diuresis
3. Permanent atrial fibrillation
Past history of paroxysmal atrial fibrillation and flutter-had multiple cardioversions
Permanent atrial fibrillation from a year
On rate control with metoprolol and anticoagulation with Eliquis
Heart rate stable
4.Alcohol use disorder
Drinks 4 beers every Sunday
Does not want to quit
Patient on MSAS protocol-last drink 2 days ago
Continue to monitor for any withdrawal signs
Other medical conditions.
Ulcerative colitis-stable on mesalamine
Chronic anemia-hemoglobin 10.3-continue to monitor
Essential hypertension-continue home medications
Hyperlipidemia-patient practicing lifestyle modifications, discontinued atorvastatin
DVT prophylaxis-Eliquis
CODE STATUS-DNR
Anticipated Discharge: Within 24 hours
Subjective/Interval History
-
Date of Service: August 14, 2024
Still complains of some pain in the legs, improved than yesterday, breathing fine and slept well
Objective Data
-
Labs:
Laboratory Results
08/14/24
08:13
WBC Pending
Hgb Pending
Hct Pending
Plt Count Pending
Sodium Pending
Potassium Pending
Chloride Pending
Carbon Dioxide Pending
BUN Pending
Creatinine Pending
Glucose Pending
Calcium Pending
Total Bilirubin Pending
AST Pending
ALT Pending
Alkaline Phosphatase Pending
Vital Signs:
Vital Signs
Temp Pulse Resp BP Pulse Ox
97.3 F 66 16 123/64 99
08/14/24 03:10 08/14/24 03:10 08/14/24 03:10 08/14/24 03:10 08/14/24 03:10
I&O
08/13/24 08/14/24 08/15/24
06:59 06:59 06:59
Intake Total 600 / 600 1320 / 1320
Output Total 1175 / 1175 1890 / 1890
Balance -575 / -575 -570 / -570
Review of Systems
-
All other systems: Reviewed and negative
Physical Exam
-
General: Well Developed, Well Nourished, No Apparent Distress, Comfortable and Conversant
HEENT: Normocephalic, Atraumatic and Moist Mucous Membranes
Respiratory: Clear to Auscultation, Crackles (left lower base of lung) and Other (No wheezes rales or rhonchi)
Cardiac: Irregular Rhythm and Other (Heart rate 66, irregularly irregular rhythm, no murmurs, rubs or gallops)
GI: Soft, Nontender, Nondistended and Normal Bowel Sounds
Musculoskeletal: No Clubbing, No Cyanosis, Edema, Right Lower Extrem, Edema, Left Lower Extrem and Other (Improved than yesterday, pedal pulses and posterior tibial pulses palpable)
Skin: Warm and Dry
Neuro: Awake, Oriented and No Motor Deficits
Psych: Calm
[2024-08-14 09:01] LABS: Hematocrit 33.2 % (39.0-52.0); Hemoglobin 10.6 g/dL (13.0-18.0); Mean Corp Hgb Conc. 31.9 g/dL (33.0-37.0); Mean Corpuscular Hgb 27.7 pg (27.0-31.0); Mean Corpuscular Volume 86.7 fL (80.0-94.0); Mean Platelet Volume 8.7 fL (7.4-10.4); Platelet Count 345 10^3/uL (130-400); Red Blood Cell Count 3.83 10^6/uL (4.70-6.10); Red Cell Dist. Width 25.6 % (11.5-14.5); White Blood Cell Count 7.2 10^3/uL (4.8-10.8)
[2024-08-14 09:56] LABS: ALT (SGPT) 28 U/L (0-50); AST (SGOT) 35 U/L (17-59); Albumin 3.3 g/dl (3.5-5.0); Alkaline Phosphatase 205 U/L (38-126); Blood Urea Nitrogen 28 mg/dl (9-20); Calcium 8.8 mg/dl (8.4-10.2); Carbon Dioxide 27 mmol/L (22-30); Chloride 103 mmol/L (98-107); Estimated Creatinine Clearance 68 ml/min; Glucose 146 mg/dl (70-99); Magnesium 2.2 mg/dl (1.6-2.3); Potassium 3.7 mmol/L (3.5-5.1); Sodium 140 mmol/L (135-145); Total Bilirubin 1.1 mg/dl (0.2-1.3); Total Protein 6.4 g/dl (6.3-8.2); eGFR > 60.00
[2024-08-14 11:07] LABS: % Eosinophils 3.9 % (0-6); % Immature Granulocytes 0.6 % (0-0.5); % Lymphocytes 8.8 % (20.5-51.1); % Monocytes 10.3 % (1.7-9.3); % Neutrophils 75.4 % (42.2-75.2); Absolute Basophils 0.1 10^3/uL (0-0.2); Absolute Eosinophils 0.3 10^3/uL (0-0.7); Absolute Lymphocytes 0.6 10^3/uL (1.2-3.4); Absolute Monocytes 0.7 10^3/uL (0.1-0.6); Absolute Neutrophils 5.4 10^3/uL (1.4-6.5); Nucleated Red Blood Cells % 0 % (-)
[2024-08-14] MEDS: ALDACTONE 12.5 MG PO (15:10)
--- NOTE | 2024-08-14 16:40 | W.PN.CARDCBS ---
Addendum entered and electronically signed by Calin Curiel MD 08/14/24 19:05:
64-year-old man admitted with acute heart failure with mildly reduced EF, with recent hospital stay in June for the same.
PMH: Bioprosthetic AVR at [facility] 2012, valve in valve TAVR August 2023, permanent A-fib, Medtronic pacemaker, nonobstructive CAD
Current meds: Apixaban 5 mg twice daily, aspirin 81 mg daily, dapagliflozin 10 mg a day, mesalamine, metoprolol ER 50 twice daily, potassium 20 twice daily, folic acid, thiamine, furosemide 80 mg IV twice daily
116/69, pulse 61, respiratory 18, afebrile, weight is 83.5 kg, down 1.9 kg, weight was 89.8 kg at discharge June 30, intake and output -1.2 L, no distress, head neck exam unremarkable, lungs are clear, cardiac exam with regular rate and rhythm,
abdomen benign, not much edema
Hemoglobin 10.3, potassium is 3.7, BUN/creatinine are 28 and 1.2, proBNP 4610
ECG A-fib, V paced 60
Impression:
Admitted with acute HF 08/12/24
Recent admission for acute HF to a hospital in [place], [place] 08/07/24 until 08/09/24
Recent admission for acute HF to [facility] 06/24/24 until 06/30/24
Acute on chronic HFmrEF
NICM EF 45-50% by echo 06/24/24
Aortic valve disease status
s/p bioprosthetic AVR #27 Berry-Carcamo at [facility] 2012
then s/p valve in valve TAVR at [facility] 4Permanent Afib
Chronic Eliquis OAC
s/p Medtronic PPM place at [facility] 02/2022
Nonobstructive CAD per cath 05/2012
Plan:
Overall, he is improved. He is getting close to dry weight. Probably transition to oral furosemide in the a.m.
Creatinine is reasonable, he is on an SGLT2 antagonist. No hyperkalemia. Add low-dose spironolactone. Not listed as an allergy.
We will increase the basal rate of his pacemaker to 70 from 60. This may help with his cardiac output.
Okay to begin discharge planning.
Original Note:
Today's Communication / Plan
-
Cont Lasix 80 mg IV BID
Impression / Plan
-
PCP: Dr. Merchant
Primary retirement specialist: previously Dr. Josh Prater at [facility] and now back to Dr. Bellamy
Impression:
Admitted with acute HF 08/12/24
Recent admission for acute HF to a hospital in [place], [place] 08/07/24 until 08/09/24
Recent admission for acute HF to [facility] 06/24/24 until 06/30/24
Acute on chronic HFmrEF
NICM EF 45-50% by echo 06/24/24
Aortic valve disease status
s/p bioprosthetic AVR #27 Berry-Carcamo at [facility] 2012
then s/p valve in valve TAVR at [facility] 08/2023
Permanent Afib
Chronic Eliquis OAC
s/p Medtronic PPM place at [facility] 02/2022
Nonobstructive CAD per cath 05/2012
SAMARIA 07/2012: EF 45%
Echo 01/2017, EF 50 to 55%, stable AVR, mean gradient 11
Echo 01/2019: EF 50-55%, stable AVR, mean gradient 6, PAP 34-39
Echo 12/17/20: EF 50 to 55%, mod LVH, mildly dilated RV with normal systolic function, severe LAE, well-seated bioprosthetic AV peak/mean 15/9 mmHg, mild to mod TR, PAP 43 to 48 mmHg, prox ascending aorta 4.5 cm
Echo 06/24/24: EF 45-50%, septal hypokinesis/contraction abnormality with severe inferoapical hypokinesis, mild MR, TAVR in SAVR peak/mean 12/6 mmHg with trace aortic regurgitation that could be underestimated due to acoustic shadowing, severely
dilated and hypokinetic RV with pacing wires identified and evidence of severe TR with marked RA dilatation
RHC 06/24/2024: RA 23, PA 55/20, PCWP 22, CO 4.9, CI 2.2
Plan:
-Weight is down 4 lbs overnight with Lasix 80 mg IV BID. Patient was taking Lasix 80 mg PO BID prior to admission.
-Patient had RHC 06/26/24 and PCWP was 22 mmHg which correlated with a weight of 208 lbs. Patient now weighs 184 lbs on 08/14/24
-Cre stable at 1.2 on labs reviewed by me 08/14/24. Patient has had DOMI during previous admission with IV diuresis.
-EF 45-50% by echo 06/24/24. Consider repeating echo given this is his 3rd HF admission in 2 months and to reassess TR and right heart.
-Patient reports TR seemed to be new after PPM and there was a thought by his team at [facility] that the TR would improve with TAVR, but it never did.
-Outpatient dose of Toprol XL 50 mg BID has been continued
-Patient was not taking JOEY/ARB/ARNI/aldosterone antagonist due to DOMI on previous admission. We should try to add losartan 25 mg daily this admission
-Outpatient dose of Jardiance 10 mg daily changed to Farxiga 10 mg daily due to formulary changes at , but will resume Jardiance at d/c.
-TAVR in SAVR with trace aortic regurgitation on echo.
-Patient with permanent Afib. No previous attempts at AAD or ablation as far as patient knows.
-Outpatient dose of Eliquis 5 mg BID (age 64, wt 85.457 kg, Cre 1.2) was continued
-LDL 50 last admission and patient is not chronically on statin.
-Device check reprogramming ordered by me 08/14/24, device rep asked to increase base rate to 70.
-ECG reviewed by me is v-paced 08/14/24
HPI: Patient came to the ER yesterday with increased SOB and was admitted with acute HF and cardiology is now consulted. Patient used to follow with Dr. Bellamy, but moved from the area and started to follow at [facility] and had a tissue AVR there in
2012, he had nonobstructive CAD at that time. Patient then switched to [facility] and had a PPM placed for bradycardia 02/2022. Patient reports he was recommended a valve in valve TAVR that was performed 08/2023 and at that time he had TR, but there
was a thought that his TR would get better with TAVR. Patient says that his TR never got any better and so he decided to come back to [facility] 06/2024 to re-establish care with our group. Patient was diuresed during his admission for 14 lbs and had a d/c
weight of 197 lbs on 06/30/24. Patient was seen in the office 07/02/24 and was taking Lasix 80 mg PO BID. Patient is compliant with daily weights and weight was 194 to 197 lbs following d/c, then patient took a one-way flight to [place] to buy a truck
07/28/24 and drove himself home in the truck. He reports eating fast food and medication noncompliance in that time. When he returned home he was ambulating with crutches due to painful LE edema and went to an urgent care who referred him to a
hospital in [place] and he was admitted from 08/07/24 until 08/09/24 with acute HF. Patient says he has continued to take Lasix 80 mg PO BID since then, but has not been as good about recording weights and overall has not felt better which resulted in
him bringing himself back to [facility], patient lives 1 hr 45 min from this hospital. Weight on admission was 188 lbs which is below previous dry weight but pro-BNP 4610 is higher than previous. Patient is not sure if he has lost any caloric weight and
he thinks he has been eating like normal. No chest pain.
Progress Note - Digital Traffic Coordinator
Subjective
Date of Service: August 14, 2024
He feels well
Objective
Labs:
08/14/24 08:13
08/14/24 08:13
Labs
Hgb 10.6 g/dL (13.0-18.0) L 08/14/24 08:13
Hct 33.2 % (39.0-52.0) L 08/14/24 08:13
Plt Count 345 10^3/uL (130-400) 08/14/24 08:13
PT 19.6 Sec (11.4-14.6) H 08/13/24 02:09
INR 1.64 08/13/24 02:09
APTT 47.5 Sec (23.4-35.0) H 08/13/24 02:09
Sodium 140 mmol/L (135-145) 08/14/24 08:13
Potassium 3.7 mmol/L (3.5-5.1) 08/14/24 08:13
BUN 28 mg/dl (9-20) H 08/14/24 08:13
Creatinine 1.2 mg/dL (0.7-1.3) 08/14/24 08:13
Glucose 146 mg/dl (70-99) H 08/14/24 08:13
Troponins
08/14/24
12:51
Troponin I 0.030
Vital Signs and I&O:
Vital Signs
Temp Pulse Resp BP Pulse Ox
97.7 F 62 18 114/68 96
08/14/24 15:59 08/14/24 15:59 08/14/24 15:59 08/14/24 15:59 08/14/24 15:59
Vital Signs
Temp Pulse Resp BP Pulse Ox
97.7 F 62 18 114/68 96
08/14/24 15:59 08/14/24 15:59 08/14/24 15:59 08/14/24 15:59 08/14/24 15:59
Intake & Output
08/12/24 08/13/24 08/14/24 08/15/24
06:59 06:59 06:59 06:59
Intake Total 600 / 600 1320 / 1320 900 / 900
Output Total 1175 / 1175 1890 / 1890 2024
Balance -575 / -575 -570 / -570 -1125 / -1125
Physical Exam
Physical Exam
GEN: NAD. AAOx3
HEENT: MMM
LUNGS: RA. No wheeze
CV: V paced on tele.
ABD: ND
EXT: +1 hard, nonpitting B/L malleolar edema
NEURO: Gross non-focal
SKIN: No rash
[2024-08-14 19:14] LABS: Hepatitis C Antibody Negative (Negative)
[2024-08-15 03:54] VITALS: BP 119/70
[2024-08-15 06:00] VITALS: BMI 24.4
--- NOTE | 2024-08-15 07:11 | W.PN.HOSP.TC ---
Addendum entered and electronically signed by Huber Roger MD 08/15/24 22:17:
Attending Addendum-
I saw and evaluated the patient. I reviewed the resident�s note and agree with findings and plan as documented in the resident�s note. Sub: Ready to go home. 'Ill be more active at home' Denies SOB CP palps PND orthopnea. Full 12 point ROS reviewed
and negative except as documented Exam: Vitals reviewed in chart GEN-NAD heart RRR 06/12 SM @ RUSB lungs fine mild crackles at bases abd obese soft NT ND LE 2+ pitting edema
Plan:
#Acute on chronic heart failure mid-range ejection fraction exacerbation
- Intake and output, daily weights fluid restrict - down 4 kgs! new dry weight 81kg
- Continue Toprol XL 25 mg twice daily
- transition to PO 80 BID (patient on prior furosemide 80 mg twice daily and noncompliant)
- echo 06/2024- ef 45-50%
- cards input appreciated
- cont NEW spironolactone
#AUD
-MSAS protocol-0,
-iv thiamine folate, prn ativan
# Tobacco Abuse
- advised to quit
#HTN�benign
-Continue Toprol XL 25 mg twice daily
#Aortic valvular disease/severe TR
#History of aortic root dilation
#Status-post TAVR 2023, prior AVR 2012
- Follows cardiology team at [facility]
#PULM HTN
#Permanent atrial fibrillation
-Continue metoprolol XL 25 mg twice daily, Eliquis 5 mg twice daily
# SSS
- has pacemaker
- increased basal rate
#Microcytic anemia/Iron deficiency anemia new Dx June 2024
#History of ULCERATIVE COLITIS without flare- Continue mesalamine
#Chronic back pain
- Continue acetaminophen as needed.
DVT prophylaxis
- Continue Eliquis 5 mg twice daily
CODE- full->DNR
PCP-Blore
Dispo - DC home
Time spent coordinating care, DC planning, review of DC plan of care with resident, transition of care, review of records, med rec/scripts sent electronically, consults, notes, d/w consultants, nursing, family, and CM� 32 mins
Original Note:
Today's Communication/Plan
-
Shift to oral Lasix
Plan discharge
Assessment / Plan
Assessment / Plan
Impression
Patient is a 64-year-old male with past medical history of cardiomyopathy, heart failure with mildly reduced ejection fraction, atrial fibrillation, bradycardia with pacemaker in place, history of TAVR and ulcerative colitis. Presented in emergency
with bilateral swelling of legs. Working diagnosis acute exacerbation of heart failure.
Assessment and plan
1. Acute exacerbation of heart failure with mildly reduced ejection fraction
History of chronic heart failure with mildly reduced ejection fraction of 45 to 45%
History of bioprosthetic aortic valve replacement in 2012 and TAVR in 2023
Presented with increased work of breathing and bilateral lower extremity edema
Last echo June 2024, ejection fraction 40 to 45% weight 188 pounds, which is below his baseline of 198
Currently on 80 mg Lasix IV twice daily-shifted to oral Lasix today
Added spironolactone 12.5 mg daily
On Farxiga, metoprolol succinate extended release
Weight decreased by 2 kg since yesterday and 4 kg since admission-1620/4425 input output
Cardiology recs appreciated
2. Bilateral lower extremity edema
Started post long trip to [place], with minimal breaks, and salty food
Patient remained compliant to his Lasix dose of 80 mg twice daily
Bilateral pitting edema of legs with red rash on both legs along with itching, possibly due to fluid retention
No DVT --confirmed with peripheral vascular ultrasound
Continue diuresis-swelling improving-patient close to his dry weight
3. Permanent atrial fibrillation
Past history of paroxysmal atrial fibrillation and flutter-had multiple cardioversions
Permanent atrial fibrillation from a year
On rate control with metoprolol and anticoagulation with Eliquis
Pacemaker rate increased from 60-70, to help the heart pump better and help with the heart failure
4.Alcohol use disorder
Drinks 4 beers every Sunday
Does not want to quit
Patient on MSAS protocol-last drink 2 days ago
Continue to monitor for any withdrawal signs
Other medical conditions.
Ulcerative colitis-stable on mesalamine
Chronic anemia-hemoglobin 10.3-continue to monitor
Essential hypertension-continue home medications
Hyperlipidemia-patient practicing lifestyle modifications,not taking atorvastatin
DVT prophylaxis-Eliquis
CODE STATUS-DNR
Anticipated Discharge: Within 24 hours
Subjective/Interval History
-
Date of Service: August 15, 2024
Feeling fine, reduce swelling of legs, symptomatically improved
Objective Data
-
Labs:
Laboratory Results
08/15/24
06:00
WBC Pending
Hgb Pending
Hct Pending
Plt Count Pending
Sodium Pending
Potassium Pending
Chloride Pending
Carbon Dioxide Pending
BUN Pending
Creatinine Pending
Glucose Pending
Calcium Pending
Total Bilirubin Pending
AST Pending
ALT Pending
Alkaline Phosphatase Pending
Vital Signs:
Vital Signs
Temp Pulse Resp BP Pulse Ox
97.8 F 65 17 119/70 93
08/15/24 03:54 08/15/24 03:54 08/15/24 03:54 08/15/24 03:54 08/15/24 03:54
I&O
08/14/24 08/15/24 08/16/24
06:59 06:59 06:59
Intake Total 1320 / 1320 1620 / 1620
Output Total 1890 / 1890 4425 / 4425
Balance -570 / -570 -2805 / -2805
Review of Systems
-
All other systems: Reviewed and negative
Physical Exam
-
General: No Apparent Distress, Comfortable and Conversant
HEENT: Normocephalic, Atraumatic and Other (Breathing on room air)
Respiratory: Clear to Auscultation and Other (No wheezes rales or rhonchi)
Cardiac: Regular Rhythm, S1/S2 and Other (No murmurs rubs or gallop)
GI: Soft, Nontender, Nondistended and Normal Bowel Sounds
Musculoskeletal: Edema, Right Lower Extrem, Edema, Left Lower Extrem and Other (Nonpitting edema, improved since yesterday, pedal pulses and posterior tibial pulses palpable)
Neuro: Awake, Oriented and No Motor Deficits
Psych: Calm
[2024-08-15 07:45] VITALS: BP 121/73
[2024-08-15 07:56] LABS: % Basophils 1.5 % (0-2); % Immature Granulocytes 0.3 % (0-0.5); % Lymphocytes 10.8 % (20.5-51.1); % Monocytes 10.9 % (1.7-9.3); % Neutrophils 71.5 % (42.2-75.2); Absolute Basophils 0.1 10^3/uL (0-0.2); Absolute Eosinophils 0.3 10^3/uL (0-0.7); Absolute Lymphocytes 0.7 10^3/uL (1.2-3.4); Absolute Monocytes 0.7 10^3/uL (0.1-0.6); Absolute Neutrophils 4.9 10^3/uL (1.4-6.5); Hemoglobin 11.6 g/dL (13.0-18.0); Mean Corp Hgb Conc. 31.4 g/dL (33.0-37.0); Mean Corpuscular Hgb 27.4 pg (27.0-31.0); Mean Corpuscular Volume 87.3 fL (80.0-94.0); Mean Platelet Volume 8.4 fL (7.4-10.4); Nucleated Red Blood Cells % 0 % (-); Platelet Count 394 10^3/uL (130-400); Red Blood Cell Count 4.24 10^6/uL (4.70-6.10); Red Cell Dist. Width 25.5 % (11.5-14.5); White Blood Cell Count 6.8 10^3/uL (4.8-10.8)
[2024-08-15 08:16] LABS: ALT (SGPT) 31 U/L (0-50); AST (SGOT) 38 U/L (17-59); Albumin 3.6 g/dl (3.5-5.0); Alkaline Phosphatase 216 U/L (38-126); Blood Urea Nitrogen 28 mg/dl (9-20); Calcium 9.3 mg/dl (8.4-10.2); Carbon Dioxide 27 mmol/L (22-30); Chloride 104 mmol/L (98-107); Estimated Creatinine Clearance 68 ml/min; Glucose 94 mg/dl (70-99); Magnesium 2.1 mg/dl (1.6-2.3); Sodium 142 mmol/L (135-145); Total Bilirubin 1.2 mg/dl (0.2-1.3); eGFR > 60.00
[2024-08-15] MEDS: LASIX 80 MG IV (08:34)
[2024-08-15] MEDS: THIAMINE INJECTION 200 MG IV (08:35)
[2024-08-15] MEDS: ASPIR LOW (ENTERIC COATED) 81 MG PO (08:36)
[2024-08-15] MEDS: TOPROL XL 50 MG PO (08:36)
[2024-08-15] MEDS: ALDACTONE 12.5 MG PO (08:36)
[2024-08-15] MEDS: VITAMIN C 1000 MG PO (08:36)
[2024-08-15] MEDS: FARXIGA 10 MG PO (08:36)
[2024-08-15] MEDS: FOLVITE 1 MG PO (08:36)
[2024-08-15] MEDS: ELIQUIS 5 MG PO (08:36)
[2024-08-15] MEDS: KCL 20 MEQ PO (08:36)
[2024-08-15 11:30] VITALS: BP 113/69
--- NOTE | 2024-08-15 12:05 | W.PN.CARDCBS ---
Addendum entered and electronically signed by Calin Curiel MD 08/15/24 15:55:
64-year-old man admitted with acute heart failure with mildly reduced EF, with recent hospital stay in June for the same.
PMH: Bioprosthetic AVR at [facility] 2012, valve in valve TAVR August 2023, permanent A-fib, Medtronic pacemaker, nonobstructive CAD
Medications: Reviewed
113/69, pulse 61, weight is 81.45 kg, down 2.1 kg
Hemoglobin 11.6, BUN/creatinine 28 and 1.2, potassium 4,
Impression:
See below
Plan:
Volume status looks reasonable.
Okay for discharge
BMP in 1 week
Original Note:
Today's Communication / Plan
-
Transition to PO lasix 80mg BID
Check BMP in 1 week.
Continue Toprol, Farxiga (can switch back to Jardiance at discharge), and spironolactone.
Continue Eliquis 5mg BID
Follow up arranged.
Impression / Plan
-
PCP: Dr. Merchant
Primary checker bakery products: previously Dr. Josh Prater at [facility] and now back to Dr. Bellamy
Impression:
Admitted with acute HF 08/12/24
Recent admission for acute HF to a hospital in [place], [place] 08/07/24 until 08/09/24
Recent admission for acute HF to [facility] 06/24/24 until 06/30/24
Acute on chronic HFmrEF
NICM EF 45-50% by echo 06/24/24
Aortic valve disease status
s/p bioprosthetic AVR #27 [employer]arcamo at [facility] 2012
then s/p valve in valve TAVR at [facility] 08/2023
Permanent Afib
Chronic Eliquis OAC
s/p Medtronic PPM place at [facility] 02/2022
Nonobstructive CAD per cath 05/2012
SAMARIA 07/2012: EF 45%
Echo 01/2017, EF 50 to 55%, stable AVR, mean gradient 11
Echo 01/2019: EF 50-55%, stable AVR, mean gradient 6, PAP 34-39
Echo 12/17/20: EF 50 to 55%, mod LVH, mildly dilated RV with normal systolic function, severe LAE, well-seated bioprosthetic AV peak/mean 15/9 mmHg, mild to mod TR, PAP 43 to 48 mmHg, prox ascending aorta 4.5 cm
Echo 06/24/24: EF 45-50%, septal hypokinesis/contraction abnormality with severe inferoapical hypokinesis, mild MR, TAVR in SAVR peak/mean 12/6 mmHg with trace aortic regurgitation that could be underestimated due to acoustic shadowing, severely
dilated and hypokinetic RV with pacing wires identified and evidence of severe TR with marked RA dilatation
RHC 06/24/2024: RA 23, PA 55/20, PCWP 22, CO 4.9, CI 2.2
Plan:
-Presented with SOB. Admitted with acute heart failure. Recent admissions for HF as noted above.
-Diuresing with IV lasix 80mg BID.
-Weight down another 5lbs overnight, down to 179 lbs. on 08/15. Creat stable at 1.2
-Appears euvolemic. Would transition to PO lasix 80mg BID.
-EF 45-50% by echo 06/24/24.
-Continue Toprol, Farxiga, and spironolactone.
-Check BMP in 1 week
-Known permanent Afib. No previous attempts at AAD or ablation as far as patient knows.
-HR stable on current dose of Toprol. Continue Eliquis 5mg BID.
-LDL 50 last admission and patient is not chronically on statin.
-Cardiology follow up arranged.
HPI: Patient came to the ER yesterday with increased SOB and was admitted with acute HF and cardiology is now consulted. Patient used to follow with Dr. Bellamy, but moved from the area and started to follow at [facility] and had a tissue AVR there in
2012, he had nonobstructive CAD at that time. Patient then switched to [facility] and had a PPM placed for bradycardia 02/2022. Patient reports he was recommended a valve in valve TAVR that was performed 08/2023 and at that time he had TR, but there
was a thought that his TR would get better with TAVR. Patient says that his TR never got any better and so he decided to come back to [facility] 06/2024 to re-establish care with our group. Patient was diuresed during his admission for 14 lbs and had a d/c
weight of 197 lbs on 06/30/24. Patient was seen in the office 07/02/24 and was taking Lasix 80 mg PO BID. Patient is compliant with daily weights and weight was 194 to 197 lbs following d/c, then patient took a one-way flight to [place] to buy a truck
07/28/24 and drove himself home in the truck. He reports eating fast food and medication noncompliance in that time. When he returned home he was ambulating with crutches due to painful LE edema and went to an urgent care who referred him to a
hospital in [place] and he was admitted from 08/07/24 until 08/09/24 with acute HF. Patient says he has continued to take Lasix 80 mg PO BID since then, but has not been as good about recording weights and overall has not felt better which resulted in
him bringing himself back to [facility], patient lives 1 hr 45 min from this hospital. Weight on admission was 188 lbs which is below previous dry weight but pro-BNP 4610 is higher than previous. Patient is not sure if he has lost any caloric weight and
he thinks he has been eating like normal. No chest pain.
Progress Note - Food Runner
Subjective
Date of Service: August 15, 2024
Feeling improved. No SOB w/ ambulation. Edema improved.
Objective
Labs:
08/15/24 07:19
08/15/24 07:19
Labs
Hgb 11.6 g/dL (13.0-18.0) L 08/15/24 07:19
Hct 37.0 % (39.0-52.0) L 08/15/24 07:19
Plt Count 394 10^3/uL (130-400) 08/15/24 07:19
PT 19.6 Sec (11.4-14.6) H 08/13/24 02:09
INR 1.64 08/13/24 02:09
APTT 47.5 Sec (23.4-35.0) H 08/13/24 02:09
Sodium 142 mmol/L (135-145) 08/15/24 07:19
Potassium 4.0 mmol/L (3.5-5.1) 08/15/24 07:19
BUN 28 mg/dl (9-20) H 08/15/24 07:19
Creatinine 1.2 mg/dL (0.7-1.3) 08/15/24 07:19
Glucose 94 mg/dl (70-99) 08/15/24 07:19
Troponins
08/14/24
12:51
Troponin I 0.030
Vital Signs and I&O:
Vital Signs
Temp Pulse Resp BP Pulse Ox
97.7 F 62 16 117/70 98
08/15/24 07:45 08/15/24 08:34 08/15/24 07:45 08/15/24 08:34 08/15/24 07:45
Vital Signs
Temp Pulse Resp BP Pulse Ox
97.7 F 62 16 117/70 98
08/15/24 07:45 08/15/24 08:34 08/15/24 07:45 08/15/24 08:34 08/15/24 07:45
Intake & Output
08/13/24 08/14/24 08/15/24 08/16/24
06:59 06:59 06:59 06:59
Intake Total 600 / 600 1320 / 1320 1620 / 1620
Output Total 1175 / 1175 1890 / 1890 4425 / 4435
Balance -575 / -575 -570 / -570 -2805 / -2805
Physical Exam
Physical Exam
GEN: No distress, awake, alert, oriented x3
HEENT: supple, anicteric, mmm
LUNGS: CTA b/l, no wheezes/rales
CV: Reg, S1/S2, no murmur
EXT: No clubbing, cyanosis, or edema
NEURO: Gross non-focal
SKIN: Warm, dry, no rash
[2024-08-15] MEDS: LASIX 80 MG PO (14:29)
--- NOTE | 2024-08-15 17:53 | W.DCSUMMARY ---
Addendum entered and electronically signed by Huber Roger MD 08/15/24 22:18:
Read, reviewed, and agree. See same day progress note for additional details.
Raymond Roger MD
Original Note:
Documented by User: Jerrell Xavier MD, Resident 08/15/24 18:05
Discharge Summary
Discharge Data
Date of Admission: 08/12/24
Date of Discharge: 08/15/24
-
Pending Results: No
Hospital Course
Discharging Physician :
Huber Roger
Disposition :
Home with home care
Primary care physician :
Mario Merchant MD
Principal Discharge diagnosis :
Acute on chronic heart failure with mildly reduced ejection fraction/alcohol use disorder/atrial fibrillation
Chronic Discharge diagnosis :
Essential Hypertension
Aortic Valve Disease s/p AVR 2012 and then [id number]
Permanent Atrial Fibrillation
Ulcerative Colitis
Chronic Anemia
(HFpEF; AFib; pacemaker in place; dilated aortic root;
Hospital Course :
Patient is a 64-year-old male with past medical history of cardiomyopathy, heart failure with mildly reduced ejection fraction, atrial fibrillation, bradycardia with pacemaker in place, history of TAVR and ulcerative colitis. Presented in emergency
with bilateral swelling of legs. Admitted with acute exacerbation of heart failure.
1. Acute exacerbation of heart failure with mildly reduced ejection fraction
History of chronic heart failure with mildly reduced ejection fraction of 45 to 45%
History of bioprosthetic aortic valve replacement in 2012 and TAVR in 2023
Presented with increased work of breathing and bilateral lower extremity edema
Received 80 mg of Lasix in ER-responded well
Last echo June 2024, ejection fraction 40 to 45% weight 188 pounds, which is below his baseline of 198
Cardiology recommendations appreciated-continued home dose of Lasix, Farxiga and metoprolol succinate, added spironolactone 12.5 mg daily
Emphasized the importance of compliance to medication
2. Bilateral lower extremity edema
Started post long trip to [place], with minimal breaks, and salty food
As per patient he remained compliant to his Lasix dose of 80 mg twice daily
No DVT --confirmed with peripheral vascular ultrasound
Swelling went down with diuresis
3. Permanent atrial fibrillation
Past history of paroxysmal atrial fibrillation and flutter-had multiple cardioversions
Permanent atrial fibrillation from a year
On rate control with metoprolol and anticoagulation with Eliquis
Pacemaker heart rate increased from 60 to 70, for improved heart pumping
4.Alcohol use disorder
Drinks 4 beers every Sunday
Does not want to quit
Patient on MSAS protocol-score remains 0
Follow-up on outpatient basis with PCP
Important imaging findings :
Extremity arterial study 08/13/2024
IMPRESSION: No evidence of significant bilateral lower extremity arterial insufficiency. Bilateral ankle-brachial indices are within normal limits. Multiphasic waveforms from bilateral common femoral through popliteal arteries with no velocity
elevations to suggest any significant stenoses. Continuous Doppler waveforms at the bilateral dorsalis pedis and posterior tibial arteries are multiphasic bilaterally. Left toe brachial index is moderately reduced at 0.46 suggestive of possible
small vessel disease (inframalleolar) in the left lower extremity.
chest x-ray 08/12/2024
IMPRESSION:
1. Severe cardiomegaly with suggestion of mild interstitial cardiogenic pulmonary edema.
2. Mildly decreased bilateral lung volumes with mild subsegmental atelectasis/scarring in the lower lungs.
3. Left-sided cardiac pacemaker in place.
4. Previous aortic valve replacement.
Procedure findings :
SAMARIA 07/2012: EF 45%
Echo 01/2017, EF 50 to 55%, stable AVR, mean gradient 11
Echo 01/2019: EF 50-55%, stable AVR, mean gradient 6, PAP 34-39
Echo 12/17/20: EF 50 to 55%, mod LVH, mildly dilated RV with normal systolic function, severe LAE, well-seated bioprosthetic AV peak/mean 15/9 mmHg, mild to mod TR, PAP 43 to 48 mmHg, prox ascending aorta 4.5 cm
Echo 06/24/24: EF 45-50%, septal hypokinesis/contraction abnormality with severe inferoapical hypokinesis, mild MR, TAVR in SAVR peak/mean 12/6 mmHg with trace aortic regurgitation that could be underestimated due to acoustic shadowing, severely
dilated and hypokinetic RV with pacing wires identified and evidence of severe TR with marked RA dilatation
C 06/24/2024: RA 23, PA 55/20, PCWP 22, CO 4.9, CI 2.2
Discharge Plan
-
Patient Disposition: Home with Home Care
Discharge Diagnosis/Procedures: Acute on chronic heart failure with mildly reduced ejection fraction/alcohol use disorder/atrial fibrillation
Condition: Fair
Diet: Low Cholesterol, 2 Gram Sodium and Restrict fluids to 48 oz
Activity: As tolerated
Driving Restrictions: As prior to admission
Bathing Restrictions: OK to Shower
Blood Work: Repeat BMP in a week and follow-up with primary care physician
Other Services: PT
Specialty Instructions: Weigh Daily- Call MD for wt gain/loss 3 lbs overnight/5 lbs in 1 week
Instructions: *[facility] Heart Failure Instructions
Referrals:
Verena Clay PA-C [Specified Professional Personl] - 08/27/24 1:20 pm (You have a follow up visit with cardiology at the [place] office. Please call with questions. )
Mario Merchant MD [Family Provider] - in less than 1 week
Additional Discharge Medication Instructions: As per cardiology, pacemaker rate increased from 60 to 70
Spironolactone 12.5mg daily added
continue 80mg lasix twice daily
Aspirin discontinued
Prescriptions:
New
spironolactone 25 mg Tablet
12.5 mg PO DAILY 30 Days Qty: 30 0RF
Continued
mesalamine [Lialda] 1.2 GM tablet,delayed release (DR/EC)
4.8 g PO DAILY
Eliquis 5 MG tablet
5 mg PO BID
furosemide [Lasix] 40 mg Tablet
80 mg PO BID
acetaminophen [Tylenol 8 Hour] 650 mg Tablet Extended Release
1,300 mg PO [id number] PRN (Reason: mild pain)
potassium chloride 20 mEq Tablet Extended Release
20 meq PO BID
Jardiance 10 mg Tablet
10 mg PO DAILY
ascorbic acid (vitamin C) 1,000 mg Tablet
1,000 mg PO DAILY
metoprolol succinate [Toprol XL] 25 mg tablet extended release 24 hr
50 mg PO BID
Discontinued
aspirin [Zhao Low Dose Aspirin] 81 mg Tablet,Delayed Release (Dr/Ec)
81 mg PO DAILY
Discharge Orders:
Discharge Patient (As Directed); Ordered 08/15/24
Ordered By: Jerrell Xavier
Discharge Date and Time
Discharge Date/Time: 08/15/24 15:24
Print Language: TRINIDADIAN

Documented by User: Huber Roger MD 08/15/24 22:13
Discharge Summary
Discharge Data
Date of Admission: 08/12/24
Date of Discharge: 08/15/24
Discharge Plan
-
Patient Disposition: Home with Home Care
Discharge Diagnosis/Procedures: Acute on chronic heart failure with mildly reduced ejection fraction/alcohol use disorder/atrial fibrillation
Condition: Fair
Diet: Low Cholesterol, 2 Gram Sodium and Restrict fluids to 48 oz
Activity: As tolerated
Driving Restrictions: As prior to admission
Bathing Restrictions: OK to Shower
Blood Work: Repeat BMP in a week and follow-up with primary care physician
Other Services: PT
Specialty Instructions: Weigh Daily- Call MD for wt gain/loss 3 lbs overnight/5 lbs in 1 week
Instructions: *[facility] Heart Failure Instructions
Referrals:
Verena Clay PA-C [Specified Professional Personl] - 08/27/24 1:20 pm (You have a follow up visit with cardiology at the [place] office. Please call with questions. )
Mario Merchant MD [Family Provider] - in less than 1 week
Additional Discharge Medication Instructions: As per cardiology, pacemaker rate increased from 60 to 70
Spironolactone 12.5mg daily added
continue 80mg lasix twice daily
Aspirin discontinued
Prescriptions:
New
spironolactone 25 mg Tablet
12.5 mg PO DAILY 30 Days Qty: 30 0RF
Continued
mesalamine [Lialda] 1.2 GM tablet,delayed release (DR/EC)
4.8 g PO DAILY
Eliquis 5 MG tablet
5 mg PO BID
furosemide [Lasix] 40 mg Tablet
80 mg PO BID
acetaminophen [Tylenol 8 Hour] 650 mg Tablet Extended Release
1,300 mg PO [id number] PRN (Reason: mild pain)
potassium chloride 20 mEq Tablet Extended Release
20 meq PO BID
Jardiance 10 mg Tablet
10 mg PO DAILY
ascorbic acid (vitamin C) 1,000 mg Tablet
1,000 mg PO DAILY
metoprolol succinate [Toprol XL] 25 mg tablet extended release 24 hr
50 mg PO BID
Discontinued
aspirin [Zhao Low Dose Aspirin] 81 mg Tablet,Delayed Release (Dr/Ec)
81 mg PO DAILY
Discharge Orders:
Discharge Patient (As Directed); Ordered 08/15/24
Ordered By: Jerrell Xavier
Discharge Date and Time
Discharge Date/Time: 08/15/24 15:24
Print Language: TRINIDADIAN
--- NOTE | 2024-08-18 11:03 | W.HF.CON ---
Heart Failure
- LV Function
Left ventricular function study result: LV Ejection fraction >/= 50%
Ejection Fraction Percentage: 45-50
- ARNI
Patient already on ARNI: No
Heart Failure ARNI Not Indicated: LV Ejection Fraction >/= 40%
- ACEI/ARB
Patient already on ACEI/ARB: No
Heart Failure ACEI/ARB Not Indicated: LV Ejection Fraction > 40%
- Beta Idalmis
Patient already on Evidence Based Beta Idalmis: Yes
- Mineralocorticord Receptor Antagonist
Patient already on MRA: Yes
- SGLT-2 Inhibitor
Patient already on SGLT-2 Inhibitor: Yes
- Afib Anticoagulation
Patient already on Anticoagulation for Afib: Yes
- NYHA CHF Classification
NYHA CHF Classification Level: Class III - Symptoms w/ min exertion, interferes w/ nml daily activity
- ACC/AHA Stage
ACC/AHA Stage: Stage C: Symptomatic Heart Failure
== END 2024-08-15 15:24 | disposition home health service (06) | DRG 291 ==
LOC: 4 EAST ACU 23:14
PROVIDERS: Clinical Nurse Specialist Family Health; Internal Medicine Cardiovascular Disease; Physician Assistant; ADMITTING PHYSICIAN Hospitalist; ATTENDING PHYSICIAN Family Medicine; EMERGENCY PHYSICIAN Student in an Organized Health Care Education/Training Program; FAMILY PHYSICIAN Family Medicine; OTHER PHYSICIAN Internal Medicine Cardiovascular Disease
DX: I11.0 Hypertensive heart disease with heart failure (principal); I50.23 Acute on chronic systolic (congestive) heart failure; I48.21 Permanent atrial fibrillation; N17.9 Acute kidney failure, unspecified; K51.90 Ulcerative colitis, unspecified, without complications; J98.11 Atelectasis; R17 Unspecified jaundice; R26.2 Difficulty in walking, not elsewhere classified; D64.9 Anemia, unspecified; I07.1 Rheumatic tricuspid insufficiency; I35.9 Nonrheumatic aortic valve disorder, unspecified; I27.20 Pulmonary hypertension, unspecified; R74.8 Abnormal levels of other serum enzymes; D50.9 Iron deficiency anemia, unspecified; G89.29 Other chronic pain; I25.10 Atherosclerotic heart disease of native coronary artery without angina pectoris; I42.8 Other cardiomyopathies; F10.10 Alcohol abuse, uncomplicated; M54.9 Dorsalgia, unspecified; I77.810 Thoracic aortic ectasia; E11.9 Type 2 diabetes mellitus without complications; E78.5 Hyperlipidemia, unspecified; Z66 Do not resuscitate; Z79.01 Long term (current) use of anticoagulants; Z79.84 Long term (current) use of oral hypoglycemic drugs; Z95.3 Presence of xenogenic heart valve; Z87.891 Personal history of nicotine dependence; Z82.49 Family history of ischemic heart disease and other diseases of the circulatory system; Z88.0 Allergy status to penicillin; Z79.82 Long term (current) use of aspirin; Z95.0 Presence of cardiac pacemaker; Z91.148 Patient's other noncompliance with medication regimen for other reason; Z91.119 Patient's noncompliance with dietary regimen due to unspecified reason
CPT/HCPCS: 71046; 80053; 80306; 81003; 82010; 82077; 82977; 83735; 83880; 84100; 84484; 85025; 85610; 85730; 86803; 93005; 93922; 93925; 93970; 97116; 97162; 97530

== ENCOUNTER → 2024-12-05 10:07 | Outpatient (REF) | payer OTHER, SELFPAY | LOC: RCS 10:07 | PROVIDERS: ATTENDING PHYSICIAN Internal Medicine Cardiovascular Disease; FAMILY PHYSICIAN Family Medicine | DX: I36.1 Nonrheumatic tricuspid (valve) insufficiency (principal) | CPT/HCPCS: 93306 ==